=== PATIENT | female | born 1950 | race Caucasian/White ===

== ENCOUNTER 2017-03-07 20:08 | Emergency (ER) | payer OTHER, MEDICAID ==
[~2017-03-07] VITALS: Ht 157.5 cm; Wt 113.4 kg
[2017-03-07 20:24] VITALS: BP_SYST 182
[2017-03-07] MEDS ORDERED: ACETAMINOPHEN/CODEINE 300 MG-30 MG TABLET PO ONE (21:15)
--- NOTE | 2017-03-07 21:18 | NUR ---
Patient to ER bed 3 to gown for evaluation. Side rails up. Report given to Schuyler BUNN.
--- NOTE | 2017-03-07 21:20 | NUR ---
Pt had a mechanical fall resulting in hurting her R ankle. Pain with ROM. Will continue to monitor. No distress needed.
--- NOTE | 2017-03-07 21:25 | NUR ---
ER Dr. Weinberg at bedside examining patient.
[2017-03-07] MEDS ORDERED: KETOROLAC TROMETHAMINE 60 MG/2 ML VIAL IM ONE (22:30)
[2017-03-07] MEDS ORDERED: MORPHINE 4 MG/ML INJ. SYRINGE IM ONE (23:45)
[2017-03-08] MEDS ORDERED: MORPHINE 2 MG/ML INJ. SYRINGE ONE (00:07)
[2017-03-08 01:30] VITALS: BP_SYST 104
--- NOTE | 2017-03-08 01:30 | NUR ---
Patient given written and verbal discharge instructions and verbalizes understanding. ER MD discussed with patient the results and treatment provided. Patient in stable condition. ID arm band removed. Rx of Naproysn given. Patient educated on pain management and to follow up with PMD. Pain Scale 0/10. Opportunity for questions provided and answered.
== END 2017-03-08 01:30 | disposition home or self-care (01) ==
LOC: SED 20:08
DX: S93.401A Sprain of unspecified ligament of right ankle, initial encounter (principal); N18.9 Chronic kidney disease, unspecified; E11.22 Type 2 diabetes mellitus with diabetic chronic kidney disease; W01.0XXA Fall on same level from slipping, tripping and stumbling without subsequent striking against object, initial encounter; Y93.89 Activity, other specified; Y92.89 Other specified places as the place of occurrence of the external cause; Y99.8 Other external cause status
CPT/HCPCS: 73600; 96372; 99284; J1885; J2270

== ENCOUNTER 2018-01-31 00:18 | Inpatient (IN) | payer OTHER, MEDICAID ==
[~2018-01-31] VITALS: Ht 154.9 cm; Wt 108.0 kg
[2018-01-31 00:20] VITALS: BP_SYST 103
[2018-01-31] MEDS ORDERED: NACL 0.9% 1,000 ML IV ONE (00:22)
--- NOTE | 2018-01-31 00:23 | NUR ---
Pt was brought in by BLS complaining of right ankle pain s/p fall. Per EMT, pt was trying to plug in her scooter when her leg gave out causing patient to fall. Per patient, she felt as if it twisted and noticed that her right ankle was "doing something else than her normal leg." noted swelling to right ankle. Pt able to move toes minimally due to pain. Pedal pulse palpable. No other injuries/complaints per patient or noted.
--- NOTE | 2018-01-31 00:23 | NUR ---
Patient to ER bed 6 to gown for evaluation. Side rails up.
--- NOTE | 2018-01-31 00:24 | NUR ---
ER Dr. Silva at bedside examining patient.
[2018-01-31] MEDS ORDERED: MORPHINE 4 MG/ML INJ. SYRINGE IVP ONE ×2 (00:30→02:00)
[2018-01-31] MEDS ORDERED: DIPHENHYDRAMINE INJ 50 MG/ML VIAL IVP ONE (00:30)
[2018-01-31] MEDS ORDERED: ONDANSETRON HCL 4 MG/2 ML VIAL IVP ONE (00:30)
--- NOTE | 2018-01-31 00:33 | NUR ---
Xray at patient bedside. Pt tolerated well.
[2018-01-31] MEDS ORDERED: GABA-529 PO (00:52)
[2018-01-31] MEDS ORDERED: BACTROBAN TP (00:52)
[2018-01-31] MEDS ORDERED: FENO48TA4 PO (00:52)
[2018-01-31] MEDS ORDERED: GLIP-214 PO (00:52)
[2018-01-31] MEDS ORDERED: DITXL5 PO (00:52)
[2018-01-31] MEDS ORDERED: MIRT30TA7 PO (00:52)
[2018-01-31] MEDS ORDERED: TRAM1TAB33 PO (00:52)
[2018-01-31] MEDS ORDERED: LIP10 PO (00:52)
[2018-01-31] MEDS ORDERED: GLUC1VIA4 IJ (00:52)
[2018-01-31] MEDS ORDERED: INSNLG7030 SUBCUT ×2 (00:52)
[2018-01-31] MEDS ORDERED: FURO-150 PO (00:52)
[2018-01-31] MEDS ORDERED: ALEN70TA27 PO (00:52)
[2018-01-31] MEDS ORDERED: LEVOCETRIZINE PO (00:52)
[2018-01-31] MEDS ORDERED: LEVO-100 PO (00:52)
[2018-01-31] MEDS ORDERED: IBUP-1969 PO (00:52)
[2018-01-31] MEDS ORDERED: CLOB50SO2 TP (00:52)
[2018-01-31] MEDS ORDERED: LORA-259 PO (00:52)
[2018-01-31] MEDS ORDERED: BETA45CR3 TP (00:52)
[2018-01-31] MEDS ORDERED: ESCI10TA PO (00:52)
[2018-01-31] MEDS ORDERED: SSREG SUBCUT (00:52)
[2018-01-31] MEDS ORDERED: FLUT16SP16 NS (00:52)
[2018-01-31] MEDS ORDERED: TERC45CR3 VG (00:52)
[2018-01-31] MEDS ORDERED: NYSCR30 TP (00:52)
--- NOTE | 2018-01-31 00:52 | NUR ---
Medication reconciliation completed with information provided by patient. Any prior medication reconciliation on file was reviewed and corrected.
--- NOTE | 2018-01-31 01:02 | NUR ---
Medications were given, pt tolerated well. No adverse reaction, will continue to monitor.
[2018-01-31 01:24] LABS: BASOPHILS # (AUTO) 0.2 K/uL (0.0-0.2); BASOPHILS % (AUTO) 1.6 % (0.0-2.0); EOSINOPHILS # (AUTO) 0.3 K/uL (0.0-0.4); HEMATOCRIT 41.6 % (36-48); HEMOGLOBIN 13.2 g/dL (12.0-16.0); LYMPHOCYTES # (AUTO) 2.9 K/uL (1.0-5.5); LYMPHOCYTES % (AUTO) 28.3 % (20.5-51.5); MEAN CORPUSCULAR HEMOGLOBIN 25 pg (27-31); MEAN CORPUSCULAR HGB CONC 32 % (32-36); MEAN CORPUSCULAR VOLUME 78 fL (79.0-98.0); MONOCYTES # (AUTO) 0.5 K/uL (0.0-1.0); MONOCYTES % (AUTO) 5.1 % (1.7-9.3); NEUTROPHILS # (AUTO) 6.5 K/uL (1.8-7.7); PLATELET COUNT (AUTO) 401 K/uL (130-430); RED BLOOD CELL COUNT(AUTO) 5.35 MIL/uL (4.2-6.2); RED CELL DISTRIBUTION WIDTH 14.9 % (9.0-15.0); WHITE BLOOD COUNT (AUTO) 10.4 K/uL (4.8-10.8)
[2018-01-31 01:26] LABS: CALCIUM 8.5 mg/dL (8.4-11.0); CREATININE 1.72 mg/dL (0.55-1.30); POTASSIUM 3.8 mmol/L (3.5-5.1)
[2018-01-31 01:33] LABS: PROTHROMBIN TIME 10.1 SECS (9.5-12.5)
[2018-01-31 01:34] LABS: ALBUMIN 3.2 g/dL (3.4-4.8); TOTAL BILIRUBIN 0.3 mg/dL (0.0-1.0)
--- NOTE | 2018-01-31 02:19 | NUR ---
Patient will be admitted to care of Dr. Burleson. Admitted to Med Surg unit. Will go to room 135. Belongings list completed. Summary report printed. Report will be given at bedside.
--- NOTE | 2018-01-31 02:24 | NUR ---
ADMISSION NOTE Received patient from ER via naresh, received report from Eulalia BUNN. Patient admitted with diagnosis of ankle fracture. Patient oriented to hospital routine, call light, toileting and safety-patient verbalized understanding.
[2018-01-31 02:27] VITALS: BP_SYST 157
--- NOTE | 2018-01-31 02:43 | NUR ---
INITIAL NOTE PATIENT RECEIVED FROM ADMIT NURSE JT. PATIENT IS RESTING IN BED, STABLE, NO SIGNS OF RESPIRATORY DISTRESS. PATIENT ORIENTED TO ROOM. CALL LIGHT- TEACH BACK IS SUCCESSFUL. BED IS LOCKED, ALARMED, AND AT THE LOWEST LEVEL. FALL AND SAFETY PRECAUTIONS WILL BE IN PLACE THROUGHOUT THE SHIFT.
--- NOTE | 2018-01-31 03:04 | NUR ---
Consultation Called Reason for Consultation: RT Foot Fracture Was consult called: Y Person who was notified: Ashly Consulting Physician: Dr. Fitzgerald (Dr. Mary trailers and motor homes salesperson) Ratoprinter Ordering Physician: Dr. Burleson
--- NOTE | 2018-01-31 03:18 | NUR ---
PAGED DR. JOHNSON FOR NEW ADMISSION ROOM 114B REGARDING ORDERS.
--- NOTE | 2018-01-31 04:08 | NUR ---
PAGED DR. JOHNSON FOR NEW ADMISSION IN ROOM 114B REGARDING ORDERS.
--- NOTE | 2018-01-31 04:35 | NUR ---
PAGED DR. JOHNSON FOR NEW ADMISSION IN ROOM 114B REGARDING ORDERS.
--- NOTE | 2018-01-31 04:40 | NUR ---
COMMUNICATION WITH DR. LIDA HILTON HAS CALLED BACK AT THIS TIME, MD MADE AWARE THAT MORPHINE GIVEN IN THE ER WAS INEFFECTIVE FOR THE PATIENT. ORDERS RECEIVED, READ BACK, AND VERIFIED.
[2018-01-31] MEDS ORDERED: LORazepam 1 MG TABLET PO SCH (04:45)
[2018-01-31] MEDS: HYDROmorphone 2 MG/ML VIAL IVP PRN ×3 (05:37→23:33)
--- NOTE | 2018-01-31 05:37 | NUR ---
PAIN NOTE PATIENT GIVEN PRN MEDICATION FOR SEVERE PAIN PER MD ORDERS. PATIENT TOLERATED WELL. PATIENT IS STABLE, NO SIGNS OF RESPIRATORY DISTRESS. CALL LIGHT WITHIN REACH. BED IS LOCKED, ALARMED, AND AT THE LOWEST LEVEL.
--- NOTE | 2018-01-31 06:09 | NUR ---
STRAIGHT CATHETER STRAIGHT CATH PERFORMED AT THIS TIME PER MD ORDERS FOR PATIENT'S URINALYSIS LAB ORDERED SINCE PATIENT IS INCONTINENT. PATIENT TOLERATED WELL. 200 MLS CLOUDY YELLOW URINE OUTPUT AT THIS TIME, PATIENT TOLERATED WELL. URINALYSIS SAMPLE SENT TO LAB.
[2018-01-31 06:33] LABS: BILIRUBIN,URINE NEGATIVE (NEGATIVE); BLOOD, URINE 1+ (NEGATIVE); CLARITY/URINE HAZY (CLEAR); COLOR,URINE YELLOW (YELLOW); GLUCOSE,URINE 3+ (NEGATIVE); KETONES,URINE NEGATIVE (NEGATIVE); LEUKOCYTE ESTERASE ,URINE 2+ (NEGATIVE); NITRITE, URINE NEGATIVE (NEGATIVE); PH,URINE 6.5 (5.0-8.0); PROTEIN URINE NEGATIVE (NEGATIVE); UROBILINOGEN,URINE 0.2 (0.2-1.0)
[2018-01-31 06:45] LABS: BACTERIA,URINE MANY /HPF (None Seen); RBC,URINE 0-3 /HPF (0-3); WBC,URINE >100 /HPF (0-3)
[2018-01-31 06:46] LABS: MUCUS,URINE None Seen /LPF (None Seen)
[2018-01-31] MEDS: INSULIN REGULAR, HUMAN 100 UNITS/ML, 10 ML VIAL (novoLIN R) SUBCUT PRN ×4 (06:52→21:20)
--- NOTE | 2018-01-31 06:55 | NUR ---
CLOSING NOTE PATIENT IS SLEEPING, STABLE, NO SIGNS OF RESPIRATORY DISTRESS. PATIENT HAD COMPLETE RELIEF FROM PAIN DURING REASSESSMENT FOR PRN PAIN MEDICATION GIVEN WHEN ASKED AT 0600. LOWER EXTREMITIES HAVE BEEN KEPT ELEVATED THROUGHOUT THE SHIFT, NEUROVASCULAR CHECKS COMPLETED [id number] HAVE BEEN WNL. BLOOD SUGAR AT THIS TIME COVERED BY INSULIN COVERAGE PER SSI ORDERED BY MD. CALL LIGHT WITHIN REACH. FALL AND SAFETY PRECAUTIONS HAVE BEEN IN PLACE THROUGHOUT THE SHIFT. BED IS LOCKED, AND AT THE LOWEST LEVEL. WILL CONTINUE TO MONITOR UNTIL SHIFT REPORT IS GIVEN AT BEDSIDE TO AM NURSE.
[2018-01-31] MEDS ORDERED: OXYB5TAB11 PO (07:42)
--- NOTE | 2018-01-31 07:50 | NUR ---
Opening note patient is resting in bed, A&Ox4, assessment completed, blood pressure was 89/61, will retake before administrating morning meds, educated money counter light system and importance of elevating ankle, patient verbalized understanding, no other needs at this time, bed in the lowest position, bed alarm on, call light within reach, bed close to nurse station, two side rails up, fall and aspiration precautions on place.
[2018-01-31] MEDS: MUPIROCIN 2% TOPICAL OINTMENT 22 GM TP SCH (07:54)
[2018-01-31] MEDS: NYSTATIN 30 GM TOPICAL CREAM TP SCH ×2 (07:54→21:12)
[2018-01-31] MEDS: GABAPENTIN 100 MG CAPSULE PO SCH ×3 (08:47→21:11)
[2018-01-31] MEDS: glipiZIDE XL 5 MG TAB ( GLUCOTROL XL) PO SCH ×2 (08:47→21:11)
[2018-01-31] MEDS: OXYBUTYNIN CHLORIDE 5 MG TABLET PO SCH ×2 (08:47→21:11)
--- NOTE | 2018-01-31 08:47 | NUR ---
Medication patient is resting in bed, blood pressure was 79/54 contraindicating lasix administration, educated on medication uses and side effects, patient verbalized understanding and tolerated well, no other needs at this time, bed in the lowest position, bed alarm on, call light within reach, bed close to nurse station, two side rails up, fall and aspiration precautions on place.
[2018-01-31] MEDS: CITALOPRAM HYDROBROMIDE 20 MG TABLET PO SCH (08:48)
[2018-01-31] MEDS: FENOFIBRATE NANOCRYSTALLIZED 48 MG TABLET (TRICOR) PO SCH (08:48)
[2018-01-31] MEDS: FUROSEMIDE 20 MG TABLET PO SCH (09:00)
[2018-01-31] MEDS ORDERED: OXYBUTYNIN CHLORIDE 5 MG XL TAB PO SCH (09:00)
[2018-01-31] MEDS: ENOXAPARIN SODIUM 40 MG/0.4 ML SYRINGE SUBCUT SCH (09:02)
[2018-01-31] MEDS: FLUTICASONE PROPIONATE 50 mCg/SPRAY 16 GM NS SCH ×2 (09:02→21:12)
[2018-01-31] MEDS: INSULIN Aspart Prota/Aspar MIX 70-30, 100 UNITS/ML, 10 ML VIAL SUBCUT SCH ×2 (09:09→17:00)
[2018-01-31 09:23] VITALS: BP_SYST 89
--- NOTE | 2018-01-31 10:04 | NUR ---
Nutrition Update Sahil Scale 16 noted. Pt admitted for R foot fracture. Diet: [facility] BMI: 45 kg/m2 RD to follow per nutrition care standards.
--- NOTE | 2018-01-31 10:05 | NUR ---
rounds patient is resting in bed, blood pressure was 89/61 will continue to monitor, no other needs at this time, bed in the lowest position, bed alarm on, call light within reach, bed close to nurse station, two side rails up, fall and aspiration precautions on place. Addendum: 01/31/18 at 1315 by Qing Gandara RN 1202 BP BP taken again on the right arm and it was 128/52, patient stated hx of left arm reading low BP
--- NOTE | 2018-01-31 11:35 | NUR ---
Medication patient is resting in bed, educated on medication uses and side effects, patient verbalized understanding and tolerated well, no other needs at this time, bed in the lowest position, bed alarm on, call light within reach, bed close to nurse station, two side rails up, fall and aspiration precautions on place.
[2018-01-31 12:02] VITALS: BP_SYST 128
--- NOTE | 2018-01-31 12:30 | NUR ---
rounds patient is resting in bed with a visitor at the bedside, patient states she has pain in her right foot but it is tolerable, no other needs at this time, bed in the lowest position, bed alarm on, call light within reach, bed close to nurse station, two side rails up, fall and aspiration precautions on place.
--- NOTE | 2018-01-31 14:00 | NUR ---
Dr Stanleyium rounds assessed patient
--- NOTE | 2018-01-31 14:30 | NUR ---
Called [facility] spoke with nurse Rowell regarding patient's home medication to clarify Insulin dosages, informed Dr. Burleson, continue with medications as ordered.
--- NOTE | 2018-01-31 15:08 | NUR ---
Medication patient is resting in bed, educated on medication use and side effects, educated on pain management and to not let pain level get higher than what is tolerable, patient verbalized understanding and tolerated well, IV line patent and intact, no other needs at this time, bed at the lowest position, bed alarm on, two side rails up, call light within reach, fall and aspiration precautions in place.
[2018-01-31 16:02] VITALS: BP_SYST 108
--- NOTE | 2018-01-31 17:41 | NUR ---
Medication patient is resting in bed with eyes closed, breathing is easy and non-labored, awoken easily for med administration, educated on medication uses and side effects, patient verbalized understanding and tolerated well, no other needs at this time, bed in the lowest position, bed alarm on, call light within reach, bed close to nurse station, two side rails up, fall and aspiration precautions on place. Addendum: 01/31/18 at 1747 by Qing Gandara RN Novolog did not give due to patient because sleepy, may not eat right away, continuing to monitor patient.
--- NOTE | 2018-01-31 18:39 | NUR ---
Closing note patient is resting in bed with her eyes closed, breathing easily and non-labored, all needs met for the shift, IV line clean and intact, scheduled Novolog was not given because the patient was drowsy and has not ate her dinner, will endorse report to noc shift nurse, bed at the lowest position, bed alarm on, call light within reach, two side rails up, fall and aspiration precautions in place.
--- NOTE | 2018-01-31 19:45 | NUR ---
Initial Note Received patient asleep but easily arousable. Alert and oriented. Denies any pain, SOB or n/v at this time. Right leg splint and dressing CDI. No peripheral edema noted. Saline lock. Incontinent of bowel and bladder. Repositioned. Fall and bleeding precautions observed. Care and monitoring provided per protocol. Needs attended. Call light within reach. Bed alarm on and at lowest position at all times. Kept warm and comfortable.
--- NOTE | 2018-01-31 19:59 | NUR ---
FOLLOW-UP CONSULTATION PAGED/CALLED Reason for Consultation: Right Foot FX Person Who was Notified: Hayley Consulting Physician: Dr. Fitzgerald; oncall- Dr. Mary Ordering Physician: Dr. Velásquez
[2018-01-31 20:00] VITALS: BP_SYST 97
[2018-01-31] MEDS: ATORVASTATIN 10 MG TABLET PO SCH (21:11)
[2018-01-31] MEDS: MIRTAZAPINE 15 MG TABLET PO SCH (21:11)
--- NOTE | 2018-01-31 21:15 | NUR ---
RN Note Due meds given, tolerated well. Latest blood sugar was 230, coverage given. Patient ate dinner about 80%. Needs attended. Right leg splint and elevated on pillows. Neurovascular checks done and WNL.
[2018-01-31] MEDS: IBUPROFEN 600 MG TABLET PO PRN (22:35)
--- NOTE | 2018-01-31 23:30 | NUR ---
RN Note Medicated for right leg pain per patient's request. Will continue to monitor.
[2018-02-01 00:14] VITALS: BP_SYST 108
--- NOTE | 2018-02-01 02:00 | NUR ---
RN Note Sleeping at this time. Arousable. NO SOB or grimacing noted.
--- NOTE | 2018-02-01 04:00 | NUR ---
RN Note Asleep. Moves occasionally. No distress noted.
[2018-02-01] MEDS: HYDROmorphone 2 MG/ML VIAL IVP PRN ×2 (05:55→20:28)
[2018-02-01] MEDS: INSULIN REGULAR, HUMAN 100 UNITS/ML, 10 ML VIAL (novoLIN R) SUBCUT PRN ×4 (06:21→20:34)
--- NOTE | 2018-02-01 06:34 | NUR ---
End Note Afebrile. VS stable. No complain of SOB or n/v throughout the night. Medicated for pain twice all night. Neurovascular checks are all WNL. Right leg splint and rigoberto wrap dressing CDI. Elevated on a pillow. Latest blood sugar was 226, coverage given. Bleeding and skin precaution observed. Incontinence and skin care provided. Care and monitoring provided per protocol. Needs attended. Call light within reach. Bed alarm on and at lowest position at all times. Kept clean, warm and comfortable.
--- NOTE | 2018-02-01 07:30 | NUR ---
AM ROUNDS: PATIENT LYING ON THE BED,AWAKE,ALERT AND ORIENTED X4. BEDSIDE REPORT GIVEN BY NIGHT NURSE BRYCE. RIGHT FOOT WITH SUGAR CHAN SPLINT,DRY AND CLEAN.IV SALINE LOCK AT RIGHT FOREARM INTACT.NO COMPLAINED THIS TIME. CALL LIGHT WITH IN REACH. BED LOCKED AT LOWEST POSITION. CONTINUE TO MONITOR.
--- NOTE | 2018-02-01 08:48 | NUR ---
Consult follow up: for Dr. Mary, regarding right foot fracture, ordered by Dr. Burleson, spoke with Hayley at exchange. she said she would resend consult.
[2018-02-01] MEDS: ENOXAPARIN SODIUM 40 MG/0.4 ML SYRINGE SUBCUT SCH (09:19)
[2018-02-01] MEDS: FLUTICASONE PROPIONATE 50 mCg/SPRAY 16 GM NS SCH ×2 (09:20→20:22)
[2018-02-01] MEDS: GABAPENTIN 100 MG CAPSULE PO SCH ×3 (09:20→20:22)
[2018-02-01] MEDS: FENOFIBRATE NANOCRYSTALLIZED 48 MG TABLET (TRICOR) PO SCH (09:20)
[2018-02-01] MEDS: OXYBUTYNIN CHLORIDE 5 MG TABLET PO SCH ×2 (09:21→20:22)
[2018-02-01] MEDS: glipiZIDE XL 5 MG TAB ( GLUCOTROL XL) PO SCH ×2 (09:21→20:22)
[2018-02-01] MEDS: CITALOPRAM HYDROBROMIDE 20 MG TABLET PO SCH (09:21)
[2018-02-01] MEDS: FUROSEMIDE 20 MG TABLET PO SCH (09:22)
[2018-02-01] MEDS: NYSTATIN 30 GM TOPICAL CREAM TP SCH ×2 (09:23→20:23)
[2018-02-01] MEDS: MUPIROCIN 2% TOPICAL OINTMENT 22 GM TP SCH (09:24)
[2018-02-01 09:32] VITALS: BP_SYST 130
[2018-02-01] MEDS: INSULIN Aspart Prota/Aspar MIX 70-30, 100 UNITS/ML, 10 ML VIAL SUBCUT SCH ×2 (10:00→17:14)
--- NOTE | 2018-02-01 10:14 | NUR ---
rn rounds: patient sleeping.not in any distress.
--- NOTE | 2018-02-01 11:27 | NUR ---
BLOOD SUGAR: BLOOD XTEDR=065PR/DL,REGULAR INSULIN 8 UNITS SUBQ GIVEN PER SLIDING SCALE.NO UNTOWARD MANIFESTATIONS NOTED THIS TIME.
[2018-02-01 12:20] VITALS: BP_SYST 146
--- NOTE | 2018-02-01 13:10 | NUR ---
RN ROUNDS: PATIENT HAVING LUNCH. NO PROBLEM.
--- NOTE | 2018-02-01 15:30 | NUR ---
INCONTINENT: CARE RENDERED BY COURTROOM REPORTER.VOIDED. TURNED TO SIDES LOG ROLLING.
--- NOTE | 2018-02-01 15:54 | NUR ---
F/U CALL: CALLED C#[phone] REECE AND LEFT MESSAGE TO CALL [facility] FOR CONSULTS.
[2018-02-01 16:24] VITALS: BP_SYST 135
--- NOTE | 2018-02-01 17:19 | NUR ---
blood sugar: blood sugar taken,with insulin coverage given per sliding scale. novolog 70/30 60 units subq given as ordered. no untoward manifestations noted this time.
--- NOTE | 2018-02-01 18:52 | NUR ---
CLOSING NOTES: RESTING. NEURO MARCANO WITHIN NORMAL LIMIT. CALL LIGHT WITH IN REACH. BED LOCKED AT LOWEST POSITION. BED ALARM ON. RIGHT FOOT SPLINT CLEAN AND DRY. ELEVATED AT ALL TIMES. CONTINUE TO MONITOR.
--- NOTE | 2018-02-01 19:30 | NUR ---
Initial Notes Received handoff report from offgoing nurse at the bedside. Patient is resting comfortably in bed with eyes closed. No SOB, no acute distress, no signs of pain or facial grimacing. Breathing is even and unlabored with visible chest rise and fall noted. Bed is locked, in the lowest position, 2x side rails up, bed alarm is on. Call light is within reach. Will continue with plan of care.
[2018-02-01 20:00] VITALS: BP_SYST 110
--- NOTE | 2018-02-01 20:15 | NUR ---
Patient had an episode of incontinence. PIECE PRESSER at the bedside to provide incontinence care. Patient is now clean and dry, resting comfortably in bed.
[2018-02-01] MEDS: ATORVASTATIN 10 MG TABLET PO SCH (20:22)
[2018-02-01] MEDS: MIRTAZAPINE 15 MG TABLET PO SCH (20:23)
--- NOTE | 2018-02-01 20:28 | NUR ---
Patient is complaining of severe right ankle pain. Provided Dilaudid PRN per MD order, see eMAR for details.
--- NOTE | 2018-02-01 20:58 | NUR ---
Dr Mary at the bedside to see the patient. Dr Mary answered all questions for the patient at this time, and stated that he will order physical therapy for this patient.
[2018-02-01] MEDS: IBUPROFEN 600 MG TABLET PO PRN (23:09)
--- NOTE | 2018-02-01 23:09 | NUR ---
Patient stated she still has pain on her right ankle. Provided Motrin PRN per MD order, see eMAR for details.
[2018-02-02] MEDS: HYDROmorphone 2 MG/ML VIAL IVP PRN ×4 (01:22→19:18)
--- NOTE | 2018-02-02 01:22 | NUR ---
Patient is complaining of pain on her right ankle. provided Dilaudid PRN per MD order, see eMAR for details.
--- NOTE | 2018-02-02 01:56 | NUR ---
Patient is sleeping, resting comfortably in bed. Breathing is even and unlabored with visible chest rise and fall noted. No SOB, no acute distress, no signs of pain or facial grimacing at this time. Bed is locked, in the lowest position, 2x side rails up, bed alarm is on. Call light is within reach.
--- NOTE | 2018-02-02 03:45 | NUR ---
Patient is resting comfortably in bed with eyes closed. No SOB, no acute distress, no signs of pain or facial grimacing. Breathing is even and unlabored with visible chest rise and fall noted. Call light is within reach.
[2018-02-02 04:17] VITALS: BP_SYST 91
[2018-02-02] MEDS: IBUPROFEN 600 MG TABLET PO PRN (06:35)
--- NOTE | 2018-02-02 06:35 | NUR ---
PATIENT IS COMPLAINING OF MILD PAIN ON HER RIGHT ANKLE. PROVIDED PATIENT WITH MOTRIN PRN PER MD ORDER, SEE EMAR FOR DETAILS.
--- NOTE | 2018-02-02 07:44 | NUR ---
Closing Notes [facility]. Patient is awake and alert, resting comfortably in bed. No SOB, no acute distress. IV site is intact, currently infusing IVF at the ordered rate, see eMAR. Bed is locked, in the lowest position, 2x side rails up. Patient refuses bed alarm at this time. Call light is within reach. Fall and safety precautions maintained. All needs have been met during this shift. Addendum: 02/02/18 at 0746 by Kaila Canseco RN Error* wrong patient
--- NOTE | 2018-02-02 07:46 | NUR ---
Closing Notes Handoff report given to oncoming dayshift nurse at the bedside. Patient is awake and alert, resting comfortably in bed. No SOB, no acute distress, no complaints of pain at this time. IV site is intact, dressing clean and dry, saline locked. Bed is locked, in the lowest position, 2x side rails up, bed alarm is on. Ice packs applied to right lower extremities. Call light is within reach. Fall and safety precautions maintained. All needs have been met during this shift.
[2018-02-02 08:00] VITALS: BP_SYST 109
--- NOTE | 2018-02-02 08:00 | NUR ---
initial notes rec patient awake alert with hob elevated. resp easy and unlabored. no sob noted. rt foot with a splint , no neuro deficit noted. bed to the lowest posittion and side rails up and locked. call light within reached and knows when to call for assists.
[2018-02-02] MEDS: FLUTICASONE PROPIONATE 50 mCg/SPRAY 16 GM NS SCH ×2 (08:49→20:24)
[2018-02-02] MEDS: ENOXAPARIN SODIUM 40 MG/0.4 ML SYRINGE SUBCUT SCH (08:51)
[2018-02-02] MEDS: FENOFIBRATE NANOCRYSTALLIZED 48 MG TABLET (TRICOR) PO SCH (08:54)
[2018-02-02] MEDS: GABAPENTIN 100 MG CAPSULE PO SCH ×3 (08:54→20:24)
[2018-02-02] MEDS: FUROSEMIDE 20 MG TABLET PO SCH (08:54)
[2018-02-02] MEDS: CITALOPRAM HYDROBROMIDE 20 MG TABLET PO SCH (08:55)
[2018-02-02] MEDS: glipiZIDE XL 5 MG TAB ( GLUCOTROL XL) PO SCH ×2 (08:55→20:24)
[2018-02-02] MEDS: MUPIROCIN 2% TOPICAL OINTMENT 22 GM TP SCH (08:56)
[2018-02-02] MEDS: NYSTATIN 30 GM TOPICAL CREAM TP SCH ×2 (08:56→20:24)
[2018-02-02] MEDS: OXYBUTYNIN CHLORIDE 5 MG TABLET PO SCH ×2 (08:56→20:24)
--- NOTE | 2018-02-02 10:00 | NUR ---
rounds asleep when rounds made. denies pain. call light within reached. no acute distress noted.
[2018-02-02 12:02] VITALS: BP_SYST 115
[2018-02-02] MEDS: INSULIN REGULAR, HUMAN 100 UNITS/ML, 10 ML VIAL (novoLIN R) SUBCUT PRN ×2 (12:06→17:38)
[2018-02-02] MEDS: INSULIN Aspart Prota/Aspar MIX 70-30, 100 UNITS/ML, 10 ML VIAL SUBCUT SCH ×2 (12:09→17:40)
--- NOTE | 2018-02-02 12:30 | NUR ---
rounds no hypo hyperglycemic reaction noted no sob noted. call light within reached.
--- NOTE | 2018-02-02 13:41 | NUR ---
Case mgt: Met w/pt at bedside-she asked me to add her son Stalin to face sheet. She got up with PT today-couldn't amb far-had just started PT at [facility] a few days prior to fall--has motorized scooter and two FWW. She will discuss with Dr. Burleson dc plan for back to [place] vs. SNF and I gave her SNF list and brochures. She uses [facility] van transport-no family available to take her to appointments but she is in contact with her son Stalin at [phone] (area code confirmed w/pt). CM to f/u for dc plan-I explained choice of snf to pt.
[2018-02-02 16:02] VITALS: BP_SYST 118
[2018-02-02 16:44] VITALS: BP_SYST 115
--- NOTE | 2018-02-02 17:30 | NUR ---
rounds no hypo hyperglycemic reaction noted. no osb noted. call light within reached. bed to the lowest position. turned repositioned self in bed.
--- NOTE | 2018-02-02 18:45 | NUR ---
closing notes pt with hob elevated. dr gonsales was called and asking for a breathing tx pt has wheezing. stated will come and see patient first. bed in low position and side rails up and locked. call light within reached. no sob noted.
--- NOTE | 2018-02-02 19:10 | NUR ---
Initial Notes Handoff report received from offgoing nurse at the bedside. Patient is awake and alert, resting comfortably in bed. No SOB, no acute distress. Complaints of pain, will medicate. Bed is locked, in the lowest position, 2x side rails up, bed alarm is on. Call light is within reach. Encouraged patient to call. Son is at the bedside. Will continue with plan of care.
[2018-02-02 19:15] VITALS: BP_SYST 142
--- NOTE | 2018-02-02 19:18 | NUR ---
Patient is complaining of severe pain to her right foot. Provided Dilaudid PRN per MD order, see eMAR for details.
--- NOTE | 2018-02-02 20:15 | NUR ---
Dr Burleson at the bedside to see this patient. All questions the patient has have been answered by Dr Burleson at this time.
[2018-02-02] MEDS: ATORVASTATIN 10 MG TABLET PO SCH (20:24)
[2018-02-02] MEDS: MIRTAZAPINE 15 MG TABLET PO SCH (20:24)
[2018-02-02] MEDS ORDERED: LevALBUTEROL HCL 1.25 MG/0.5 ML *CONC.* VIAL.NEB (XOPENEX CONC.) INH PRN (20:30)
[2018-02-02] MEDS: LevALBUTEROL HCL 1.25 MG/0.5 ML *CONC.* VIAL.NEB (XOPENEX CONC.) INH SCH ×2 (22:06→22:42)
--- NOTE | 2018-02-02 22:12 | NUR ---
Patient is resting comfortably in bed with eyes closed. Breathing is even and unlabored with visible chest rise and fall noted. No SOB, no acute distress, no signs of pain or facial grimacing. Breathing is even and unlabored with visible chest rise and fall noted. Bed is locked, in the lowest position, 2x side rails up, bed alarm is on. Call light is within reach.
--- NOTE | 2018-02-02 23:30 | NUR ---
Patient is resting comfortably in bed, awake. No SOB, no acute distress, no complaints of pain. Bed is locked, in the lowest position, 2x side rails up, bed alarm is on. Call light is within reach. Encouraged patient to call.
[2018-02-03] VITALS (7 sets, daily range): BP systolic 91–135
--- NOTE | 2018-02-03 01:37 | NUR ---
Patient is resting comfortably in bed with eyes closed. Breathing is even and unlabored with visible chest rise and fall noted. No SOB, no acute distress, no signs of pain or facial grimacing. Bed is locked, in the lowest position, 2x side rails up, bed alarm is on. Call light is within reach.
--- NOTE | 2018-02-03 02:58 | NUR ---
Patient is awake and alert, currently using a word search puzzle book. No SOB, no acute distress, no complaints of pain at this time. Bed is locked, in the lowest position, 2x side rails up, bed alarm is on. Call light is within reach. Encouraged patient to call for assistance.
[2018-02-03] MEDS: HYDROmorphone 2 MG/ML VIAL IVP PRN ×3 (04:42→14:02)
--- NOTE | 2018-02-03 04:42 | NUR ---
Patient is complaining of right foot pain. Provide Dilaudid PRN per MD order, see eMAR for details.
[2018-02-03] MEDS ORDERED: LORazepam 1 MG TABLET PO PRN (04:45)
--- NOTE | 2018-02-03 07:25 | NUR ---
Opening Note patient resting in bed, HOB elevated, eyes closed, symmetrical chest expansion, no signs of distress, safety precautions in place, bedside table and call light within reach, will continue to monitor patient
[2018-02-03] MEDS: LevALBUTEROL HCL 1.25 MG/0.5 ML *CONC.* VIAL.NEB (XOPENEX CONC.) INH SCH ×3 (07:26→23:09)
--- NOTE | 2018-02-03 07:30 | NUR ---
Closing Notes Handoff report given to oncoming dayshift nurse. Patient is resting comfortably in bed with eyes closed. No SOB, no acute distress, no complaints of pain at this time. IV site is intact, dressing clean and dry, saline locked. Bed is locked, in the lowest position, 2x side rails up, bed alarm is on. Call light is within reach. Fall and safety precautions maintained. All needs have been met during this shift.
[2018-02-03] MEDS: MUPIROCIN 2% TOPICAL OINTMENT 22 GM TP SCH ×2 (09:00→09:19)
[2018-02-03] MEDS: CITALOPRAM HYDROBROMIDE 20 MG TABLET PO SCH (09:16)
[2018-02-03] MEDS: GABAPENTIN 100 MG CAPSULE PO SCH ×3 (09:16→22:20)
[2018-02-03] MEDS: glipiZIDE XL 5 MG TAB ( GLUCOTROL XL) PO SCH ×2 (09:17→22:19)
[2018-02-03] MEDS: FENOFIBRATE NANOCRYSTALLIZED 48 MG TABLET (TRICOR) PO SCH (09:17)
[2018-02-03] MEDS: FUROSEMIDE 20 MG TABLET PO SCH (09:18)
[2018-02-03] MEDS: OXYBUTYNIN CHLORIDE 5 MG TABLET PO SCH ×2 (09:18→22:19)
[2018-02-03] MEDS: NYSTATIN 30 GM TOPICAL CREAM TP SCH ×2 (09:19→22:22)
[2018-02-03] MEDS: ENOXAPARIN SODIUM 40 MG/0.4 ML SYRINGE SUBCUT SCH (09:20)
[2018-02-03] MEDS: FLUTICASONE PROPIONATE 50 mCg/SPRAY 16 GM NS SCH ×2 (09:24→22:18)
[2018-02-03] MEDS: INSULIN Aspart Prota/Aspar MIX 70-30, 100 UNITS/ML, 10 ML VIAL SUBCUT SCH ×2 (09:41→17:24)
--- NOTE | 2018-02-03 09:43 | NUR ---
Medication Administration patient educated regarding meds, verbalized understanding, tolerated well, requested PRN med for pain, educated her regarding med, verbalized understanding, IV site patent, breathing unlabored on room air, educated patient on use of call light for asssistance, verbalized understanding, call light and bedside table left within reach, will continue to monitor patient
[2018-02-03] MEDS: INSULIN REGULAR, HUMAN 100 UNITS/ML, 10 ML VIAL (novoLIN R) SUBCUT PRN ×3 (11:50→22:50)
--- NOTE | 2018-02-03 11:53 | NUR ---
Blood Sugar assessed, was 345, insulin administered per sliding scale, educated patient regarding med, verbalized understanding, patient sitting up in bed, stated pain is better, breathing remains unlabored on room air, educated patient on use of call light for assistance verbalized understanding, call light and bedside table left within reach, will continue to monitor patient
--- NOTE | 2018-02-03 13:10 | NUR ---
Patient Eating at this time, HOB elevated, no assistance needed at this time, educated patient on use of call light for assistance verbalized understanding, call light and bedside table left within reach, will continue to monitor patient
--- NOTE | 2018-02-03 13:58 | NUR ---
Dr. Giles At Nurses Station asking about placement for patient, called case management to speak to Dr. Giles about plans
--- NOTE | 2018-02-03 14:08 | NUR ---
Pain meds administered at this time, educated patient regarding med, verbalized understanding, IV site remains patent, educated patient on use of call light for assistance verbalized understanding, call light and bedside table left within reach, will continue to monitor patient
--- NOTE | 2018-02-03 16:30 | NUR ---
CHRISTINA DC PLANNING: SNF REHAB REC'd order for [facility]; but, Pt does not appear to meet criteria for 3 hrs rehab; recommended for SNF per PT. Spoke with Pt at bedside; and, Pt was having difficulty getting good focus & clarity. Per CHRISTINA/Fanny's note, son/Stalin was provided with SNF referral list. CM spoke with son/Stalin who stated his was going to check out the SNFs on the list for the patient; and, they will f/up with Pt this evening and then f/up with CHRISTINA/Sridevi in a.m. tomorrow as this CM informed that hospitalist is recommending for her to transfer as soon as bed can be obtained. Addendum: 02/03/18 at 1656 by Janey Shahid RN CM will leave communication with Monday CM to follow-up regarding transfer.
--- NOTE | 2018-02-03 16:44 | NUR ---
Pagenevin Giles to inform him about + urine culture, awaiting call back Addendum: 02/03/18 at 1651 by Carmela Calloway RN called back, received orders
--- NOTE | 2018-02-03 17:31 | NUR ---
Blood Sugar Assessed insulin sliding scale and scheduled insulin administered per orders, educated patient regarding med, verbalized understanding, tolerated well, educated patient on use of call light for assistance verbalized understanding, call light and bedside table left within reach, will continue to monitor patient
[2018-02-03] MEDS ORDERED: cefTRIAXone 1 GM in D5W 50 ML IV ONE (18:00)
--- NOTE | 2018-02-03 18:13 | NUR ---
Antibiotics hung at this time, educated her regarding meds, verbalized understanding, site remains patent, patient eating dinner at this time, educated patient on use of call light for assistance verbalized understanding, call light and bedside table left within reach, will continue to monitor patient
--- NOTE | 2018-02-03 19:08 | NUR ---
Closing Note patient resting in bed, awake and alert, no complaints of pain at this time, IV site saline locked, Safety precautions remain in place, bedside table and call light within reach, endorsed to retail shift leader nurse
--- NOTE | 2018-02-03 19:35 | NUR ---
OPENING NOTE Received patient awake, AOx2 to name and time. Dressing on right leg/foot is CDI and the heel is on pillow support. IV to RFA is patent. Updated board and reviewed plan of care. Bed locked to lowest position, bed alarm on,and call light w/in reach. Will monitor.
[2018-02-03] MEDS: ATORVASTATIN 10 MG TABLET PO SCH (22:16)
[2018-02-03] MEDS: MIRTAZAPINE 15 MG TABLET PO SCH (22:20)
--- NOTE | 2018-02-03 22:30 | NUR ---
ROUNDS Patient received scheduled medications and tolerated administration. She was reluctant to have accucheck. She eventually agreed and her glucose level was 239 and she received 2 units of regular insulin coverage as ordered. She requested a sandwich and it was given. Safety precautions in place and call light w/in reach. Will continue to monitor.
[2018-02-04] MEDS: HYDROmorphone 2 MG/ML VIAL IVP PRN ×3 (00:19→17:10)
--- NOTE | 2018-02-04 00:20 | NUR ---
ROUNDS Patient spilled water on self. Gown and linen were changed. She reported pain 6/10 to right leg and was administered dilaudid 1mg prn as ordered. Safety precautions in place and call light w/in reach. Will monitor.
--- NOTE | 2018-02-04 02:10 | NUR ---
ROUNDS Patient positioned for comfort. No further needs at this time. Safety precautions remain in place and call light w/in reach. Will monitor.
--- NOTE | 2018-02-04 06:54 | NUR ---
CLOSING NOTES Patient resting quietly and refused morning accucheck. She insisted that her glucose level does not drop and did not allow me to assess. Lights are low and she wanted to stay covered. 20G SL to RFA. Safety precautions in place and call light w/in reach. Will endorse care to oncoming nurse.
--- NOTE | 2018-02-04 07:15 | NUR ---
Opening Note patient resting in bed, easily aroused, no complaints of pain, breathing unlabored on room air, IV site saline locked, safety precautions in place, bedside table and call light left within reach, will continue to monitor patient
[2018-02-04] MEDS: glipiZIDE XL 5 MG TAB ( GLUCOTROL XL) PO SCH ×2 (08:09→22:09)
[2018-02-04] MEDS: FENOFIBRATE NANOCRYSTALLIZED 48 MG TABLET (TRICOR) PO SCH (08:09)
[2018-02-04] MEDS: CITALOPRAM HYDROBROMIDE 20 MG TABLET PO SCH (08:09)
[2018-02-04] MEDS: GABAPENTIN 100 MG CAPSULE PO SCH ×3 (08:09→22:10)
[2018-02-04] MEDS: FLUTICASONE PROPIONATE 50 mCg/SPRAY 16 GM NS SCH ×2 (08:09→22:06)
[2018-02-04] MEDS: LevALBUTEROL HCL 1.25 MG/0.5 ML *CONC.* VIAL.NEB (XOPENEX CONC.) INH SCH ×3 (08:12→23:05)
[2018-02-04] MEDS: MUPIROCIN 2% TOPICAL OINTMENT 22 GM TP SCH (08:15)
[2018-02-04] MEDS: ENOXAPARIN SODIUM 40 MG/0.4 ML SYRINGE SUBCUT SCH (08:15)
[2018-02-04] MEDS: NYSTATIN 30 GM TOPICAL CREAM TP SCH ×2 (08:20→22:11)
[2018-02-04] MEDS: FUROSEMIDE 20 MG TABLET PO SCH (08:35)
[2018-02-04] MEDS: OXYBUTYNIN CHLORIDE 5 MG TABLET PO SCH ×2 (08:42→22:09)
[2018-02-04 08:43] VITALS: BP_SYST 92
--- NOTE | 2018-02-04 11:00 | NUR ---
DC Planning: s/w pt at bedside and concurred with son/Stalin and his /Radha. agreed discharging to preferred snf as follows: [facility] or any facility in [facility].Radha wants pt. close by for her visiting conveniences. provided additional facilities for her consideration., [facility] (No [place]) Addendum: 02/04/18 at 1450 by Sridevi Castañeda RN >>Faxed referral inquiries to: 1: [facility] , fax# [phone], tel# [phone], attn Tl. She indicated that there is no female bed today but there may be bed open tomorrow. >> Call back from Tl after she reviewed the inquiry: the pt. is accepted pending bed availability. lT plans to give bed tomorrow. 2: [facility] , fax# [phone], tel# [phone] attn ONI Gaviria, and fax to [phone] attn Gloria/admission intake.
[2018-02-04] MEDS: INSULIN REGULAR, HUMAN 100 UNITS/ML, 10 ML VIAL (novoLIN R) SUBCUT PRN ×3 (11:15→22:08)
[2018-02-04] MEDS: INSULIN Aspart Prota/Aspar MIX 70-30, 100 UNITS/ML, 10 ML VIAL SUBCUT SCH ×2 (11:16→17:17)
--- NOTE | 2018-02-04 11:18 | NUR ---
Blood Sugar assessed, was 395, insulin administered as scheduled and per sliding scale, patient resting in bed at this time, leg elevated on pillow, breathing unlabored and symmetrical, safety precautions in place, will continue to monitor
[2018-02-04 12:02] VITALS: BP_SYST 99
--- NOTE | 2018-02-04 12:30 | NUR ---
Patient Resting in Bed eyes closed, breathing unlabored on room air, safety precautions in place, bedside table and call light left within reach, will continue to monitor patient
--- NOTE | 2018-02-04 12:59 | NUR ---
Dietitian Recommendations *Recommend [facility] 45 gm Low Fat diet. Please see Nutritional Assessment for details. STEPHANIE GOMEZ
--- NOTE | 2018-02-04 14:11 | NUR ---
Patient Resting in bed/Received Pain meds at this time, breathing unlabored on room air, on the phone, received pain meds per Katelynn RN, patient states pain is tolerable at this time, safety precautions in place, will continue to monitor patient
[2018-02-04 16:02] VITALS: BP_SYST 145
--- NOTE | 2018-02-04 16:20 | NUR ---
Patient Had BM was cleansed and repositioned in bed, no signs of skin breakdown, she was positioned with pillow support, HOB remains elevated, safety precautions remain in place, bedside table and call light left within reach, will continue to monitor patient
--- NOTE | 2018-02-04 17:30 | NUR ---
Blood Sugar Assessed insulin provided as scheduled and PRN, educated patient regarding med. verbalized understanding. tolerated well, pain meds administered as well. educated patient on use of call light for assistance verbalized understanding, call light and bedside table left within reach, will continue to monitor patient
--- NOTE | 2018-02-04 18:55 | NUR ---
Closing Note patient resting in bed, awake and alert, breathing unlabored on room air, IV site saline locked, safety precautions remain in place, bedside table and call light within reach, will endorse to mini shifter nurse
[2018-02-04 19:00] VITALS: BP_SYST 98
--- NOTE | 2018-02-04 19:10 | NUR ---
change of shift.pt.presents quiescent affect;calm.pt.presents rt.foot/ankle fx.extremity in splint;no surgery per the ortho md. .pt's language;[place];primary.general status stable/respiratory status stable@room air.call light/telephone w/in the pt's reach.
[2018-02-04 20:00] VITALS: BP_SYST 98
--- NOTE | 2018-02-04 20:00 | NUR ---
pt.assessed.v/s assessed:b/p values presents low values;pt.asymptomatic.neuro-vacular assessment conducted: skin hue;pink;pale,tactile;skin-temp;warm,movement;pt.capable to move digits:rt.foot x5.pt.states pain level@5: pt. pain medication@2100p.blood glucose assessed;value;240mg/dl.pt.has requested general snacks:diane;agricultural real estate agent has provided the snacks.pt.repositioned.general status stable.respiratory statu stable.call light/telephone placed w/in the pt's reach.
[2018-02-04] MEDS ORDERED: cefTRIAXone 1 GM in D5W 50 ML IV SCH (21:00)
--- NOTE | 2018-02-04 22:00 | NUR ---
pt.assessed.pt.presents quiescent affect calm.viewing tv programming.i have administerd the 2100p medications. no requests@this hour.general status stable.respiratory status stable.pt repositioned.call light/telephone placed w/in the pt's reach.
[2018-02-04] MEDS: DOCUSATE SODIUM 100 MG CAPSULE PO SCH (22:06)
[2018-02-04] MEDS: ATORVASTATIN 10 MG TABLET PO SCH (22:10)
[2018-02-04] MEDS: MIRTAZAPINE 15 MG TABLET PO SCH (22:11)
[2018-02-05] VITALS: BP_SYST 95
--- NOTE | 2018-02-05 | NUR ---
pt.assessed.v/s assessed;b/p values presents low values.pt.symptomatic.pt.had requested medication;pain.i have administered dilaudid;2mg ivp.to f/u re;pain medication efficacy per pain mgx protocol.no additional requests.pt.repositioned.neuro-vascular assessment conducted.general status stable/respiratory status stable.call light/telephone placed w/in the pt's reach.
[2018-02-05] MEDS: HYDROmorphone 2 MG/ML VIAL IVP PRN ×4 (00:08→14:19)
--- NOTE | 2018-02-05 02:00 | NUR ---
pt.assessed.pt.presents quiescent affect;calm,somnolent.pt.repositioned.no c/o pain,nausea,. general status stable.respiratory status stable.call light/telephone placed w/in the pt's reach.
--- NOTE | 2018-02-05 04:00 | NUR ---
pt.assessed.pt.presents quiescent affect;calm somnolent.neuro-vacular assessment conducted.pt.repositioned general status stable.respiratory status stable.call light/telephone placed w/in the pt's reach.
--- NOTE | 2018-02-05 06:30 | NUR ---
pt.assessed.pt.present quiescent affect;view ing tv programing.and cell-phone.pt.requested medication pain.i have administered dilaudid;2mg ivp.pt.repositioned.general status stable.respiratory status stable.no additional requests@this hour.to f/u re;pain medication efficacy per pain mgx protocol.call light/telephone w/in the pt's reach.
--- NOTE | 2018-02-05 07:20 | NUR ---
OPENING NOTE Patient awake, alert and oriented x4, denies any pain at this time. Breathing even and unlabored, patient on room air. IV site patent and intact. Patient noted with splint on the right leg. Safety and fall precautions in place, bed is in lowest position and locked, side rails up x2, call light within reach, will continue to monitor.
[2018-02-05 07:45] VITALS: BP_SYST 146
[2018-02-05] MEDS: LevALBUTEROL HCL 1.25 MG/0.5 ML *CONC.* VIAL.NEB (XOPENEX CONC.) INH SCH ×2 (07:49→15:48)
[2018-02-05] MEDS: MUPIROCIN 2% TOPICAL OINTMENT 22 GM TP SCH (09:00)
[2018-02-05 09:18] VITALS: BP_SYST 110
[2018-02-05] MEDS: OXYBUTYNIN CHLORIDE 5 MG TABLET PO SCH (09:50)
[2018-02-05] MEDS: GABAPENTIN 100 MG CAPSULE PO SCH ×2 (09:50→14:18)
[2018-02-05] MEDS: FUROSEMIDE 20 MG TABLET PO SCH (09:51)
[2018-02-05] MEDS: glipiZIDE XL 5 MG TAB ( GLUCOTROL XL) PO SCH (09:51)
[2018-02-05] MEDS: DOCUSATE SODIUM 100 MG CAPSULE PO SCH (09:52)
[2018-02-05] MEDS: FENOFIBRATE NANOCRYSTALLIZED 48 MG TABLET (TRICOR) PO SCH (09:52)
[2018-02-05] MEDS: CITALOPRAM HYDROBROMIDE 20 MG TABLET PO SCH (09:52)
[2018-02-05] MEDS: FLUTICASONE PROPIONATE 50 mCg/SPRAY 16 GM NS SCH (09:53)
[2018-02-05] MEDS: NYSTATIN 30 GM TOPICAL CREAM TP SCH (09:53)
[2018-02-05] MEDS: ENOXAPARIN SODIUM 40 MG/0.4 ML SYRINGE SUBCUT SCH (09:55)
--- NOTE | 2018-02-05 10:00 | NUR ---
ROUNDS Pt resting quietly in bed with no s/s resp distress, c/o pain to RLE-will give due pain medication per pain scale. Pt repositioned in bed with pillow support and right heel elevated. Call light within reach.
[2018-02-05] MEDS: INSULIN Aspart Prota/Aspar MIX 70-30, 100 UNITS/ML, 10 ML VIAL SUBCUT SCH ×2 (10:02→17:27)
[2018-02-05 11:19] VITALS: BP_SYST 146
[2018-02-05] MEDS: INSULIN REGULAR, HUMAN 100 UNITS/ML, 10 ML VIAL (novoLIN R) SUBCUT PRN ×2 (11:35→17:28)
--- NOTE | 2018-02-05 12:20 | NUR ---
DC Planning: Received bed assignment from Tl/Sarbjit Kinney , room # 1214B, bed available after 1500, RN to report# [phone] [id number]. ONI Jasso/ONI kay/Coleen made aware. Fang vasquez made aware.
--- NOTE | 2018-02-05 14:25 | NUR ---
PAIN/ROUNDS Patient is awake, resting comfortably in bed, no respiratory distress noted. Patient reports 8/10 sharp pain on the right foot, medicated with IVP Dilaudid PRN as ordered. IV site patent and intact. Safety and fall precautions in place, bed is in lowest position and locked, bed alarm on, side rails up x2, call light within reach, will continue to monitor.
[2018-02-05 14:40] VITALS: BP_SYST 146
--- NOTE | 2018-02-05 15:15 | NUR ---
Discharge Planning: DCP arranged transportation with [facility] ([phone]) 5:30 P/U, nurse to nurse [phone], pt packet taken to nurse station.
--- NOTE | 2018-02-05 16:15 | NUR ---
REPORT CALLED TO ELKIN JEAN Report given to ONI Mark at this time. All questions answered.
[2018-02-05 16:40] VITALS: BP_SYST 102
--- NOTE | 2018-02-05 18:12 | NUR ---
PT TRANSFERRED Report given to Deedee BUNN at [facility]. Transfer packet with Transfer Orders and Medication Reconciliation form given to EMT with report. Exitcare explained and provided. [facility] ID band removed, replaced with ID band with pt's name and . IV catheter removed, intact and dressing applied, no active bleeding. All belongings sent with patient. Patient left floor via gurney escorted by EMT in no distress.
== END 2018-02-05 18:12 | DRG 563 ==
LOC: SED 00:18 → SMU 01:54
PROVIDERS: ADMIT Family Medicine; ATTEND Family Medicine
DX: S82.64XA Nondisplaced fracture of lateral malleolus of right fibula, initial encounter for closed fracture (principal); E46 Unspecified protein-calorie malnutrition; Z68.42 Body mass index [BMI] 45.0-49.9, adult; E11.40 Type 2 diabetes mellitus with diabetic neuropathy, unspecified; F32.9 Major depressive disorder, single episode, unspecified; I12.9 Hypertensive chronic kidney disease with stage 1 through stage 4 chronic kidney disease, or unspecified chronic kidney disease; N31.9 Neuromuscular dysfunction of bladder, unspecified; W18.39XA Other fall on same level, initial encounter; J45.909 Unspecified asthma, uncomplicated; E11.22 Type 2 diabetes mellitus with diabetic chronic kidney disease; E66.9 Obesity, unspecified; E03.9 Hypothyroidism, unspecified; F41.9 Anxiety disorder, unspecified; E78.00 Pure hypercholesterolemia, unspecified; Z79.4 Long term (current) use of insulin; Z79.84 Long term (current) use of oral hypoglycemic drugs; Z79.899 Other long term (current) drug therapy; Z90.49 Acquired absence of other specified parts of digestive tract; Y93.89 Activity, other specified; Y92.89 Other specified places as the place of occurrence of the external cause; Y99.8 Other external cause status
CPT/HCPCS: 36415; 80053; 81000-TC; 82962; 85025; 85610-TC; 85730-TC; 87081; 87086; 87186-TC; 94640; 94760; 96361; 96374; 96375; 96376; 97110-GP; 97530-GP; 99285; J0696; J1170; J1200; J1650; J1815; J2270; J2405; J7060; J7612

== ENCOUNTER 2018-04-10 19:56 | Inpatient (IN) | payer OTHER, MEDICAID ==
[~2018-04-10] VITALS: Ht 154.9 cm; Wt 103.9 kg
[2018-04-10 19:56] VITALS: BP_SYST 145
[~2018-04-10 19:56] MED LIST: ALEN70TA27 PO; BACTROBAN TP; BETA45CR3 TP; CLOB50SO2 TP; ESCI10TA PO; FENO48TA4 PO; FLUT16SP16 NS; FURO-150 PO; GABA-529 PO; GLIP-214 PO; GLUC1VIA4 IJ; IBUP-1969 PO; INSNLG7030 SUBCUT; LEVO-100 PO; LEVOCETRIZINE PO; LIP10 PO; LORA-259 PO; MIRT30TA7 PO; NYSCR30 TP; OXYB5TAB11 PO; SSREG SUBCUT; TERC45CR3 VG; TRAM1TAB33 PO
--- NOTE | 2018-04-10 19:58 | NUR ---
Placed in room 3. Placed on teletypesetter monitor, blood pressure machine and pulse oximeter. To gown for exam. Side rails up.
[2018-04-10] MEDS ORDERED: NACL 0.9% 1,000 ML IV ONE (20:00)
--- NOTE | 2018-04-10 20:00 | NUR ---
Pt came in with fever of 102 noted at [facility]. Tylenol was given. Pt is from [facility]. Pt in bed, alert and orientated, but slow to process. In ED Pt has Temp of 99.6. BP 121/58. No other c/o noted by Pt.
--- NOTE | 2018-04-10 20:04 | NUR ---
Dr. Carreon at bedside examining Pt.
--- NOTE | 2018-04-10 20:27 | NUR ---
# 22 gauge angiocath placed to RT AC. Use of asceptic technique. Opsite placed over site. Blood return noted. Blood for lab drawn from site. Flushed with 10 cc of normal saline. No evidence of infiltration noted. Patient tolerated well.
--- NOTE | 2018-04-10 20:37 | NUR ---
Radiology at bedside for xray
[2018-04-10 20:39] LABS: HEMATOCRIT 47.1 % (36-48); HEMOGLOBIN 15.7 g/dL (12.0-16.0); MEAN CORPUSCULAR HEMOGLOBIN 26 pg (27-31); MEAN CORPUSCULAR HGB CONC 33 % (32-36); MEAN CORPUSCULAR VOLUME 79 fL (79.0-98.0); NEUTROPHILS % (AUTO) 87.9 % (40.0-70.0); PLATELET COUNT (AUTO) 259 K/uL (130-430); RED BLOOD CELL COUNT(AUTO) 5.97 MIL/uL (4.2-6.2); RED CELL DISTRIBUTION WIDTH 16.1 % (9.0-15.0)
[2018-04-10 20:40] LABS: BASOPHILS # (AUTO) 0.1 K/uL (0.0-0.2); BASOPHILS % (AUTO) 0.6 % (0.0-2.0); LYMPHOCYTES # (AUTO) 1.1 K/uL (1.0-5.5); LYMPHOCYTES % (AUTO) 7.8 % (20.5-51.5); MONOCYTES # (AUTO) 0.5 K/uL (0.0-1.0); MONOCYTES % (AUTO) 3.7 % (1.7-9.3); NEUTROPHILS # (AUTO) 12.3 K/uL (1.8-7.7)
[2018-04-10 20:47] LABS: CALCIUM 9.8 mg/dL (8.4-11.0); CREATININE 1.56 mg/dL (0.55-1.30); POTASSIUM 4.3 mmol/L (3.5-5.1)
[2018-04-10 20:50] LABS: PROTHROMBIN TIME 9.9 SECS (9.5-12.5)
[2018-04-10 21:03] LABS: ALBUMIN 3.7 g/dL (3.4-4.8); TOTAL BILIRUBIN 0.5 mg/dL (0.0-1.0)
[2018-04-10] MEDS ORDERED: PIPERACILLIN/TAZO 3.375 GM in NS 50 ML IV ONE (21:15)
[2018-04-10 21:18] LABS: BILIRUBIN,URINE NEGATIVE (NEGATIVE); BLOOD, URINE 1+ (NEGATIVE); CLARITY/URINE CLEAR (CLEAR); COLOR,URINE YELLOW (YELLOW); GLUCOSE,URINE 3+ (NEGATIVE); KETONES,URINE TRACE (NEGATIVE); LEUKOCYTE ESTERASE ,URINE NEGATIVE (NEGATIVE); NITRITE, URINE POSITIVE (NEGATIVE); PROTEIN URINE 2+ (NEGATIVE); UROBILINOGEN,URINE 0.2 (0.2-1.0)
[2018-04-10 21:33] LABS: BACTERIA,URINE MODERATE /HPF (None Seen); WBC,URINE 20-50 /HPF (0-3)
[2018-04-10] MEDS ORDERED: PIPERACILLIN/TAZOBACTAM 3.375 GM/VIAL (ZOSYN) IV ONE (21:34)
[2018-04-10] MEDS ORDERED: FENO40TA3 PO (22:00)
[2018-04-10] MEDS ORDERED: HEPA500015 SUBCUT (22:00)
[2018-04-10] MEDS ORDERED: LEVO100T9 PO (22:00)
[2018-04-10] MEDS ORDERED: GLIP10TA11 PO (22:00)
[2018-04-10] MEDS ORDERED: TEMA15CA5 PO (22:00)
[2018-04-10] MEDS ORDERED: GABA-531 PO (22:00)
[2018-04-10] MEDS ORDERED: MIRT30TA7 PO (22:00)
[2018-04-10] MEDS ORDERED: METH500T PO (22:00)
[2018-04-10] MEDS ORDERED: BUPR1PAT2 TP (22:00)
--- NOTE | 2018-04-10 22:02 | NUR ---
Medication reconciliation completed with information provided by facility. Any prior medication reconciliation on file was reviewed and corrected.
--- NOTE | 2018-04-10 22:05 | NUR ---
Patient will be admitted to care of Dr. Burleson. Admitted to Med-surg unit. Will go to room 101 B. Belongings list completed. Summary report printed. Report will be given at bedside.
--- NOTE | 2018-04-10 22:26 | NUR ---
ADMISSION NOTE Received patient from ER via gurney. Patient admitted with diagnosis of UTI, Hyperglycemia. Patient is awake, alert, oriented X 1. Patient oriented to hospital room, call light, toileting, pain management and safety-teach back done. Patient informed that ONI Laughlin will be primary nurse and that their room number is 101B. Personal belongings checked and Belongings List documented. Call light within reach.
[2018-04-10 22:30] VITALS: BP_SYST 103; BP_SYST 104
--- NOTE | 2018-04-10 22:30 | NUR ---
Late entry IVPB completed infusion prior to admission
[2018-04-10 22:46] VITALS: BP_SYST 172
[2018-04-10] MEDS ORDERED: KCL 20 mEq in 100 mL (PREMIX) 100 ML IV ONE (23:37)
[2018-04-10] MEDS: POTASSIUM CHLORIDE 10 MEQ in 0.45% NACL 1,000 ML IV SCH (23:50)
[2018-04-11] VITALS (8 sets, daily range): BP systolic 102–172
--- NOTE | 2018-04-11 01:30 | NUR ---
SPOKE TO DR. BURLESON Spoke to Dr. Burleson over the phone. Informed him about pt's blood sugar of 374mg/dl and repeat lactic acid of 2.1mmol/L and heart rate at 112bpm. Dr. Burleson ordered Maxipime 1G IV twice a day and one dose tonight, he ordered Fingerstick stick sliding scale ACHS and Regular Insulin. Dr. Burleson asked about pt's home meds and read back all home meds to him. Dr. Burleson said to continue all home meds. Read back all orders to Dr. Burleson and will carry out.
[2018-04-11] MEDS ORDERED: CEFEPIME 1 GM/VIAL (MAXIPIME) ONE (02:04)
[2018-04-11] MEDS: CEFEPIME 1 GM in D5W 50 ML IV SCH ×3 (02:06→20:38)
--- NOTE | 2018-04-11 03:10 | NUR ---
RESTING Pt is resting in bed with both eyes closed, with visible chest rise and fall with unlabored breathing noted. JET PIERCER OPERATOR Cami at bedside. IVF infusing well. No complains of pain or discomfort. No signs of acute distress noted. Safety precautions in place with 3 side rails up, bed alarm on, locked and at lowest level. Call light with pt. Will continue to monitor.
--- NOTE | 2018-04-11 04:45 | NUR ---
ROUNDS Pt is awake, alert and lying in bed. Vital signs taken and recorded. No complains of pain or discomfort. No signs of acute distress or SOB noted. Safety precautions in place and call light with pt. Will continue to monitor.
[2018-04-11] MEDS: HEPARIN SODIUM,PORCINE 5000 UNITS/ML VIAL SUBCUT SCH ×3 (05:29→21:35)
[2018-04-11] MEDS: INSULIN REGULAR, HUMAN 100 UNITS/ML, 10 ML VIAL (novoLIN R) SUBCUT PRN ×4 (06:27→20:35)
--- NOTE | 2018-04-11 06:27 | NUR ---
HIGH BLOOD SUGAR Blood sugar is 482mg/dl. 12 units Regular insulin given as ordered. Will page Dr. Burleson.
--- NOTE | 2018-04-11 07:01 | NUR ---
CLOSING NOTES Pt is resting in bed with both eyes closed, with visible chest rise and fall with unlabored breathing noted. IVF infusing well. No complains of pain or discomfort. No signs of acute distress or SOB noted. All needs attended throughout the shift. Safety precautions maintained and call light with pt. Will endorse to day shift nurse.
--- NOTE | 2018-04-11 07:31 | NUR ---
opening note pt awake, and drowsy, no distress noted, pt reoriented to vianney light use- visibly within reach, bed alarm in place with bed in the lowest position.
[2018-04-11] MEDS: POTASSIUM CHLORIDE 10 MEQ in 0.45% NACL 1,000 ML IV SCH ×2 (07:48→17:47)
[2018-04-11] MEDS: FENOFIBRATE NANOCRYSTALLIZED 48 MG TABLET (TRICOR) PO SCH (08:31)
[2018-04-11] MEDS: METHOCARBAMOL 500 MG TABLET PO SCH ×4 (08:31→21:00)
[2018-04-11] MEDS: GABAPENTIN 300 MG CAPSULE PO SCH ×2 (08:31→21:00)
[2018-04-11] MEDS: LEVOTHYROXINE SODIUM 0.1 MG TABLET PO SCH (08:31)
--- NOTE | 2018-04-11 08:36 | NUR ---
AM MEDS MORNING MEDS GIVEN, PT TOLERATED WELL, NO DISTRESS NOTED, SAFETY MAINTAINED.
[2018-04-11] MEDS ORDERED: FENOFIBRATE 40 MG PO SCH (09:00)
--- NOTE | 2018-04-11 10:43 | NUR ---
Nutrition Update Sahil Scale 16 noted. Pt admitted for UTI. Diet: [facility] BMI: 43.5 kg/m2 RD to follow per nutrition care standards.
--- NOTE | 2018-04-11 11:53 | NUR ---
SPOKE WITH DR LIDA GRUBER MADE AWARE OF PTS BLOOD SUGAR 433- 12 UNITS COVERAGE GIVEN, NO OTHER ORDERS GIVEN
--- NOTE | 2018-04-11 14:04 | NUR ---
PT IS VERY LETHARGIC, WAS ABLE TO FEED HER SOME FRUIT. VITALS STABLE AT THIS TIME.
--- NOTE | 2018-04-11 17:56 | NUR ---
FED PT, BUT HAS LOW APPETITE, GLUCATROL AND ROBAXIN GIVEN WITH MEAL, NO DISTRESS NOTED.
--- NOTE | 2018-04-11 19:00 | NUR ---
change of shift.pt.presents lethargic affect;pt.arousable but incapable to maintain awaken status.pt.presents iv access;located rt.antecubital.iv fluids infusing.pt.presents general status stable.respiratory status stable@room air.call light/telephone placed w/in the reach of the pt.
--- NOTE | 2018-04-11 20:00 | NUR ---
pt.assessed.v/s assessed;values w/in normal limits.pt.presents lethargic affect;calm.pt.capable to arouse but incapable to maintain awaken status.pt.assessed for cleanliness.pt.repositioned.iv fluids infusing.call light/telephone placed w/in the reach of the pt.
--- NOTE | 2018-04-11 20:17 | NUR ---
Paged Dr. Burleson to his pager.
--- NOTE | 2018-04-11 20:30 | NUR ---
lab conveyed to me that the b/cx;04/10/18:+aerobic bottle presents;gram-rods. paged.i conveyed to the b/cx results: presented no orders.i assessed the blood glucose;value;359mg/dl.
[2018-04-11] MEDS: TEMAZEPAM 15 MG CAPSULE PO SCH (21:00)
[2018-04-11] MEDS: MIRTAZAPINE 15 MG TABLET PO SCH (21:00)
[2018-04-11] MEDS: ATORVASTATIN 10 MG TABLET PO SCH (21:00)
--- NOTE | 2018-04-11 21:00 | NUR ---
i attempted to administer the 2100p medication;po.pt.presents lethargic status.pt.arousable but unable to maintain awaken status. i have administered the maxipime;abx;ivpb the 2200p heparin;5ku sq dose. Addendum: 04/12/18 at 0351 by Gage Avila RN i have administered regular insulin;10units;per the sliding scale.
--- NOTE | 2018-04-11 21:25 | NUR ---
Paged Dr. Burleson to his pager.
--- NOTE | 2018-04-11 21:30 | NUR ---
paged.i have conveyed to the preliminary results of the ct-scan;head. provided no orders.
--- NOTE | 2018-04-11 22:00 | NUR ---
pt.assessed.pt.assessed for cleanliness.pt.cleaned.i have located denuded skin x2 sites;sacrum;rt/lt buttocks.i have photographed the denuded skin sites;i have cleanse and applied opti-foam dsg.pt.repositioned.pt,.remains lethargic;capable to arouse pt.unable to maintain awake status.to continue pt.loc assessment.call light/telephone placed w/in the reach of the pt.
--- NOTE | 2018-04-11 22:17 | NUR ---
CONSULT: CONSULT CALLED FOR Yoly YEPEZ I SPOKE WITH NANCY CRYSTAL REASON FOR CONSULT: CONFUSION REQUESTING CONSULT: DR. HILTON SECURITY MANAGER PHONE NUMBER: [phone]
--- NOTE | 2018-04-12 | NUR ---
pt.assessed.v/s assessed.pt.presents quiescent affect;calm,somnolent.pt.assessed for cleanliness.pt.repositioned.iv fluids infusing.general; status stable.respiratory status stable.call light/telephone placed w/in the reach of the pt.
[2018-04-12 00:30] VITALS: BP_SYST 110
--- NOTE | 2018-04-12 02:00 | NUR ---
pt.assessed.pt.assessed for cleanliness.pt.repositioned.iv fluids infusing.general status stable.respiratory status stable. call light/telephone placed w/in the reach of the pt.
[2018-04-12] MEDS: POTASSIUM CHLORIDE 10 MEQ in 0.45% NACL 1,000 ML IV SCH ×3 (03:54→15:53)
--- NOTE | 2018-04-12 04:00 | NUR ---
pt.assessed.pt.presents quiescent affect;calm,somnolent.pt.arousable but lethargic;pt.responding to simple q's appropriate. pt.assessed for cleanliness.pt.repositioned.iv fluids infusing.call light/telephone w/in the reach of the pt.
[2018-04-12] MEDS: INSULIN REGULAR, HUMAN 100 UNITS/ML, 10 ML VIAL (novoLIN R) SUBCUT PRN ×5 (05:53→21:04)
[2018-04-12] MEDS: HEPARIN SODIUM,PORCINE 5000 UNITS/ML VIAL SUBCUT SCH ×2 (05:54→13:12)
--- NOTE | 2018-04-12 06:00 | NUR ---
pt.assessed.pt.presents quiescent affect;clam,pt.awake;alert.pt.assessed for cleanliness;pt.cleaned.pt.had requested orange juice.i have provided x3 cups per the pt's requests.i have assessed the blood glucose;value;396mg/dl.i have administered 10-units;regular insulin.no co pain,nausea.pt.repositioned.general status stable.respiratory status stable.call light/telephone placed w/in the reach of the pt.
[2018-04-12 07:32] LABS: BASOPHILS % (AUTO) 0.5 % (0.0-2.0); EOSINOPHILS % (AUTO) 0.2 % (0.0-4.0); HEMATOCRIT 41.2 % (36-48); HEMOGLOBIN 13.3 g/dL (12.0-16.0); LYMPHOCYTES # (AUTO) 1.3 K/uL (1.0-5.5); LYMPHOCYTES % (AUTO) 13.1 % (20.5-51.5); MEAN CORPUSCULAR HEMOGLOBIN 25 pg (27-31); MEAN CORPUSCULAR HGB CONC 32 % (32-36); MEAN CORPUSCULAR VOLUME 79 fL (79.0-98.0); MONOCYTES # (AUTO) 0.6 K/uL (0.0-1.0); MONOCYTES % (AUTO) 6.1 % (1.7-9.3); NEUTROPHILS # (AUTO) 7.8 K/uL (1.8-7.7); PLATELET COUNT (AUTO) 186 K/uL (130-430); RED BLOOD CELL COUNT(AUTO) 5.23 MIL/uL (4.2-6.2); RED CELL DISTRIBUTION WIDTH 14.8 % (9.0-15.0); WHITE BLOOD COUNT (AUTO) 9.7 K/uL (4.8-10.8)
[2018-04-12 07:44] LABS: CREATININE 1.2 mg/dL (0.55-1.30); POTASSIUM 4.4 mmol/L (3.5-5.1)
--- NOTE | 2018-04-12 08:00 | NUR ---
OPENING NOTE: RECEIVED REPORT FROM NIGHT NURSE AT BEDSIDE. PATENT IS RESTING COMFORTABLY IN BED. NO S/S OF DISTRESS OR SOB. PATIENT IS AWAKE AND ALERT. IV IS PATENT AND INFUSING. PATIENT CLEANED UP WITH ASSISTANCE FROM STRESS ENGINEER. VITAL SIGNS UPDATED IN FLOWCHART. CALL LIGHT IN REACH, BED IN LOWEST POSITION, AND WILL CONTINUE TO MONITOR.
[2018-04-12 08:03] VITALS: BP_SYST 124
[2018-04-12 08:14] LABS: PHOSPHORUS 2.1 mg/dL (2.7-4.5)
[2018-04-12] MEDS: CEFEPIME 1 GM in D5W 50 ML IV SCH ×2 (09:06→20:56)
[2018-04-12] MEDS: METHOCARBAMOL 500 MG TABLET PO SCH ×4 (09:07→20:57)
[2018-04-12] MEDS: LEVOTHYROXINE SODIUM 0.1 MG TABLET PO SCH (09:07)
[2018-04-12] MEDS: FENOFIBRATE NANOCRYSTALLIZED 48 MG TABLET (TRICOR) PO SCH (09:07)
[2018-04-12] MEDS: GABAPENTIN 300 MG CAPSULE PO SCH ×2 (09:07→20:56)
--- NOTE | 2018-04-12 10:00 | NUR ---
RN ROUNDS PATIENT IS SLEEPING COMFORTABLY IN BED. NO S/S OF DISTRESS OR SOB. PATIENT IS ALERT AND ORIENTED. NO NEEDS EXPRESSED AT THE MOMENT. CALL LIGHT IN REACH, BED IN LOWEST POSITION, AND WILL CONTINUE TO MONITOR.
--- NOTE | 2018-04-12 11:23 | NUR ---
Wound Evaluation: Wound Consult ordered for Low Sahil Score. Patient evaluated for a low Sahil score of 13. Patient was awake, alert, oriented, and received in a Anand Bed. Patient needs assist to turn in bed. Skin is fair. Recommend encourage and assist patient as needed with repositioning side to side only every 2 hours with pillow support. Elevate, off-load and float bilateral heels with one pillow lengthwise under each extremity at all times. Offload pressure areas with pillows for pressure re-distribution. Perform skin care and monitor skin integrity Q shift. Use Hydraguard barrier cream on moisture susceptible areas QID and PRN for soiling. Place patient on a low air-loss mattress. Patient lies with right lower extremity in external rotation, with the lateral foot and lateral malleolus resting on the bed secondary to pain and recent right foot fracture. Skin assessment: 1. Right lateral foot, posterior to malleolus: Chronic wound, present on admission. Wound bed has 100% black eschar. No odor, no drainage. Periwound intact. Wound measures 2.1 cm x 1.0 cm. 2. Right lateral foot, superior and anterior to wound 1: Chronic wound, present on admission. Wound bed has 100% black eschar. No odor, no drainage. Periwound intact. Wound measures 1.5 cm x 0.3 cm. Recommend: Cover sites with foam dressing. Elevate extremity with a pillow under the entire foot and calf for support. 3. Right medial malleolus, superior wound: Chronic wound, present on admission. Wound bed has 100% black eschar. No odor, no drainage. Periwound intact. Wound measures 2.5 cm x 1.5 cm. 4. Right medial malleolus, inferior wound: Chronic wound, present on admission. Wound bed has 100% black eschar. No odor, no drainage. Periwound intact. Wound measures 2.5 cm x 1.5 cm. Recommend: No dressing needed. Continue to monitor sites for worsening condition. Contact wound care nurse if any of the sites open or drain. 5. Right great toe, medial aspect: Open bulla, present on admission. No odor, no drainage. Periwound intact. Bulla tissue is flat, but approximated, and measures 1.7 cm x 1.6 cm. Recommend: Wounds below with normal saline. Gently pat dry. Put sure prep onto periwound. Cover with foam dressing. Perform wound care daily, and as needed for dressing soiling or dislodgment. 6. Left buttock: Dry scab, present on admission. Scab has 100% black scab tissue. No odor, no drainage. Periwound intact. Scab measures 1.5 cm x 0.6 cm. 7. Buttocks: Blanchable erythema from IAD, present on admission. Recommend: Cleanse involved areas with mild soap and water. Pat dry. Apply Hydraguard barrier cream to involved area. Perform site care 4 times a day, and as needed for soiling. Will continue to follow as a Sahil.
[2018-04-12 11:24] LABS: NEUTROPHILS % (AUTO) 80.1 % (40.0-70.0)
[2018-04-12 11:27] VITALS: BP_SYST 105
--- NOTE | 2018-04-12 12:15 | NUR ---
CARE ENDORSED TO MEAGAN BUNN
--- NOTE | 2018-04-12 12:20 | NUR ---
REPORT WAS TAKEN FROM NURSE RAMIREZ. PATIENT SITTING IN BED FINISHING LUNCH WITH NO SIGNS OF DISTRESS. PATIENT ON ROOM AIR. IV FLUIDS INFUSING. DRESSINGS ARE DRY AND INTACT. PATIENT EDUCATED ON HOW TO USE CALL LIGHT. PATIENT VERBALIZED UNDERSTANDING. ALL NEEDS MET. WILL CONTINUE TO MONITOR.
--- NOTE | 2018-04-12 13:21 | NUR ---
NOTE: GAVE PATIENT SCHEDULED MEDICATIONS. PATIENT SWALLOWED WITH OUT DIFFICULTIES. PATIENT ENCOURAGED TO TURN EVERY 2 HOURS. PATIENT SAID SHE CAN BUT WILL CALL US IF SHE NEEDS HELP. CALL LIGHT IS IN REACH AND BED ALARM IS ON. WILL CONTINUE TO MONITOR.
[2018-04-12 15:23] VITALS: BP_SYST 116
--- NOTE | 2018-04-12 15:31 | NUR ---
BLOOD CULTURE: LAB CALLED AND SAID BLOOD CULTURE CAME BACK AND SHOWED GRAM NEGATIVE RODS. DR CHRISTIAN.
--- NOTE | 2018-04-12 15:46 | NUR ---
DR HILTON CALLED BACK: SAID THAT HE IS AWARE OF BLOOD CULTURE RESULTS. NO CHANGE IN ORDERS. Addendum: 04/12/18 at 1549 by Joan Armstrong RN LET KNOW THAT HE HAS LOVENOX AND HEPARIN ORDERED. SAID HE WOULD DC HEPARIN.
--- NOTE | 2018-04-12 16:09 | NUR ---
NOTE: PATIENT WAS CLEANED AND REPOSITIONED FOR COMFORT. FLUIDS ARE INFUSING. PATIENT SAID SHE GETS BURSTS OF PAIN IN ANKLE BUT DID NOT WANT ANY PAIN MEDICATION. ALL NEEDS MET. CALL LIGHT IS IN REACH AND BED ALARM IS ON. WILL CONTINUE TO MONITOR.
--- NOTE | 2018-04-12 16:25 | NUR ---
CONSULT REASON FOR CONSULT: DEPRESSION PERSON I SPOKE WITH: TIRSO CONSULTING PHYSICIAN: DR. ZAFAR VOCATIONAL GUIDANCE COUNSELOR PHONE NUMBER: [phone] ORDERING PHYSICIAN: DR. HILTON
--- NOTE | 2018-04-12 16:36 | NUR ---
Dietitian Recommendations *Recommend CHO diet, Glucerna BID (ONS provides an additional 440 kcal, 20 g PRO, and 52 g CHO LP, RD Please refer to Nutrition Assessment for details.
--- NOTE | 2018-04-12 17:29 | NUR ---
BLOOD SUGAR: TOOK PATIENT'S SUGAR AND WAS 304. INSULIN GIVEN TO COVER. GAVE PATIENT SCHEDULED MEDICATIONS. PATIENT TOLERATED WELL. PATIENT HAS NO COMPLAINTS OF DISTRESS. ALL NEEDS MET. CALL LIGHT IS IN REACH. BED ALARM IS ON. WILL CONTINUE TO MONITOR.
--- NOTE | 2018-04-12 18:22 | NUR ---
CLOSING NOTE: PATIENT SITTING IN BED WITH NO SIGNS OF DISTRESS. PATIENT ALMOST FINISHED EATING DINNER. PATIENT HAS NO FURTHER REQUESTS. PATIENT ON ROOM AIR. IV FLUIDS INFUSING. BED ALARM IS ON AND CALL LIGHT IS IN REACH. WILL CONTINUE TO MONITOR AND GIVE REPORT TO NET APPLICATIONS DEVELOPER NURSE.
--- NOTE | 2018-04-12 19:10 | NUR ---
Opening notes Received report. Patient resting in bed watching TV. No signs of distress noted. Breathing is even and unlabored. IV is patent and intact infusing fluids. No needs at this moment. Call light is with the patient. Safety precautions in place.
[2018-04-12 20:00] VITALS: BP_SYST 122
[2018-04-12] MEDS: ATORVASTATIN 10 MG TABLET PO SCH (20:56)
[2018-04-12] MEDS: MIRTAZAPINE 15 MG TABLET PO SCH (20:57)
[2018-04-12] MEDS: TEMAZEPAM 15 MG CAPSULE PO SCH (20:57)
[2018-04-12] MEDS: ENOXAPARIN SODIUM 40 MG/0.4 ML SYRINGE SUBCUT SCH (21:05)
--- NOTE | 2018-04-12 21:05 | NUR ---
Medications Scheduled medications given at this time. Accucheck 337. Gave insulin per sliding scale. Educated the action and side effects of medications. Patient verbalized understanding and tolerated well. No signs of allergic reaction noted.
--- NOTE | 2018-04-12 23:22 | NUR ---
RN rounds Patient is asleep at this time. No signs of distress noted. Breathing is even and unlabored. IVF infusing well. Call light is with the patient. Safety precautions in place.
[2018-04-13 00:22] VITALS: BP_SYST 132
--- NOTE | 2018-04-13 01:40 | NUR ---
RN rounds Patient sleeping. No signs of distress noted. Breathing is even and unlabored. Call light is with the patient. Safety precautions in place.
--- NOTE | 2018-04-13 03:31 | NUR ---
RN rounds Patient asleep in bed. No signs of distress noted. Breathing is even and unlabored. Call light with patient. Safety precautions in place.
--- NOTE | 2018-04-13 05:30 | NUR ---
RN rounds Provided patient with orange juice per patient request. No other needs. Call light with patient Safety precautions in place.
--- NOTE | 2018-04-13 06:33 | NUR ---
Closing notes Patient refused accucheck and glucotrol. Educated the patient the benefits of monitoring blood sugar. Patient refuses. Patient resting comfortably in bed. No signs of distress noted. Breathing is even and unlabored. IV is patent and intact infusing fluids. All needs met throughout the shift. Call light is with patient. Safety precautions in place. Will endorse care to day shift RN.
[2018-04-13 07:51] VITALS: BP_SYST 118
--- NOTE | 2018-04-13 08:00 | NUR ---
Note Pt assisted in sitting up in bed to eat her breakfast. No SOB/resp distress or pain/discomfort noted at this time. IV in right AC intact and patent infusing IVF's at this time. Pt's right foot dressings are intact and dry at this time. Call light within reach at this time.
[2018-04-13] MEDS: LEVOTHYROXINE SODIUM 0.1 MG TABLET PO SCH (08:36)
[2018-04-13] MEDS: FENOFIBRATE NANOCRYSTALLIZED 48 MG TABLET (TRICOR) PO SCH (08:36)
[2018-04-13] MEDS: GABAPENTIN 300 MG CAPSULE PO SCH ×2 (08:36→20:25)
[2018-04-13] MEDS: CEFEPIME 1 GM in D5W 50 ML IV SCH ×2 (08:36→20:27)
[2018-04-13] MEDS ORDERED: NON-FORMULARY MEDICATION (Buprenorphine (Butrans) 1 PATCH) TP SCH (09:00)
[2018-04-13] MEDS: METHOCARBAMOL 500 MG TABLET PO SCH ×4 (09:55→20:25)
--- NOTE | 2018-04-13 10:30 | NUR ---
Note Pt was given bed bath and hygiene care by MARIELY Bunch at this time. Right foot and lateral leg dressings were cleaned and changed at this time as well. Right big toe has open area - no bleeding/drainage noted. Wound bed red, area cleaned and ointment applied, dressed with foam dressing. IVF's infusing well through right AC IV site. No needs noted. Call light within reach.
[2018-04-13] MEDS: INSULIN REGULAR, HUMAN 100 UNITS/ML, 10 ML VIAL (novoLIN R) SUBCUT PRN ×2 (11:57→17:25)
[2018-04-13 12:41] VITALS: BP_SYST 113
--- NOTE | 2018-04-13 12:50 | NUR ---
Note Pt sitting up in bed eating her lunch at this time. No SOB/resp distress or pain/discomfort noted at this time. Pt has been afebrile all shift. No needs noted. Call light within reach.
[2018-04-13] MEDS: POTASSIUM CHLORIDE 10 MEQ in 0.45% NACL 1,000 ML IV SCH ×2 (13:28→19:36)
[2018-04-13 16:30] VITALS: BP_SYST 118
--- NOTE | 2018-04-13 16:30 | NUR ---
Note Pt resting in bed, pt's [id number] called for an update on pt's status. No needs noted at this time. Dressing on right big toe and lateral calf intact and dry at this time. Call light within reach.
--- NOTE | 2018-04-13 18:25 | NUR ---
Note Pt sitting up in bed eating her dinner. No SOB/resp distress or pain/discomfort noted at this time. IV in right AC intact and patent infusing IVF's well. Pt was checked on q1' and PRN all shift for needs and care. Pt's right foot elevated on pillow, dressing on right big toe and lateral calf, intact/dry at this time. No needs noted at this time. Call light within reach.
[2018-04-13 19:47] VITALS: BP_SYST 116
--- NOTE | 2018-04-13 19:47 | NUR ---
INITIAL NOTE AT INITIAL ASSESSMENT, PATIENT IS RESTING IN BED, STABLE, NO SIGNS OF RESPIRATORY DISTRESS. PATIENT SHOWS VERBALIZES NO PAIN. PLAN OF CARE FOR THE EVENING IS COMMUNICATED WITH THE PATIENT. CALL LIGHT- TEACH BACK IS SUCCESSFUL. BED IS LOCKED, ALARMED, AND AT THE LOWEST LEVEL. FALL AND SAFETY PRECAUTIONS WILL IN PLACE THROUGHOUT THE SHIFT.
[2018-04-13] MEDS: MIRTAZAPINE 15 MG TABLET PO SCH (20:25)
[2018-04-13] MEDS: ATORVASTATIN 10 MG TABLET PO SCH (20:25)
[2018-04-13] MEDS: TEMAZEPAM 15 MG CAPSULE PO SCH (20:26)
[2018-04-13] MEDS: ENOXAPARIN SODIUM 40 MG/0.4 ML SYRINGE SUBCUT SCH (20:39)
--- NOTE | 2018-04-13 21:10 | NUR ---
COMMUNICATION WITH DR. LIDA HILTON HAS CALLED BACK AT THIS TIME AND MADE AWARE THAT THE PATIENT VOMITED. HE HAS GIVEN PRN ORDERS FOR NAUSEA AND VOMITING. ORDER WAS READ BACK, VERIFIED, AND ENTERED. Addendum: 04/14/18 at 0037 by Emmanuel Bach RN NOTE INTENDED FOR [id number]
--- NOTE | 2018-04-13 21:45 | NUR ---
PATIENT REFUSES BLOOD SUGAR CHECK AT THIS TIME, PATIENT IS REFUSING HER BLOOD SUGAR CHECK DESPITE EDUCATIONAL EFFORTS. WILL CONTINUE TO ENCOURAGE. SHE VERBALIZES NO PAIN. CALL LIGHT WITHIN REACH. BED IS LOCKED, ALARMED, AND AT THE LOWEST LEVEL.
--- NOTE | 2018-04-13 23:01 | NUR ---
PATIENT VOMITS AT THIS TIME, PATIENT HAS NOTED TO HAVE VOMITTED A SMALL AMOUNT OF EMESIS. IT IS NOTED TO BE YELLOW LIKE THE JELLO GIVEN TO HER DURING THE NIGHT AND SOME BRIGHT RED SPECKS THAT LOOK LIKE CANDY. SHE VERBALIZES NAUSEA STILL. MD WILL BE PAGED IMMEDIATELY FOR PRN NAUSEA AND VOMITING ORDERS. MARIELY PASCUAL IS AT BEDSIDE CLEANING PATIENT AND PROVIDING HER WITH FRESH GOWN AND LINENS. PATIENT IS OTHERWISE STABLE.
--- NOTE | 2018-04-13 23:10 | NUR ---
COMMUNICATION WITH DR. LIDA HILTON HAS CALLED BACK AT THIS TIME AND MADE AWARE THAT THE PATIENT VOMITED. HE HAS GIVEN PRN ORDERS FOR NAUSEA AND VOMITING. ORDER WAS READ BACK, VERIFIED, AND ENTERED.
--- NOTE | 2018-04-13 23:30 | NUR ---
TRANSFER OF CARE AT THIS TIME, PATIENT BEDSIDE REPORT GIVEN TO ONI WU AND ONI CARRASQUILLO. AT THIS TIME, PATIENT IS RESTING IN BED, STABLE, NO SIGNS OF RESPIRATORY DISTRESS. PATIENT VERBALIZES NO PAIN. CALL LIGHT WITHIN REACH. BED IS LOCKED, ALARMED, AND AT THE LOWEST LEVEL.
--- NOTE | 2018-04-13 23:35 | NUR ---
OPENING NOTE RECEIVED CARE OF PT. NO SIGN OF ACUTE DISTRESS NOTED. WILL MONITOR.
--- NOTE | 2018-04-13 23:50 | NUR ---
REFUSING IV PT REFUSING TO HAVE NEW IV PLACED AFTER IV BECAME DISLODGED. PT EDUCATED REGARDING IMPORTANCE OF IV FOR FLUIDS AND MEDICATION ADMINISTRATION. PT CONTINUED TO REFUSE STATING, "I DON'T WANT IT! NO MEANS NO!" WILL ATTEMPT AGAIN IN THE MORNING. WILL MONITOR.
[2018-04-14 00:01] VITALS: BP_SYST 109
--- NOTE | 2018-04-14 01:41 | NUR ---
NURSING NOTE PT RESTING IN BED WITH EYES CLOSED. VISIBLE RISE AND FALL OF CHEST. NO DISTRESS NOTED. SAFETY PRECAUTIONS IN PLACE. WILL MONITOR.
--- NOTE | 2018-04-14 03:31 | NUR ---
NURSING NOTE PT RESTING IN BED WITH EYES SHUT, NO SIGNS OF DISTRESS, VISIBLE SYMMETRICAL RISE AND FALL OF CHEST, SAFETY PRECAUTIONS IN PLACE. WILL MONITOR.
--- NOTE | 2018-04-14 04:32 | NUR ---
BED BATH/LINEN CHANGE COMPLETE BED BATH AND LINEN CHANGE FOR PT BY NURSE PLATING AND POINT ASSEMBLY SUPERVISOR. NO ACUTE DISTRESS NOTED, SAFETY PRECAUTIONS OBSERVED. WILL MONITOR.
--- NOTE | 2018-04-14 05:57 | NUR ---
CONTINUES TO REFUSE IV PT EDUCATED REGARDING IMPORTANCE OF IV FOR FLUIDS AND MEDICATIONS. PT CONTINUES TO REFUSE STATING, "I DON'T WANT TO HEAR ABOUT IT!" WILL MONITOR.
[2018-04-14] MEDS: POTASSIUM CHLORIDE 10 MEQ in 0.45% NACL 1,000 ML IV SCH ×2 (06:09→17:47)
[2018-04-14] MEDS: INSULIN REGULAR, HUMAN 100 UNITS/ML, 10 ML VIAL (novoLIN R) SUBCUT PRN ×3 (06:32→20:22)
--- NOTE | 2018-04-14 06:40 | NUR ---
REFUSING GLIPIZIDE AND INSULIN PT REFUSING TO TAKE GLIPIZIDE AND INSULIN FOR BLOOD SUGAR OF 284. PT EDUCATED ON THE IMPORTANCE OF GLUCOSE CONTROL, PT CONTINUES TO REFUSE STATING, "I DON'T CARE I DON'T WANT ANYTHING, LEAVE ME ALONE!" WILL MONITOR.
--- NOTE | 2018-04-14 06:53 | NUR ---
CLOSING NOTE PT RESTING IN BED, NO ACUTE DISTRESS NOTED. ALL NEEDS MET DURING SHIFT. WILL ENDORSE CARE TO DAY SHIFT RN.
--- NOTE | 2018-04-14 07:06 | NUR ---
GLIPIZIDE Patient took her blood sugar medication after several attempts. Still refusing IV insertion even informing the importance for her nausea medication. Will endorse to RN. Left message to dietary re patient's request for a banana.
--- NOTE | 2018-04-14 07:30 | NUR ---
IV RE-INSERTION: Patient has no IV line after explaining the importance of hydration and IV medication agreed to have IV line. Restarted on left hand G.22. Successful after 1 attempts. Resumed current IVF Will observe for any signs of infiltration.
[2018-04-14 07:40] VITALS: BP_SYST 140
[2018-04-14] MEDS ORDERED: ESCITALOPRAM OXALATE 10 MG TABLET PO SCH (09:00)
[2018-04-14] MEDS: CEFEPIME 1 GM in D5W 50 ML IV SCH ×2 (09:02→20:10)
[2018-04-14] MEDS: METHOCARBAMOL 500 MG TABLET PO SCH ×4 (09:03→20:11)
[2018-04-14] MEDS: ONDANSETRON HCL 4 MG/2 ML VIAL IVP PRN ×3 (09:03→21:22)
[2018-04-14] MEDS: CITALOPRAM HYDROBROMIDE 20 MG TABLET PO SCH (09:03)
[2018-04-14] MEDS: LEVOTHYROXINE SODIUM 0.1 MG TABLET PO SCH (09:03)
[2018-04-14] MEDS: GABAPENTIN 300 MG CAPSULE PO SCH ×2 (09:03→20:11)
[2018-04-14] MEDS: FENOFIBRATE NANOCRYSTALLIZED 48 MG TABLET (TRICOR) PO SCH (09:03)
--- NOTE | 2018-04-14 10:00 | NUR ---
Right ankle with previous fracture kept elevated to pillow, to reduce swelling/discomfort and avoid pressure sore verbalized understanding,
[2018-04-14 11:12] VITALS: BP_SYST 104
--- NOTE | 2018-04-14 11:12 | NUR ---
Patient refused for insulin coverage for blood sugar 384 mg/dl , patient is saying im not getting any better , explained to patient importance of medication insulin to control the blood sugar and still refusing for medication. Addendum: 04/14/18 at 1114 by Yvrose Renteria RN will page admitting doctor Addendum: 04/14/18 at 1151 by Yvrose Renteria RN Dr. Giles informed regarding patient non compliant to medication ,refusal for insulin medication, will come to talk to patient.
--- NOTE | 2018-04-14 13:40 | NUR ---
Rounds/education Patient awake/alert oriented cooperative due meds given and agreed to take it after explanation , again discussed monitoring blood sugar and insulin administration still refused to take medication .
--- NOTE | 2018-04-14 13:45 | NUR ---
Skin care/comfort Perineal care given ,patient incontinent perineal area excoriated feeling skin , wash with soap/water pat/dry denies any pain, no bleeding no discharges, skin cream barrier applied, repositioned, right leg kept elevated to pillow , able to help to turn.
[2018-04-14 14:50] VITALS: BP_SYST 136
--- NOTE | 2018-04-14 15:00 | NUR ---
GI Patient feeling nauseated , denies any headache afebrile , bloo pressure stable , zofran iv push given slowly will monitor.
[2018-04-14 16:19] VITALS: BP_SYST 133
--- NOTE | 2018-04-14 17:15 | NUR ---
Patient has been compliant with medication seen and examined by DR. Giles stress to patient importance of sugar monitoring and medication ,verbalized understanding.
--- NOTE | 2018-04-14 19:31 | NUR ---
OPENING NOTE RECEIVED CARE OF PT. PT LYING IN BED, APPEARS COMFORTABLE. NO SIGNS OF ACUTE DISTRESS. IVF INFUSING ORDERED. PT INSTRUCTED TO CALL FOR ASSISTANCE. SAFETY PRECAUTIONS IN PLACE: BED IN LOWEST POSITION, CALL LIGHT WITH PT, SIDE RAILS UPX2, BED ALARM ON. WILL MONITOR.
[2018-04-14 20:00] VITALS: BP_SYST 115
[2018-04-14] MEDS: ATORVASTATIN 10 MG TABLET PO SCH (20:11)
[2018-04-14] MEDS: TEMAZEPAM 15 MG CAPSULE PO SCH (20:11)
[2018-04-14] MEDS: MIRTAZAPINE 15 MG TABLET PO SCH (20:11)
[2018-04-14] MEDS: ENOXAPARIN SODIUM 40 MG/0.4 ML SYRINGE SUBCUT SCH (20:12)
--- NOTE | 2018-04-14 21:22 | NUR ---
N/V, ZOFRAN ADMINISTERED PT REPORTING NAUSEA, VOMITED SMALL AMOUNT OF YELLOW EMESIS. ZOFRAN 4MG IVP ADMINISTERED. MEDICATION AND POTENTIAL SIDE EFFECTS EXPLAINED. PT VERBALIZED UNDERSTANDING. SAFETY PRECAUTIONS IN PLACE. WILL MONITOR.
--- NOTE | 2018-04-14 23:30 | NUR ---
NURSING NOTE PT RESTING IN BED WITH EYES CLOSED. APPEARS TO BE COMFORTABLE. NO SIGN OF ACUTE DISTRESS. BREATHING IS EVEN AND EFFORTLESS TO ROOM AIR. VISIBLE SYMMETRICAL RISE AND FALL OF CHEST. SAFETY PRECAUTIONS IN PLACE. WILL MONITOR.
[2018-04-15 00:02] VITALS: BP_SYST 144
[2018-04-15] MEDS: POTASSIUM CHLORIDE 10 MEQ in 0.45% NACL 1,000 ML IV SCH ×3 (01:03→20:33)
--- NOTE | 2018-04-15 02:00 | NUR ---
NURSING NOTE PT RESTING IN BED WITH EYES CLOSED. NO SIGN OF ACUTE DISTRESS. VISIBLE SYMMETRICAL RISE AND FALL OF CHEST. IVF INFUSING ORDERED. SAFETY PRECAUTIONS OBSERVED. WILL MONITOR.
[2018-04-15] MEDS: ONDANSETRON HCL 4 MG/2 ML VIAL IVP PRN (03:54)
--- NOTE | 2018-04-15 04:06 | NUR ---
NAUSEA/ZOFRAN ADMINISTERED PT REPORTING NAUSEA, ZOFRAN 4MG IVP ADMINISTERED. HEAD OF BED ELEVATED FOR COMFORT AND SAFETY. WILL MONITOR.
--- NOTE | 2018-04-15 04:45 | NUR ---
COMPLETE LINEN CHANGE PT CHANGED AND COMPLETE LINEN CHANGE DONE. PT INSTRUCTED TO CALL FOR ASSISTANCE. SAFETY PRECAUTIONS IN PLACE. WILL MONITOR.
[2018-04-15] MEDS: INSULIN REGULAR, HUMAN 100 UNITS/ML, 10 ML VIAL (novoLIN R) SUBCUT PRN ×4 (06:04→20:49)
--- NOTE | 2018-04-15 06:44 | NUR ---
CLOSING NOTE ACCUCHECK DONE, 6 UNITS OF REGULAR INSULIN GIVEN FOR A BLOOD SUGAR OF 278 PER SLIDING SCALE. IVF INFUSING ORDERED, NO SIGN OF INFILTRATION AT IV SITE. PT DENIES PAIN AT THIS TIME. PT REPOSITIONED FOR COMFORT. ALL NEEDS MET DURING SHIFT. WILL ENDORSE CARE TO DAY SHIFT.
[2018-04-15 07:15] LABS: CALCIUM 8.1 mg/dL (8.4-11.0); CREATININE 0.93 mg/dL (0.55-1.30); POTASSIUM 4.6 mmol/L (3.5-5.1)
[2018-04-15 07:17] LABS: BASOPHILS # (AUTO) 0.1 K/uL (0.0-0.2); EOSINOPHILS # (AUTO) 0.2 K/uL (0.0-0.4); HEMATOCRIT 42.3 % (36-48); LYMPHOCYTES # (AUTO) 1.9 K/uL (1.0-5.5); NEUTROPHILS # (AUTO) 10.2 K/uL (1.8-7.7); RED CELL DISTRIBUTION WIDTH 14.2 % (9.0-15.0)
[2018-04-15 07:25] LABS: BASOPHILS % (AUTO) 0.7 % (0.0-2.0); EOSINOPHILS % (AUTO) 1.6 % (0.0-4.0); HEMOGLOBIN 13.8 g/dL (12.0-16.0); LYMPHOCYTES % (AUTO) 14.3 % (20.5-51.5); MEAN CORPUSCULAR HEMOGLOBIN 26 pg (27-31); MEAN CORPUSCULAR HGB CONC 33 % (32-36); MEAN CORPUSCULAR VOLUME 78 fL (79.0-98.0); MONOCYTES # (AUTO) 0.8 K/uL (0.0-1.0); MONOCYTES % (AUTO) 5.8 % (1.7-9.3); NEUTROPHILS % (AUTO) 77.6 % (40.0-70.0); PLATELET COUNT (AUTO) 268 K/uL (130-430); RED BLOOD CELL COUNT(AUTO) 5.42 MIL/uL (4.2-6.2); WHITE BLOOD COUNT (AUTO) 13.2 K/uL (4.8-10.8)
--- NOTE | 2018-04-15 07:25 | NUR ---
received report from nite nurse at the bedside. patient still asleep.
--- NOTE | 2018-04-15 08:10 | NUR ---
patient is asleep. vitals signs stable and documented. afebrile. has iv access on the left ac #22 with iv fluids of 1/2 ns with 20kcl meq at 100cc/hr infusing on well. lungs bilaterally diminished at the bases. abdomen soft and non distended. call lights within reach. will continue to monitor patients status. no sob nor acute distress noted.
[2018-04-15 08:24] VITALS: BP_SYST 158
--- NOTE | 2018-04-15 08:44 | NUR ---
patient asleep at this time. verbalized wants more to sleep. call lights within reach.
[2018-04-15] MEDS: METHOCARBAMOL 500 MG TABLET PO SCH ×4 (09:16→20:34)
[2018-04-15] MEDS: CITALOPRAM HYDROBROMIDE 20 MG TABLET PO SCH (09:16)
[2018-04-15] MEDS: CEFEPIME 1 GM in D5W 50 ML IV SCH ×2 (09:16→20:33)
[2018-04-15] MEDS: GABAPENTIN 300 MG CAPSULE PO SCH ×2 (09:16→20:34)
[2018-04-15] MEDS: LEVOTHYROXINE SODIUM 0.1 MG TABLET PO SCH (09:16)
[2018-04-15] MEDS: FENOFIBRATE NANOCRYSTALLIZED 48 MG TABLET (TRICOR) PO SCH (09:17)
--- NOTE | 2018-04-15 09:19 | NUR ---
verbalized i am not sick. i dont want any medication
--- NOTE | 2018-04-15 09:20 | NUR ---
maxipime started at this time.
--- NOTE | 2018-04-15 09:25 | NUR ---
feels nauseated. but refused to have nausea medication.
--- NOTE | 2018-04-15 10:30 | NUR ---
wants hot tea given.
--- NOTE | 2018-04-15 11:00 | NUR ---
josuéo given as requested. made comfortable.
--- NOTE | 2018-04-15 11:42 | NUR ---
bs 263mg/dl. coverage given at the right abdomen. still nauseated. wants hot tea.
[2018-04-15 12:17] VITALS: BP_SYST 117
--- NOTE | 2018-04-15 14:00 | NUR ---
resting comfortably. no sob nor pain noted.
--- NOTE | 2018-04-15 15:00 | NUR ---
refused the schedule po medication at this time.
--- NOTE | 2018-04-15 15:40 | NUR ---
refused to be fixed while in bed.
[2018-04-15 16:05] VITALS: BP_SYST 123
--- NOTE | 2018-04-15 16:30 | NUR ---
dr ramirez came to see the patient and informed that patient refusing p o medication. continue to monitor
--- NOTE | 2018-04-15 16:37 | NUR ---
still nauseated but refused zofran iv
--- NOTE | 2018-04-15 16:38 | NUR ---
all wounds on both feet are dry and intact. no drainage noted.
--- NOTE | 2018-04-15 18:00 | NUR ---
latest bs is 328mg/dl. coverage given.
--- NOTE | 2018-04-15 19:16 | NUR ---
OPENING NOTE RECEIVED CARE OF PT. PT AAOX4, SITTING UP IN BED, NO REPORT OF PAIN. IVF INFUSING ORDERED. PT INSTRUCTED TO CALL FOR ASSISTANCE. SAFETY PRECAUTIONS IN PLACE. WILL MONITOR.
[2018-04-15 20:00] VITALS: BP_SYST 158
[2018-04-15] MEDS: MIRTAZAPINE 15 MG TABLET PO SCH (20:33)
[2018-04-15] MEDS: ATORVASTATIN 10 MG TABLET PO SCH (20:34)
[2018-04-15] MEDS: TEMAZEPAM 15 MG CAPSULE PO SCH (20:34)
[2018-04-15] MEDS: ENOXAPARIN SODIUM 40 MG/0.4 ML SYRINGE SUBCUT SCH (20:39)
--- NOTE | 2018-04-15 20:49 | NUR ---
ACCUCHECK ACCUCHECK DONE, BLOOD SUGAR OF 325, 8 UNITS OF REGULAR INSULIN GIVEN PER SLIDING SCALE. PT EDUCATED REGARDING MEDICATION AND POTENTIAL SIDE EFFECTS. WILL MONITOR.
--- NOTE | 2018-04-15 21:25 | NUR ---
REQUESTING SNACKS SUGAR-FREE JELLO PROVIDED PER PT REQUEST. FAMILY AT BEDSIDE. WILL MONITOR.
--- NOTE | 2018-04-15 22:35 | NUR ---
NURSING NOTE PT RESTING IN BED WITH EYES CLOSED. VISIBLE SYMMETRICAL RISE AND FALL OF CHEST, BREATHING EFFORTLESS TO ROOM AIR. NO SIGN OF DISTRESS. IVF INFUSING ORDERED. SAFETY PRECAUTIONS OBSERVED. WILL MONITOR.
[2018-04-16 00:26] VITALS: BP_SYST 114
[2018-04-16 00:32] VITALS: BP_SYST 108
--- NOTE | 2018-04-16 00:40 | NUR ---
NURSING NOTE PT RESTING IN BED, EYES ARE SHUT. NO SIGNS OF DISTRESS. VISIBLE RISE AND FALL OF CHEST. SAFETY PRECAUTIONS IN PLACE: BED IN LOWEST POSITION, CALL LIGHT WITH PT, SIDE RAILS UP X 2, BED ALARM ON. WILL MONITOR.
--- NOTE | 2018-04-16 02:13 | NUR ---
NURSING NOTE PT RESTING IN BED WITH EYES CLOSED. APPEARS TO BE COMFORTABLE. IVF INFUSING, NO INFILTRATION AT IV SITE. BREATHING UNLABORED TO ROOM AIR. SAFETY PRECAUTIONS OBSERVED. WILL MONITOR.
--- NOTE | 2018-04-16 04:39 | NUR ---
RESTING. PT RESTING IN BED, EYES ARE CLOSED. VISIBLE SYMMETRICAL RISE AND FALL OF CHEST TO ROOM AIR. APPEARS TO BE COMFORTABLE. NO SIGN OF DISTRESS NOTED. SAFETY PRECAUTIONS IN PLACE:BED IN LOWEST POSITION, SIDE RAILS UP X3, CALL LIGHT WITH PT, BED ALARM ON, PERSONAL ITEMS WITHIN REACH. WILL MONITOR.
[2018-04-16] MEDS: POTASSIUM CHLORIDE 10 MEQ in 0.45% NACL 1,000 ML IV SCH (05:56)
[2018-04-16] MEDS: INSULIN REGULAR, HUMAN 100 UNITS/ML, 10 ML VIAL (novoLIN R) SUBCUT PRN ×2 (06:01→21:24)
[2018-04-16 06:23] LABS: BASOPHILS # (AUTO) 0.1 K/uL (0.0-0.2); BASOPHILS % (AUTO) 0.7 % (0.0-2.0); EOSINOPHILS # (AUTO) 0.4 K/uL (0.0-0.4); EOSINOPHILS % (AUTO) 2.4 % (0.0-4.0); HEMATOCRIT 42.9 % (36-48); HEMOGLOBIN 13.5 g/dL (12.0-16.0); LYMPHOCYTES # (AUTO) 2.8 K/uL (1.0-5.5); LYMPHOCYTES % (AUTO) 19.3 % (20.5-51.5); MEAN CORPUSCULAR HEMOGLOBIN 25 pg (27-31); MEAN CORPUSCULAR HGB CONC 32 % (32-36); MEAN CORPUSCULAR VOLUME 78 fL (79.0-98.0); MONOCYTES % (AUTO) 6.8 % (1.7-9.3); NEUTROPHILS # (AUTO) 10.3 K/uL (1.8-7.7); NEUTROPHILS % (AUTO) 70.8 % (40.0-70.0); PLATELET COUNT (AUTO) 298 K/uL (130-430); RED BLOOD CELL COUNT(AUTO) 5.48 MIL/uL (4.2-6.2); RED CELL DISTRIBUTION WIDTH 14.5 % (9.0-15.0); WHITE BLOOD COUNT (AUTO) 14.6 K/uL (4.8-10.8)
--- NOTE | 2018-04-16 06:25 | NUR ---
CLOSING NOTE PT CHANGED AND COMPLETE LINEN CHANGE DONE. PT REPOSITIONED FOR COMFORT. PT DENIES PAIN. IVF INFUSING. ALL NEEDS MET DURING SHIFT. WILL ENDORSE CARE TO DAY SHIFT RN.
[2018-04-16 06:40] LABS: CREATININE 1.03 mg/dL (0.55-1.30); POTASSIUM 4.5 mmol/L (3.5-5.1)
[2018-04-16 08:00] VITALS: BP_SYST 148
--- NOTE | 2018-04-16 08:00 | NUR ---
initial notes rec patient awake alert with hob slightly elevated. ivf infusing well on the r hand. no infiltration noted. r leg elevated on a pillow. toes moving freely and warm to touch. no neuro deficit noted. denies pain at this time. bed to the lowest position and side rails up and locked. call light within reached and knows when to call for assistance.
[2018-04-16] MEDS: METHOCARBAMOL 500 MG TABLET PO SCH ×3 (09:00→21:08)
[2018-04-16] MEDS ORDERED: ALENDRONATE SODIUM 70 MG PO SCH (09:00)
[2018-04-16] MEDS: FENOFIBRATE NANOCRYSTALLIZED 48 MG TABLET (TRICOR) PO SCH (09:51)
[2018-04-16] MEDS: CITALOPRAM HYDROBROMIDE 20 MG TABLET PO SCH (09:51)
[2018-04-16] MEDS: CEFEPIME 1 GM in D5W 50 ML IV SCH ×2 (09:51→21:00)
[2018-04-16] MEDS: GABAPENTIN 300 MG CAPSULE PO SCH ×2 (09:51→21:09)
[2018-04-16] MEDS: LEVOTHYROXINE SODIUM 0.1 MG TABLET PO SCH (09:51)
--- NOTE | 2018-04-16 10:00 | NUR ---
rounds due meds given as ordered. resting quietly at this time. no sob noted.
--- NOTE | 2018-04-16 12:37 | NUR ---
rounds pt was poked for the accucheck but refused to have her blood sugar read. no sob noted.
[2018-04-16 12:39] VITALS: BP_SYST 131
[2018-04-16 20:00] VITALS: BP_SYST 135
--- NOTE | 2018-04-16 20:25 | NUR ---
Opening notes Received report. Patient eating dinner in bed. No signs of distress noted. Breathing is even and unlabored. Denies any pain or discomfort. Vital signs stable. No needs at this moment. Call light with the patient. Safety precautions in place.
[2018-04-16] MEDS: TEMAZEPAM 15 MG CAPSULE PO SCH (21:08)
[2018-04-16] MEDS: MIRTAZAPINE 15 MG TABLET PO SCH (21:09)
[2018-04-16] MEDS: ATORVASTATIN 10 MG TABLET PO SCH (21:09)
--- NOTE | 2018-04-16 21:10 | NUR ---
Meds Scheduled meds given at this time. Educated the action and side effects. Patient verbalized understanding. Accucheck 427. Gave 12 units per sliding scale. Spoke with Dr. Burleson about blood sugar and he ordered an additional 3 units of insulin. Patient tolerated well. No signs of allergic reaction.
[2018-04-16] MEDS: ENOXAPARIN SODIUM 40 MG/0.4 ML SYRINGE SUBCUT SCH (21:26)
--- NOTE | 2018-04-16 22:10 | NUR ---
AMBULANCE TRANSFER Called [facility] ambulance ([phone]) s/w [place]. Requested BLS transfer to [facility]. She gave an ETA of 90 minutes (2330).
[2018-04-16 22:59] VITALS: BP_SYST 143
[2018-04-17 00:01] VITALS: BP_SYST 143
--- NOTE | 2018-04-17 00:15 | NUR ---
D/C Patient EMT given medication reconciliation form and D/C instructions. Exit Care provided. Patient verbalized understanding. MD discussed with patient the results and treatment provided. Patient in stable condition, ID band removed. IV catheter removed, intact and dressing applied, no active bleeding. Patient educated on pain management. All belongings sent with patient. Patient discharged via gurney by [facility] EMT.
[2018-04-17] MEDS ORDERED: CITALOPRAM HYDROBROMIDE 20 MG TABLET PO SCH (09:00)
== END 2018-04-17 00:15 | DRG 871 ==
LOC: SED 19:56 → SMU 21:50
PROVIDERS: ADMIT Family Medicine; ATTEND Family Medicine
DX: A41.9 Sepsis, unspecified organism (principal); G93.41 Metabolic encephalopathy; N39.0 Urinary tract infection, site not specified; F33.2 Major depressive disorder, recurrent severe without psychotic features; Z68.41 Body mass index [BMI] 40.0-44.9, adult; E86.0 Dehydration; E11.9 Type 2 diabetes mellitus without complications; E03.9 Hypothyroidism, unspecified; M19.90 Unspecified osteoarthritis, unspecified site; E66.9 Obesity, unspecified; N18.9 Chronic kidney disease, unspecified; I12.9 Hypertensive chronic kidney disease with stage 1 through stage 4 chronic kidney disease, or unspecified chronic kidney disease; E78.00 Pure hypercholesterolemia, unspecified; F41.9 Anxiety disorder, unspecified; Z91.09 Other allergy status, other than to drugs and biological substances; Z87.81 Personal history of (healed) traumatic fracture
CPT/HCPCS: 36415; 70450-TC; 71045; 80048; 80053; 81000-TC; 82009-TC; 82962; 83605; 83735-TC; 84100-TC; 84443-TC; 84484; 85025; 85610-TC; 85730-TC; 87040-TC; 87081; 87086; 87186-TC; 93005; 96365; 97110-GP; 97530-GP; 99285; J0692; J1644; J1650; J1815; J2405; J2543; J3480; J7060

== ENCOUNTER 2018-05-04 13:23 | Emergency (ER) | payer OTHER, MEDICAID ==
[~2018-05-04] VITALS: Ht 154.9 cm; Wt 106.6 kg
[2018-05-04 13:23] VITALS: BP_SYST 138
[~2018-05-04 13:23] MED LIST changes: -BACTROBAN TP; -BETA45CR3 TP; +BUPR1PAT2 TP; -CLOB50SO2 TP; -ESCI10TA PO; +FENO40TA3 PO; -FLUT16SP16 NS; -FURO-150 PO; -GABA-529 PO; +GABA-531 PO; -GLIP-214 PO; +GLIP10TA11 PO; -GLUC1VIA4 IJ; +HEPA500015 SUBCUT; -IBUP-1969 PO; -INSNLG7030 SUBCUT; -LEVO-100 PO; +LEVO100T9 PO; -LEVOCETRIZINE PO; -LORA-259 PO; +METH500T PO; -NYSCR30 TP; -OXYB5TAB11 PO; -SSREG SUBCUT; +TEMA15CA5 PO; -TERC45CR3 VG; -TRAM1TAB33 PO
--- NOTE | 2018-05-04 13:23 | NUR ---
ABBI CRUZ from [facility] for slipping off the bed x2 today. C/O right foot pain, -defomity. Had surgery on rt foot 3 months ago +open wound medial right ankle and right big toe Placed in hallway bed 1 Addendum: 05/04/18 at 1647 by SDEDSTC Came from [facility], not [facility].
--- NOTE | 2018-05-04 14:57 | NUR ---
ER Dr. Watts at bedside examining patient.
--- NOTE | 2018-05-04 16:07 | NUR ---
recieved phone call from [facility] asking for a referral. [facility] stated "[facility] full and they asked us to ask you for a referral." Explained to staff, we do not give skilled service referrals to fdc facilities from the ED. The patient has to go back to her primary care residence and refered from there.
--- NOTE | 2018-05-04 16:07 | NUR ---
Patient given written and verbal discharge instructions and verbalizes understanding. ER MD discussed with patient the results and treatment provided. Patient in stable condition. ID arm band removed. Rx of Ibuprofen given. Patient educated on pain management and to follow up with PMD. Pain Scale 0/10. Opportunity for questions provided and answered. Medication side effect fact sheet provided.
[2018-05-04 16:08] VITALS: BP_SYST 138
--- NOTE | 2018-05-04 16:10 | NUR ---
spoke Ira from [facility]. who stated "the patient is on a waiver program and we are full, we will take her if you have to but we called [facility] for service transfer." explained referral policy. Ira stated their transport is gone for the day and asked us to arrange transportation. notified head of commission department of possible dumping.
--- NOTE | 2018-05-04 16:40 | NUR ---
REFERED TO [facility].
--- NOTE | 2018-05-04 17:09 | NUR ---
Patient to be transferred to [facility]. Is being transferred due to higher level of care. Receiving facility has accepting physician and available space. ER physician has signed transfer form. Patient or responsible libertarian has agreed to transfer and signed form. Patient belongings inventoried and will be sent with patient. Copy of nursing notes, lab reports, EKG, Physicians Orders and X-rays to be sent with patient. Report called to GULSHAN Da Silva at receiving facility. Receiving [facility] ambulance service has been called for transfer. ETA is 1900
--- NOTE | 2018-05-04 17:35 | NUR ---
TALKED TO CR[facility] FROM [facility] FOR [facility]SPORT, ETA 2HRS.
[2018-05-05] MEDS ORDERED: BETA50GE2 TP (03:09)
[2018-05-05] MEDS ORDERED: BACTROBAN TP (03:09)
[2018-05-05] MEDS ORDERED: TERC45CR3 VG (03:09)
[2018-05-05] MEDS ORDERED: FLO44 INH (03:09)
[2018-05-05] MEDS ORDERED: MYCOLOG15 TP (03:09)
[2018-05-05] MEDS ORDERED: NYST15PO2 TP (03:09)
[2018-05-05] MEDS ORDERED: LORA1TAB PO (03:09)
[2018-05-05] MEDS ORDERED: TRAM-350 PO (03:09)
[2018-05-05] MEDS ORDERED: TRIA1TAB96 PO (03:09)
[2018-05-05] MEDS ORDERED: GLUC1KIT IJ (03:09)
[2018-05-05] MEDS ORDERED: ESCI10TA PO (03:09)
[2018-05-05] MEDS ORDERED: CLOB30CR27 TP (03:09)
[2018-05-05] MEDS ORDERED: LEVO5TAB13 PO (03:09)
[2018-05-05] MEDS ORDERED: GABA-529 PO (03:09)
[2018-05-05] MEDS ORDERED: IBUP-1969 PO (03:09)
[2018-05-05] MEDS ORDERED: OXYB5TAB11 PO (03:09)
[2018-05-05] MEDS ORDERED: FURO-150 PO (03:09)
[2018-05-05] MEDS ORDERED: SSREG SUBCUT ×2 (03:09)
== END 2018-05-04 17:35 | disposition home or self-care (01) ==
LOC: SED 13:23
DX: M25.571 Pain in right ankle and joints of right foot (principal); I12.9 Hypertensive chronic kidney disease with stage 1 through stage 4 chronic kidney disease, or unspecified chronic kidney disease; E11.22 Type 2 diabetes mellitus with diabetic chronic kidney disease; N18.9 Chronic kidney disease, unspecified; E03.9 Hypothyroidism, unspecified; F41.9 Anxiety disorder, unspecified; E78.00 Pure hypercholesterolemia, unspecified; Z91.011 Allergy to milk products; Z79.899 Other long term (current) drug therapy; W06.XXXA Fall from bed, initial encounter; Y93.89 Activity, other specified; Y92.89 Other specified places as the place of occurrence of the external cause; Y99.8 Other external cause status
CPT/HCPCS: 99283; J7030

== ENCOUNTER 2018-05-05 01:48 | Inpatient (IN) | payer OTHER, MEDICAID ==
[~2018-05-05] VITALS: Ht 154.9 cm; Wt 99.8 kg
[2018-05-05 01:48] VITALS: BP_SYST 129
[2018-05-05] MEDS ORDERED: NACL 0.9% 1,000 ML IV ONE (01:56)
[2018-05-05 02:19] LABS: BASOPHILS % (AUTO) 0.9 % (0.0-2.0); EOSINOPHILS % (AUTO) 1.5 % (0.0-4.0); HEMATOCRIT 43.3 % (36-48); HEMOGLOBIN 14.2 g/dL (12.0-16.0); LYMPHOCYTES # (AUTO) 2.4 K/uL (1.0-5.5); LYMPHOCYTES % (AUTO) 25.1 % (20.5-51.5); MEAN CORPUSCULAR HEMOGLOBIN 27 pg (27-31); MEAN CORPUSCULAR HGB CONC 33 % (32-36); MEAN CORPUSCULAR VOLUME 81 fL (79.0-98.0); MONOCYTES % (AUTO) 5.1 % (1.7-9.3); NEUTROPHILS # (AUTO) 6.6 K/uL (1.8-7.7); NEUTROPHILS % (AUTO) 67.4 % (40.0-70.0); PLATELET COUNT (AUTO) 274 K/uL (130-430); RED BLOOD CELL COUNT(AUTO) 5.35 MIL/uL (4.2-6.2); WHITE BLOOD COUNT (AUTO) 9.8 K/uL (4.8-10.8)
[2018-05-05 02:20] LABS: BASOPHILS # (AUTO) 0.1 K/uL (0.0-0.2); EOSINOPHILS # (AUTO) 0.1 K/uL (0.0-0.4); MONOCYTES # (AUTO) 0.5 K/uL (0.0-1.0)
[2018-05-05 02:31] LABS: CALCIUM 8.7 mg/dL (8.4-11.0); CREATININE 1.16 mg/dL (0.55-1.30); POTASSIUM 4.5 mmol/L (3.5-5.1)
[2018-05-05 02:37] LABS: ALBUMIN 3.1 g/dL (3.4-4.8); TOTAL BILIRUBIN 0.4 mg/dL (0.0-1.0)
[2018-05-05] MEDS ORDERED: TRIA1TAB96 PO (03:09)
[2018-05-05] MEDS ORDERED: IBUP-1969 PO (03:09)
[2018-05-05] MEDS ORDERED: FURO-150 PO (03:09)
[2018-05-05] MEDS ORDERED: TERC45CR3 VG (03:09)
[2018-05-05] MEDS ORDERED: FLO44 INH (03:09)
[2018-05-05] MEDS ORDERED: GABA-529 PO (03:09)
[2018-05-05] MEDS ORDERED: TRAM-350 PO (03:09)
[2018-05-05] MEDS ORDERED: BACTROBAN TP (03:09)
[2018-05-05] MEDS ORDERED: GLUC1KIT IJ (03:09)
[2018-05-05] MEDS ORDERED: BETA50GE2 TP (03:09)
[2018-05-05] MEDS ORDERED: MYCOLOG15 TP (03:09)
[2018-05-05] MEDS ORDERED: CLOB30CR27 TP (03:09)
[2018-05-05] MEDS ORDERED: SSREG SUBCUT ×2 (03:09)
[2018-05-05] MEDS ORDERED: NYST15PO2 TP (03:09)
[2018-05-05] MEDS ORDERED: OXYB5TAB11 PO (03:09)
[2018-05-05] MEDS ORDERED: LEVO5TAB13 PO (03:09)
[2018-05-05] MEDS ORDERED: LORA1TAB PO (03:09)
[2018-05-05] MEDS ORDERED: ESCI10TA PO (03:09)
[2018-05-05] MEDS ORDERED: NACL 0.9% 2,000 ML IV ONE (03:30)
[2018-05-05] MEDS ORDERED: INSULIN REGULAR, HUMAN 10 UNITS/0.1 ML INJ IVP ONE (03:30)
[2018-05-05 05:31] LABS: BILIRUBIN,URINE NEGATIVE (NEGATIVE); CLARITY/URINE CLEAR (CLEAR); COLOR,URINE YELLOW (YELLOW); GLUCOSE,URINE TRACE (NEGATIVE); KETONES,URINE TRACE (NEGATIVE); LEUKOCYTE ESTERASE ,URINE NEGATIVE (NEGATIVE); NITRITE, URINE NEGATIVE (NEGATIVE); PH,URINE 6.5 (5.0-8.0); PROTEIN URINE TRACE (NEGATIVE); UROBILINOGEN,URINE 0.2 (0.2-1.0)
[2018-05-05 05:35] LABS: BLOOD, URINE TRACE (NEGATIVE)
[2018-05-05 05:39] LABS: BACTERIA,URINE FEW /HPF (None Seen); WBC,URINE 20-50 /HPF (0-3)
[2018-05-05] MEDS ORDERED: NS IV SCH ×2 (09:15)
[2018-05-05] MEDS ORDERED: NACL IV SCH ×2 (09:15)
[2018-05-05] MEDS ORDERED: KCL IV SCH ×2 (09:15)
[2018-05-05 09:57] VITALS: BP_SYST 136
[2018-05-05] MEDS ORDERED: DEXTROSE 50%-WATER 50 ML DISP.SYRIN IVP PRN (10:00)
[2018-05-05] MEDS ORDERED: D5W 1,000 ML IV PRN (10:00)
[2018-05-05] MEDS ORDERED: GLUCOSE 15 GM GEL (in 37.5 GM TUBE) PO PRN (10:00)
[2018-05-05] MEDS ORDERED: KCL 20 mEq in 0.45% NS 1000 mL 1,000 ML IV SCH (11:00)
[2018-05-05] MEDS: KCL 20 mEq in 0.45% NS 1000 mL 1,000 ML IV SCH (12:12)
[2018-05-05] MEDS: INSULIN REGULAR, HUMAN 100 UNITS/ML, 10 ML VIAL (novoLIN R) SUBCUT PRN ×3 (12:14→22:35)
[2018-05-05 12:25] VITALS: BP_SYST 96
[2018-05-05 16:28] VITALS: BP_SYST 100
[2018-05-05] MEDS ORDERED: IBUPROFEN 600 MG TABLET PO SCH (17:45)
[2018-05-05] MEDS ORDERED: LORATADINE 10 MG TABLET PO PRN (17:45)
[2018-05-05] MEDS ORDERED: LORazepam 1 MG TABLET PO SCH (17:45)
[2018-05-05] MEDS ORDERED: TRAMADOL PO SCH (21:00)
[2018-05-05] MEDS ORDERED: ACETAMINOPHEN PO SCH (21:00)
[2018-05-05] MEDS: FLUTICASONE 44 mcg/ACTUATION MDI AER.W.ADAP INH SCH (21:00)
[2018-05-05] MEDS ORDERED: [UNRECOGNIZED DRUG - OTHER] PO SCH (21:00)
[2018-05-05] MEDS ORDERED: NYSTATIN/TRIAMCIN 15 GM TOPICAL CREAM TP SCH (21:00)
[2018-05-05] MEDS ORDERED: CEFEPIME 1 GM/VIAL (MAXIPIME) ONE (21:39)
[2018-05-05] MEDS: CEFEPIME 1 GM in D5W 50 ML IV SCH (22:32)
[2018-05-05] MEDS: ATORVASTATIN 10 MG TABLET PO SCH (22:33)
[2018-05-05] MEDS: GABAPENTIN 100 MG CAPSULE PO SCH (22:33)
[2018-05-05] MEDS: MIRTAZAPINE 15 MG TABLET PO SCH (22:33)
[2018-05-05] MEDS: OXYBUTYNIN CHLORIDE 5 MG TABLET PO SCH (22:33)
[2018-05-06 00:34] VITALS: BP_SYST 125
[2018-05-06] MEDS: KCL 20 mEq in 0.45% NS 1000 mL 1,000 ML IV SCH ×2 (05:19→14:28)
[2018-05-06] MEDS: INSULIN REGULAR, HUMAN 100 UNITS/ML, 10 ML VIAL (novoLIN R) SUBCUT PRN ×3 (06:00→20:29)
[2018-05-06 08:50] VITALS: BP_SYST 112
[2018-05-06] MEDS: FLUTICASONE 44 mcg/ACTUATION MDI AER.W.ADAP INH SCH ×2 (09:00→21:00)
[2018-05-06] MEDS ORDERED: TERCONAZOLE VG SCH (09:00)
[2018-05-06] MEDS ORDERED: LEVOTHYROXINE SODIUM 0.1 MG TABLET PO SCH ×2 (09:00→09:13)
[2018-05-06] MEDS: OXYBUTYNIN CHLORIDE 5 MG TABLET PO SCH ×2 (09:22→20:26)
[2018-05-06] MEDS: CEFEPIME 1 GM in D5W 50 ML IV SCH ×2 (09:22→20:26)
[2018-05-06] MEDS: CITALOPRAM HYDROBROMIDE 20 MG TABLET PO SCH (09:22)
[2018-05-06] MEDS: FENOFIBRATE NANOCRYSTALLIZED 48 MG TABLET (TRICOR) PO SCH (09:23)
[2018-05-06] MEDS: FUROSEMIDE 20 MG TABLET PO SCH (09:24)
[2018-05-06] MEDS: GABAPENTIN 100 MG CAPSULE PO SCH ×3 (09:24→20:26)
[2018-05-06] MEDS: NYSTATIN/TRIAMCIN 15 GM TOPICAL CREAM TP SCH ×2 (09:26→21:00)
[2018-05-06] MEDS: MUPIROCIN 2% TOPICAL OINTMENT 22 GM TP SCH (09:26)
[2018-05-06] MEDS: ENOXAPARIN SODIUM 40 MG/0.4 ML SYRINGE SUBCUT SCH (09:29)
[2018-05-06] MEDS: TRIAMCINOLONE ACETONIDE 0.1% 15 GM CREAM.GM. TP SCH (09:30)
[2018-05-06 12:55] VITALS: BP_SYST 111
[2018-05-06 17:03] VITALS: BP_SYST 130
[2018-05-06] MEDS: MIRTAZAPINE 15 MG TABLET PO SCH (20:26)
[2018-05-06] MEDS: ATORVASTATIN 10 MG TABLET PO SCH (20:26)
[2018-05-07 00:32] VITALS: BP_SYST 118
[2018-05-07] MEDS: KCL 20 mEq in 0.45% NS 1000 mL 1,000 ML IV SCH ×2 (03:00→22:03)
[2018-05-07] MEDS: LEVOTHYROXINE SODIUM 0.1 MG TABLET PO SCH (06:20)
[2018-05-07] MEDS: FLUTICASONE 44 mcg/ACTUATION MDI AER.W.ADAP INH SCH ×2 (09:00→21:00)
[2018-05-07] MEDS: FUROSEMIDE 20 MG TABLET PO SCH (09:00)
[2018-05-07 10:17] VITALS: BP_SYST 128
[2018-05-07] MEDS: OXYBUTYNIN CHLORIDE 5 MG TABLET PO SCH ×2 (10:38→21:50)
[2018-05-07] MEDS: CITALOPRAM HYDROBROMIDE 20 MG TABLET PO SCH (10:38)
[2018-05-07] MEDS: GABAPENTIN 100 MG CAPSULE PO SCH ×3 (10:39→21:00)
[2018-05-07] MEDS: FENOFIBRATE NANOCRYSTALLIZED 48 MG TABLET (TRICOR) PO SCH (10:39)
[2018-05-07] MEDS: TRIAMCINOLONE ACETONIDE 0.1% 15 GM CREAM.GM. TP SCH (10:40)
[2018-05-07] MEDS: MUPIROCIN 2% TOPICAL OINTMENT 22 GM TP SCH (10:40)
[2018-05-07] MEDS: NYSTATIN/TRIAMCIN 15 GM TOPICAL CREAM TP SCH ×2 (10:40→21:00)
[2018-05-07] MEDS: ENOXAPARIN SODIUM 40 MG/0.4 ML SYRINGE SUBCUT SCH (10:42)
[2018-05-07] MEDS: CEFEPIME 1 GM in D5W 50 ML IV SCH ×2 (11:06→21:48)
[2018-05-07 11:29] VITALS: BP_SYST 105
[2018-05-07] MEDS: INSULIN REGULAR, HUMAN 100 UNITS/ML, 10 ML VIAL (novoLIN R) SUBCUT PRN ×2 (11:43→22:00)
[2018-05-07] MEDS: MULTIVIT-MINERALS/FERROUS GLUC 15 ML UDC GT SCH (16:18)
[2018-05-07 20:00] VITALS: BP_SYST 149
[2018-05-07] MEDS: ATORVASTATIN 10 MG TABLET PO SCH (21:00)
[2018-05-07] MEDS: MUPIROCIN 2% TOPICAL OINTMENT 22 GM NS SCH (21:00)
[2018-05-07] MEDS: DRONABINOL 2.5 MG CAPSULE PO SCH (21:00)
[2018-05-07] MEDS: MIRTAZAPINE 15 MG TABLET PO SCH (21:50)
[2018-05-08 01:15] VITALS: BP_SYST 178
[2018-05-08] MEDS: LEVOTHYROXINE SODIUM 0.1 MG TABLET PO SCH (05:59)
[2018-05-08] MEDS: INSULIN REGULAR, HUMAN 100 UNITS/ML, 10 ML VIAL (novoLIN R) SUBCUT PRN ×3 (06:06→17:57)
[2018-05-08 08:59] VITALS: BP_SYST 153
[2018-05-08] MEDS: CITALOPRAM HYDROBROMIDE 20 MG TABLET PO SCH ×2 (09:00→12:05)
[2018-05-08] MEDS: OXYBUTYNIN CHLORIDE 5 MG TABLET PO SCH ×3 (09:00→21:53)
[2018-05-08] MEDS: FENOFIBRATE NANOCRYSTALLIZED 48 MG TABLET (TRICOR) PO SCH ×2 (09:00→12:05)
[2018-05-08] MEDS: MULTIVIT-MINERALS/FERROUS GLUC 15 ML UDC GT SCH ×2 (09:00→12:04)
[2018-05-08] MEDS: MUPIROCIN 2% TOPICAL OINTMENT 22 GM NS SCH ×3 (09:00→21:55)
[2018-05-08] MEDS: ENOXAPARIN SODIUM 40 MG/0.4 ML SYRINGE SUBCUT SCH ×2 (09:00→12:04)
[2018-05-08] MEDS: TRIAMCINOLONE ACETONIDE 0.1% 15 GM CREAM.GM. TP SCH ×2 (09:00→12:07)
[2018-05-08] MEDS: MUPIROCIN 2% TOPICAL OINTMENT 22 GM TP SCH (09:00)
[2018-05-08] MEDS: FUROSEMIDE 20 MG TABLET PO SCH ×2 (09:00→12:05)
[2018-05-08] MEDS: DRONABINOL 2.5 MG CAPSULE PO SCH ×3 (09:00→21:54)
[2018-05-08] MEDS: NYSTATIN/TRIAMCIN 15 GM TOPICAL CREAM TP SCH ×3 (09:00→21:55)
[2018-05-08] MEDS: FLUTICASONE 44 mcg/ACTUATION MDI AER.W.ADAP INH SCH ×2 (09:00→21:55)
[2018-05-08] MEDS: GABAPENTIN 100 MG CAPSULE PO SCH ×4 (09:00→21:53)
[2018-05-08] MEDS: CEFEPIME 1 GM in D5W 50 ML IV SCH ×2 (09:03→21:52)
[2018-05-08 11:31] VITALS: BP_SYST 154
[2018-05-08] MEDS: KCL 20 mEq in 0.45% NS 1000 mL 1,000 ML IV SCH ×2 (11:39→21:52)
[2018-05-08 15:37] VITALS: BP_SYST 154
[2018-05-08 19:00] VITALS: BP_SYST 137
[2018-05-08] MEDS: MIRTAZAPINE 15 MG TABLET PO SCH (21:52)
[2018-05-08] MEDS: ATORVASTATIN 10 MG TABLET PO SCH (21:53)
[2018-05-08 23:08] VITALS: BP_SYST 128
[2018-05-09] MEDS: LEVOTHYROXINE SODIUM 0.1 MG TABLET PO SCH (06:21)
[2018-05-09] MEDS: INSULIN REGULAR, HUMAN 100 UNITS/ML, 10 ML VIAL (novoLIN R) SUBCUT PRN ×2 (06:29→14:27)
[2018-05-09 08:00] VITALS: BP_SYST 140
[2018-05-09] MEDS: MUPIROCIN 2% TOPICAL OINTMENT 22 GM TP SCH (09:00)
[2018-05-09] MEDS: OXYBUTYNIN CHLORIDE 5 MG TABLET PO SCH (09:51)
[2018-05-09] MEDS: FUROSEMIDE 20 MG TABLET PO SCH (09:51)
[2018-05-09] MEDS: FENOFIBRATE NANOCRYSTALLIZED 48 MG TABLET (TRICOR) PO SCH (09:51)
[2018-05-09] MEDS: GABAPENTIN 100 MG CAPSULE PO SCH (09:51)
[2018-05-09] MEDS: CITALOPRAM HYDROBROMIDE 20 MG TABLET PO SCH (09:52)
[2018-05-09] MEDS: ENOXAPARIN SODIUM 40 MG/0.4 ML SYRINGE SUBCUT SCH (09:52)
[2018-05-09] MEDS: FLUTICASONE 44 mcg/ACTUATION MDI AER.W.ADAP INH SCH (09:53)
[2018-05-09] MEDS: MULTIVIT-MINERALS/FERROUS GLUC 15 ML UDC GT SCH (09:53)
[2018-05-09] MEDS: DRONABINOL 2.5 MG CAPSULE PO SCH (09:54)
[2018-05-09] MEDS: MUPIROCIN 2% TOPICAL OINTMENT 22 GM NS SCH (09:54)
[2018-05-09] MEDS: CEFEPIME 1 GM in D5W 50 ML IV SCH (09:54)
[2018-05-09] MEDS: NYSTATIN/TRIAMCIN 15 GM TOPICAL CREAM TP SCH (09:55)
[2018-05-09] MEDS: TRIAMCINOLONE ACETONIDE 0.1% 15 GM CREAM.GM. TP SCH (09:55)
[2018-05-09 13:11] VITALS: BP_SYST 116
[2018-05-09 14:18] VITALS: BP_SYST 116
== END 2018-05-09 15:45 | DRG 638 ==
LOC: SED 01:48 → SMU 09:13
PROVIDERS: ADMIT Family Medicine; ATTEND Family Medicine
DX: E11.65 Type 2 diabetes mellitus with hyperglycemia (principal); N39.0 Urinary tract infection, site not specified; E11.40 Type 2 diabetes mellitus with diabetic neuropathy, unspecified; E11.22 Type 2 diabetes mellitus with diabetic chronic kidney disease; N18.9 Chronic kidney disease, unspecified; I12.9 Hypertensive chronic kidney disease with stage 1 through stage 4 chronic kidney disease, or unspecified chronic kidney disease; E03.9 Hypothyroidism, unspecified; E78.00 Pure hypercholesterolemia, unspecified; F41.9 Anxiety disorder, unspecified; M19.90 Unspecified osteoarthritis, unspecified site; W18.39XA Other fall on same level, initial encounter; Y93.89 Activity, other specified; Y92.89 Other specified places as the place of occurrence of the external cause; Y99.8 Other external cause status; Z91.09 Other allergy status, other than to drugs and biological substances; Z90.49 Acquired absence of other specified parts of digestive tract; Z79.899 Other long term (current) drug therapy; Z87.81 Personal history of (healed) traumatic fracture; Z82.49 Family history of ischemic heart disease and other diseases of the circulatory system
CPT/HCPCS: 36415; 80053; 81000-TC; 82550-TC; 82962; 83690-TC; 84484; 85025; 85610-TC; 85730-TC; 87081; 87086; 93005; 96361; 96374; 99285; J0692; J1650; J1815; J3480; J7030; J7060; Q0167

== ENCOUNTER 2018-08-28 19:38 | Inpatient (IN) | payer OTHER, MEDICAID ==
[~2018-08-28] VITALS: Ht 157.5 cm; Wt 103.9 kg
[~2018-08-28 19:38] MED LIST changes: -ALEN70TA27 PO; +BACTROBAN TP; -BUPR1PAT2 TP; +ESCI10TA PO; -FENO40TA3 PO; +FLO44 INH; +FURO-150 PO; +GABA-529 PO; -GABA-531 PO; -HEPA500015 SUBCUT; +IBUP-1969 PO; +LORA1TAB PO; -METH500T PO; +MYCOLOG15 TP; +OXYB5TAB11 PO; -TEMA15CA5 PO
--- NOTE | 2018-08-28 21:07 | NUR ---
ADMISSION NOTE/DIRECT ADMIT Patient a direct admit. Dr. Burleson admitting physician. Diagnosis WEAKNESS/MULTIPLE FALLS.
[2018-08-28 21:57] VITALS: BP_SYST 134
--- NOTE | 2018-08-28 22:15 | NUR ---
Meds reconciled Addendum: 08/29/18 at 0257 by Starr Garcia RN Per Dr. Burleson, he will look at patient's home meds and continue them.
--- NOTE | 2018-08-28 22:20 | NUR ---
Dr. Burleson at the bedside.
[2018-08-28] MEDS ORDERED: DOCU-144 PO (22:26)
[2018-08-28] MEDS ORDERED: INSU100V9 SQ (22:26)
[2018-08-28] MEDS ORDERED: TRAM100T34 PO (22:26)
[2018-08-28] MEDS ORDERED: SENN8.6T19 PO (22:26)
[2018-08-28] MEDS ORDERED: MOM PO (22:26)
[2018-08-28] MEDS ORDERED: BISA-79 PO (22:26)
[2018-08-28] MEDS ORDERED: SSREG SUBCUT (22:31)
[2018-08-28] MEDS ORDERED: CEFEPIME 1 GM in D5W 50 ML IV ONE (22:45)
--- NOTE | 2018-08-28 22:45 | NUR ---
Blood sugar 408. Dr. Burleson notified at the nursing station. Ordered to give 15 units of regular insulin now.
[2018-08-28] MEDS: INSULIN REGULAR, HUMAN 100 UNITS/ML, 10 ML VIAL (humuLIN R) SUBCUT PRN (22:56)
--- NOTE | 2018-08-28 22:59 | NUR ---
Administered 15 units of regular insulin SQ per MD order.
--- NOTE | 2018-08-28 23:02 | NUR ---
Placed patient on the bedpan.
[2018-08-28 23:41] LABS: BILIRUBIN,URINE NEGATIVE (NEGATIVE); BLOOD, URINE 1+ (NEGATIVE); CLARITY/URINE HAZY (CLEAR); COLOR,URINE YELLOW (YELLOW); GLUCOSE,URINE 3+ (NEGATIVE); KETONES,URINE NEGATIVE (NEGATIVE); LEUKOCYTE ESTERASE ,URINE 2+ (NEGATIVE); NITRITE, URINE NEGATIVE (NEGATIVE); PROTEIN URINE NEGATIVE (NEGATIVE); UROBILINOGEN,URINE 0.2 (0.2-1.0)
[2018-08-28] MEDS ORDERED: CEFEPIME 1 GM/VIAL (MAXIPIME) ONE (23:45)
[2018-08-28 23:57] LABS: BACTERIA,URINE MANY /HPF (None Seen); WBC,URINE >100 /HPF (0-3)
[2018-08-28 23:58] LABS: MUCUS,URINE 2+ /LPF (None Seen); YEAST,URINE Many /HPF (None Seen)
--- NOTE | 2018-08-28 23:58 | NUR ---
IV abx hung
--- NOTE | 2018-08-29 01:31 | NUR ---
Patient resting in bed with eyes closed. Breathing unlabored and even on room air. No signs of distress, no needs at this time. Fall and safety precautions in place. Bed in lowest position, brake on, alarm on, call light within reach. Will continue to monitor.
[2018-08-29] MEDS: INSULIN REGULAR, HUMAN 100 UNITS/ML, 10 ML VIAL (humuLIN R) SUBCUT PRN ×4 (06:05→20:40)
--- NOTE | 2018-08-29 06:06 | NUR ---
Blood sugar: 168. Administered 2 units of regular insulin per PRN insulin sliding scale.
--- NOTE | 2018-08-29 06:52 | NUR ---
CLOSING NOTE Patient resting in bed with eyes closed. Breathing unlabored and even on room air. No signs of distress, no needs at this time. Fall and safety precautions in place. Bed in lowest position, brake on, alarm on, call light within reach. Will endorse cares to day shift nurse.
[2018-08-29 07:13] LABS: BASOPHILS # (AUTO) 0.1 K/uL (0.0-0.2); BASOPHILS % (AUTO) 1.2 % (0.0-2.0); EOSINOPHILS # (AUTO) 0.5 K/uL (0.0-0.4); EOSINOPHILS % (AUTO) 5.4 % (0.0-4.0); HEMOGLOBIN 12.7 g/dL (12.0-16.0); LYMPHOCYTES # (AUTO) 2.9 K/uL (1.0-5.5); LYMPHOCYTES % (AUTO) 34.9 % (20.5-51.5); MEAN CORPUSCULAR HEMOGLOBIN 26 pg (27-31); MEAN CORPUSCULAR HGB CONC 33 % (32-36); MEAN CORPUSCULAR VOLUME 79 fL (79.0-98.0); MONOCYTES # (AUTO) 0.5 K/uL (0.0-1.0); MONOCYTES % (AUTO) 6.5 % (1.7-9.3); NEUTROPHILS # (AUTO) 4.4 K/uL (1.8-7.7); PLATELET COUNT (AUTO) 331 K/uL (130-430); RED BLOOD CELL COUNT(AUTO) 4.97 MIL/uL (4.2-6.2); RED CELL DISTRIBUTION WIDTH 14.6 % (9.0-15.0); WHITE BLOOD COUNT (AUTO) 8.4 K/uL (4.8-10.8)
[2018-08-29 07:40] LABS: CALCIUM 9.3 mg/dL (8.4-11.0); CREATININE 1.32 mg/dL (0.55-1.30)
--- NOTE | 2018-08-29 08:15 | NUR ---
AM note patient resting in bed, a/ox4, periods of forgetfulness, patient denies pain, assessment complete, skin breakdown noted, educated the patient on plan of care and call light system, she verbalized understanding, bed in lowest position, three side rials up, bed alarm on, bed close to nursing station, fall and aspiration precautions in place.
[2018-08-29 08:16] VITALS: BP_SYST 110
[2018-08-29] MEDS: CEFEPIME 1 GM in D5W 50 ML IV SCH ×2 (09:42→20:43)
--- NOTE | 2018-08-29 09:42 | NUR ---
Medication patient resting in bed, awake, educated on IV medication uses and potential side effects, she verbalized understanding, IV line is patent and infusing well, continuing to monitor, bed in lowest position, three side rails up, bed alarm on, bed close to nursing station, call light placed within reach, bed alarm on, fall and aspiration precautions in place.
--- NOTE | 2018-08-29 10:32 | NUR ---
Nutrition Update Sahil Scale 14 noted. Pt admitted for weakness, multiple falls. Diet: [facility] BMI: 42.1 kg/m2 RD to follow per nutrition care standards.
--- NOTE | 2018-08-29 11:10 | NUR ---
Rounds/Blood glucose patient resting in bed, asking to be changed, patient voided, cleaned and turned and repositioned patient. Checked patient's blood glucose and provided insulin coverage per MD orders, no other needs at this time, continuing to monitor, bed in lowest position, three side rails up, bed alarm on, bed close to nursing station, call light placed within reach, fall and aspiration precautions in place.
[2018-08-29 11:38] VITALS: BP_SYST 119
--- NOTE | 2018-08-29 13:25 | NUR ---
RN rounds patient resting in bed, eyes closed, breathing is even and unlabored, no signs of distress, continuing to monitor, bed in lowest position, three side rails up, bed alarm on, bed close to nursing station, call light placed within reach, fall and aspiration precautions in place.
--- NOTE | 2018-08-29 15:42 | NUR ---
RN rounds patient resting in bed, denies pain, reading a book, stable condition, continuing to monitor, bed in lowest position, three side rails up, bed alarm on, bed close to nursing station, call light placed within reach, fall and aspiration precautions in place.
[2018-08-29 16:09] VITALS: BP_SYST 114
--- NOTE | 2018-08-29 18:52 | NUR ---
Dr. Burleson rounds informed that home medications need to be reconciled, MD to follow up.
--- NOTE | 2018-08-29 18:52 | NUR ---
Closing note patient resting in bed, awake, denies pain, all needs met, will endorse report to NOC shift nurse, bed in lowest position, three side rails up, bed alarm on, bed close to nursing station, call light within reach, fall and aspiration precautions in place.
[2018-08-29] MEDS ORDERED: traMADol HCL HCL 50 MG TABLET (ULTRAM) PO PRN (19:00)
[2018-08-29] MEDS ORDERED: FENOFIBRATE NANOCRYSTALLIZED 48 MG TABLET (TRICOR) PO ONE (19:00)
[2018-08-29] MEDS ORDERED: MILK OF MAGNESIA 30 ML UDC PO PRN (19:00)
--- NOTE | 2018-08-29 19:35 | NUR ---
ROUNDS PATIENT RESTING COMFORTABLY IN BED, VITALS STABLE, DENIES ANY PAIN AND DISCOMFORT AT THIS TIME. ASSESSMENT DONE AND DOCUMENTED. SEE FLOWSHEET. NEEDS ATTENDED TO. SAFETY AND FALL PRECAUTION MEASURES IN PLACED. BED IN LOW AND LOCKED POSITION. CALL LIGHT PLACED WITHIN REACH.
[2018-08-29] MEDS: DOCUSATE SODIUM 100 MG CAPSULE PO SCH (20:32)
[2018-08-29] MEDS: ATORVASTATIN 10 MG TABLET PO SCH (20:32)
[2018-08-29] MEDS: GABAPENTIN 100 MG CAPSULE PO SCH (20:33)
[2018-08-29] MEDS: MIRTAZAPINE 15 MG TABLET PO SCH (20:33)
[2018-08-29] MEDS: BISACODYL 5 MG TABLET.DR (DULCOLAX) PO SCH (20:33)
[2018-08-29] MEDS: OXYBUTYNIN CHLORIDE 5 MG TABLET PO SCH (20:33)
[2018-08-29] MEDS: ENOXAPARIN SODIUM 40 MG/0.4 ML SYRINGE SUBCUT SCH (20:34)
[2018-08-29] MEDS: INSULIN GLARGINE 100 UNITS/ML 10 ML VIAL SUBCUT SCH (20:38)
[2018-08-29] MEDS ORDERED: INSULIN GLARGINE HUM REC ANLOG 65 UNIT SQ SCH (21:00)
[2018-08-29] MEDS: SENNOSIDES 8.6 MG TABLET PO SCH (21:00)
[2018-08-29] MEDS ORDERED: ENOXAPARIN SODIUM 40 MG/0.4 ML SYRINGE SUBCUT SCH (21:00)
[2018-08-29] MEDS ORDERED: FLUTICASONE 44 mcg/ACTUATION MDI AER.W.ADAP INH SCH (21:00)
[2018-08-29] MEDS: NYSTATIN/TRIAMCIN 15 GM TOPICAL CREAM TP SCH (21:00)
--- NOTE | 2018-08-29 21:13 | NUR ---
ACCU CHECK ACCU CHECK DONE, BLOOD SUGAR 278, REGULAR INSULIN 6 UNITS GIVEN SUBCU PER SLIDING SCALE. WILL CONTINUE TO MONITOR.
[2018-08-29] MEDS: IBUPROFEN 600 MG TABLET PO PRN (22:56)
--- NOTE | 2018-08-30 00:12 | NUR ---
PATIENT RESTING: Patient resting quietly. No acute distress noted. Vital signs within normal range.
--- NOTE | 2018-08-30 02:20 | NUR ---
ROUNDS PATIENT ASLEEP, RESPIRATIONS EVEN AND UNLABORED, VITALS STABLE. WILL CONTINUE TO MONITOR.
[2018-08-30 02:31] VITALS: BP_SYST 120
--- NOTE | 2018-08-30 04:25 | NUR ---
ROUNDS PATIENT ASLEEP, NO SOB NOR PAIN AND DISCOMFORT NOTED, WILL CONTINUE TO MONITOR.
[2018-08-30] MEDS: INSULIN REGULAR, HUMAN 100 UNITS/ML, 10 ML VIAL (humuLIN R) SUBCUT PRN ×4 (06:19→21:08)
--- NOTE | 2018-08-30 06:29 | NUR ---
CLOSING NOTES PATIENT AWAKE, ACCU CHECK DONE WITH BLOOD SUGAR OF 298. REGULAR INSULIN 6 UNITS GIVEN SUBCU PER SLIDING SCALE. ALL NEEDS ATTENDED TO. SAFETY AND FALL PRECAUTION MEASURES MAINTAINED. CALL LIGHT PLACED WITHIN REACH.
--- NOTE | 2018-08-30 07:15 | NUR ---
OPENING NOTE RECEIVED PT FROM NIGHT RN. PT IS SLEEPING COMFORTABLY IN BED. FALL PRECAUTIONS IN PLACE, BED IN LOWEST POSITION, CALL LIGHT WITHIN REACH OF PT, SIDE RAILS UP. PT APPEARS TO BE IN NO DISTRESS OR DISCOMFORT. WILL CONTINUE TO MONITOR.
[2018-08-30 08:10] VITALS: BP_SYST 123
--- NOTE | 2018-08-30 08:10 | NUR ---
ROUNDING NOTES PT IS RESTING COMFORTABLY IN BED. DOES NOT APPEAR TO BE IN ANY PAIN OR DISCOMFORT. BED IN LOWEST POSITION, CALL LIGHT WITHIN REACH OF PT. WILL CONTINUE TO MONITOR.
[2018-08-30] MEDS: BISACODYL 5 MG TABLET.DR (DULCOLAX) PO SCH ×2 (08:32→21:00)
[2018-08-30] MEDS: FENOFIBRATE NANOCRYSTALLIZED 48 MG TABLET (TRICOR) PO SCH (08:32)
[2018-08-30] MEDS: CITALOPRAM HYDROBROMIDE 20 MG TABLET PO SCH (08:33)
[2018-08-30] MEDS: LEVOTHYROXINE SODIUM 0.1 MG TABLET PO SCH (08:34)
[2018-08-30] MEDS: DOCUSATE SODIUM 100 MG CAPSULE PO SCH ×2 (08:34→21:00)
[2018-08-30] MEDS: GABAPENTIN 100 MG CAPSULE PO SCH ×3 (08:35→20:29)
[2018-08-30] MEDS: FUROSEMIDE 20 MG TABLET PO SCH (08:35)
[2018-08-30] MEDS: OXYBUTYNIN CHLORIDE 5 MG TABLET PO SCH ×2 (08:57→20:29)
[2018-08-30] MEDS: CEFEPIME 1 GM in D5W 50 ML IV SCH ×2 (08:59→20:34)
[2018-08-30] MEDS: NYSTATIN/TRIAMCIN 15 GM TOPICAL CREAM TP SCH ×2 (09:00→21:09)
[2018-08-30] MEDS: MUPIROCIN 2% TOPICAL OINTMENT 22 GM TP SCH (09:00)
[2018-08-30] MEDS: INSULIN GLARGINE 100 UNITS/ML 10 ML VIAL SUBCUT SCH ×2 (09:01→21:06)
--- NOTE | 2018-08-30 10:10 | NUR ---
ROUNDING NOTE PT IS SITTING UP IN BED WATCHING TV. PROVIDED MARVIN CARE ON PT. BED IS IN LOWEST POSITION, CALL LIGHT WITHIN REACH OF PT. PT DOES NOT APPEAR TO BE IN ANY PAIN OR DISCOMFORT. WILL CONTINUE TO MONITOR.
--- NOTE | 2018-08-30 10:16 | NUR ---
Patient with Physical Therapy tolerating well, continuing to monitor.
--- NOTE | 2018-08-30 11:30 | NUR ---
Patient's orthopedic Doctor Dr. Crowder performed right ankle ORIF on patient in January 2018, patient missed her follow up appointment on August 01, 2018, patient would like her nursing facility to make her a follow up appt. Dr. Crowder - [phone]
--- NOTE | 2018-08-30 12:06 | NUR ---
Wound Evaluation: Late note for 1206 secondary to patient care. Wound Consult ordered for Low Sahil Score. Patient evaluated for a low Sahil score of 16. Patient was awake, alert, oriented and received in a Anand Bed with an IsoFlex TARAN mattress. Patient is able to turn in bed with assist. Skin is intact. Recommend encourage and assist patient as needed with repositioning side to side only every 2 hours with pillow support. Elevate, off-load and float bilateral heels with pillows. Offload pressure areas with pillows for pressure re-distribution. Perform skin care and monitor skin integrity Q shift. Use moisture barrier cream on moisture susceptible areas QID and PRN for soiling. Initiate low air-loss therapy. Skin assessment: 1. Left lateral abdominal fold: Erythema from intertrigo, present on admission. 2. Right lateral abdominal fold: Erythema from intertrigo, present on admission. 3. Left inguinal area: Erythema from intertrigo, present on admission. 4. Right inguinal area: Erythema from intertrigo, present on admission. Recommend: Cleanse involved areas with mild soap and water. Pat dry. Apply Nystatin powder to involved areas. Perform site care BID, and as needed for soiling. 5. Perineal area: Erythema from IAD, present on admission. Recommend: Cleanse involved area with mild soap and water. Pat dry. Apply moisture barrier cream to involved area. Perform site care QID, and as needed for soiling.
[2018-08-30 12:10] VITALS: BP_SYST 133
--- NOTE | 2018-08-30 12:10 | NUR ---
ROUNDING NOTE PT IS SITTING UP IN BED EATING LUNCH. DID WOUND EVALUATION WITH SAMANTHA, WOUND CARE NURSE, HE ORDERED ANTIFUNGAL POWDER FOR UNDER ABDOMINAL FOLD AND INNER THIGH, AND LOW AIR LOSS MATTRESS. PT APPEARS TO BE IN NO PAIN OR DISCOMFORT. BED IS IN LOWEST POSITION. CALL LIGHT WITHIN REACH OF PT. WILL CONTINUE TO MONITOR.
[2018-08-30] MEDS ORDERED: NYSTATIN 15 GM TOPICAL POWDER TP ONE (14:00)
--- NOTE | 2018-08-30 14:10 | NUR ---
ROUNDING NOTE PT IS RESTING IN BED WATCHING TV. PT APPEARS TO BE IN NO PAIN OR DISCOMFORT. BED IN LOWEST POSITION, CALL LIGHT WITHIN REACH OF PT. WILL CONTINUE TO MONITOR.
--- NOTE | 2018-08-30 15:54 | NUR ---
Dietitian Recommendations * [facility] * Low-glycemic PM snacks daily LP, RD Please refer to Nutrition Assessment for details.
[2018-08-30 16:10] VITALS: BP_SYST 110
--- NOTE | 2018-08-30 16:10 | NUR ---
ROUNDING NOTE PT IS LAYING IN BED. PT IS STABLE DOES NOT APPEAR TO BE IN ANY PAIN OR DISTRESS. BED IS IN LOWEST POSITION, CALL LIGHT WITHIN REACH. WILL CONTINUE TO MONITOR.
--- NOTE | 2018-08-30 18:45 | NUR ---
CLOSING NOTE PT JUST FINISHED HAVING BM. PT WAS CLEANED AND CHANGED. PT IS NOW RESTING IN BED AT LOWEST POSITION. CALL LIGHT WITHIN REACH OF PT. PT IS STABLE, DOES NOT APPEAR TO BE IN ANY PAIN OR DISCOMFORT. WILL ENDORSE TO NEXT SHIFT.
[2018-08-30 19:28] VITALS: BP_SYST 127
--- NOTE | 2018-08-30 19:35 | NUR ---
ROUNDS PATIENT IN BED, WATCHING TV, NOT IN DISTRESS, VITALS STABLE. DENIES ANY PAIN AND DISCOMFORT AT THIS TIME. ASSESSMENT DONE AND DOCUMENTED. SEE FLOWSHEET. NEEDS ATTENDED TO. SAFETY AND FALL PRECAUTION MEASURES IN PLACED. BED IN LOW AND LOCKED POSITION. CALL LIGHT PLACED WITHIN REACH.
[2018-08-30] MEDS: MIRTAZAPINE 15 MG TABLET PO SCH (20:28)
[2018-08-30] MEDS: ATORVASTATIN 10 MG TABLET PO SCH (20:29)
[2018-08-30] MEDS: ENOXAPARIN SODIUM 40 MG/0.4 ML SYRINGE SUBCUT SCH (20:32)
[2018-08-30] MEDS: SENNOSIDES 8.6 MG TABLET PO SCH (21:00)
[2018-08-30] MEDS: NYSTATIN 15 GM TOPICAL POWDER TP SCH (21:10)
--- NOTE | 2018-08-30 21:13 | NUR ---
ACCU CHECK ACCU CHECK DONE, BLOOD SUGAR 317 WITH 8 UNITS REGULAR INSULIN GIVEN SUBCU PER SLIDING SCALE. WILL CONTINUE TO MONITOR.
[2018-08-30] MEDS: IBUPROFEN 600 MG TABLET PO PRN (22:07)
[2018-08-31 00:10] VITALS: BP_SYST 126
--- NOTE | 2018-08-31 00:13 | NUR ---
PATIENT RESTING: Patient resting quietly. No acute distress noted. Vital signs within normal range.
--- NOTE | 2018-08-31 02:14 | NUR ---
ROUNDS PATIENT ASLEEP, RESPIRATIONS EVEN AND UNLABORED, NO SIGNS OF ANY PAIN AND DISCOMFORT NOTED. WILL CONTINUE TO MONITOR.
--- NOTE | 2018-08-31 04:13 | NUR ---
ROUNDS PATIENT ASLEEP, VITALS STABLE, NO SOB NOR PAIN AND DISCOMFORT NOTED. WILL CONTINUE TO MONITOR.
[2018-08-31] MEDS: INSULIN REGULAR, HUMAN 100 UNITS/ML, 10 ML VIAL (humuLIN R) SUBCUT PRN ×2 (06:09→11:08)
--- NOTE | 2018-08-31 06:36 | NUR ---
CLOSING NOTES PATIENT AWAKE, ACCU CHECK DONE WITH BLOOD SUGAR OF 278. REGULAR INSULIN 6 UNITS GIVEN SUBCU PER SLIDING SCALE. ALL NEEDS ATTENDED TO. SAFETY AND FALL MEASURES MAINTAINED. CALL LIGHT PLACED WITHIN REACH.
--- NOTE | 2018-08-31 08:05 | NUR ---
AM note patient resting in bed, a/ox4, patient denies pain, assessment complete, skin breakdown noted, educated the patient on plan of care and call light system, she verbalized understanding, bed in lowest position, three side rials up, bed alarm on, bed close to nursing station, fall and aspiration precautions in place.
[2018-08-31] MEDS: MUPIROCIN 2% TOPICAL OINTMENT 22 GM TP SCH (09:00)
[2018-08-31] MEDS: NYSTATIN/TRIAMCIN 15 GM TOPICAL CREAM TP SCH (09:00)
[2018-08-31 09:10] VITALS: BP_SYST 113
[2018-08-31] MEDS: BISACODYL 5 MG TABLET.DR (DULCOLAX) PO SCH (09:15)
[2018-08-31] MEDS: FENOFIBRATE NANOCRYSTALLIZED 48 MG TABLET (TRICOR) PO SCH (09:15)
[2018-08-31] MEDS: GABAPENTIN 100 MG CAPSULE PO SCH (09:15)
[2018-08-31] MEDS: CEFEPIME 1 GM in D5W 50 ML IV SCH (09:15)
[2018-08-31] MEDS: CITALOPRAM HYDROBROMIDE 20 MG TABLET PO SCH (09:15)
[2018-08-31] MEDS: OXYBUTYNIN CHLORIDE 5 MG TABLET PO SCH (09:15)
--- NOTE | 2018-08-31 09:15 | NUR ---
Medication patient resting in bed, awake, educated on medication uses and potential side effects, she verbalized understanding and tolerated well, IV line is patent and infusing well, continuing to monitor, bed in lowest position, three side rails up, bed alarm on, bed close to nursing station, call light placed within reach, bed alarm on, fall and aspiration precautions in place.
[2018-08-31] MEDS: FUROSEMIDE 20 MG TABLET PO SCH (09:16)
[2018-08-31] MEDS: DOCUSATE SODIUM 100 MG CAPSULE PO SCH (09:16)
[2018-08-31] MEDS: NYSTATIN 15 GM TOPICAL POWDER TP SCH (09:16)
[2018-08-31] MEDS: LEVOTHYROXINE SODIUM 0.1 MG TABLET PO SCH (09:16)
[2018-08-31] MEDS: INSULIN GLARGINE 100 UNITS/ML 10 ML VIAL SUBCUT SCH (09:23)
--- NOTE | 2018-08-31 11:00 | NUR ---
Discharge Planning: [facility] faxed pt referral to [facility] (f [phone] P [phone]) per Jerad pt accepted back to [facility], [facility] made patient nurse aware. Addendum: 08/31/18 at 1154 by Fang Ely DP Aaron Real ( [phone] P [phone]) [facility], transportation [facility] ([phone]). Patient packet taken to nurse station, nurse made aware. Addendum: 08/31/18 at 1155 by Fang Ely [facility] ambulance p/u 3:00pm
[2018-08-31] MEDS ORDERED: FLUCONAZOLE 200 mg/ NS 100 ML IV SCH (11:15)
--- NOTE | 2018-08-31 11:17 | NUR ---
RN rounds/blood glucose/Dr. Burleson patient resting in bed, eyes closed, breathing is even and unlabored, no signs of distress, easy to wake, blood glucose checked and insulin coverage provided, spoke with Dr. Burleson regarding critical blood glucose result, MD gave orders to increase scheduled Lantus dose, informed MD of urine cultured and DC planning, orders received, will follow up.
[2018-08-31 11:33] VITALS: BP_SYST 113
[2018-08-31 11:38] VITALS: BP_SYST 120
--- NOTE | 2018-08-31 11:52 | NUR ---
Medication/DC plan patient resting in bed, awake, denies pain, educated patient on bed antibiotic uses and potential side effects, and discussed DC planning back to [facility], she verbalized understanding, IV line is patent and infusing well, continuing to monitor, bed in lowest position, two side rails up, bed alarm on, bed close to nursing station, call light within reach, fall and aspiration precautions in place.
--- NOTE | 2018-08-31 13:15 | NUR ---
RN rounds patient resting in bed, awake, finished eating lunch, stable condition, continuing to monitor, bed in lowest position, two side rails up, bed alarm on, bed close to nursing station, call light within reach, fall and aspiration precautions in place.
--- NOTE | 2018-08-31 14:55 | NUR ---
PT TRANSFERRED Report given to VALENTE at [facility]. Transfer packet with Transfer Orders and Medication Reconciliation form given to EMT with report. Exitcare provided. [facility] ID band removed, replaced with ID band with pt's name and . All belongings sent with patient. Patient left floor via gurney escorted by EMT in no distress.
[2018-08-31] MEDS ORDERED: INSULIN GLARGINE 100 UNITS/ML 10 ML VIAL SUBCUT SCH (21:00)
== END 2018-08-31 14:55 | DRG 690 ==
LOC: SMU 21:12
PROVIDERS: ADMIT Family Medicine; ATTEND Family Medicine
DX: N39.0 Urinary tract infection, site not specified (principal); E11.42 Type 2 diabetes mellitus with diabetic polyneuropathy; M19.90 Unspecified osteoarthritis, unspecified site; E11.51 Type 2 diabetes mellitus with diabetic peripheral angiopathy without gangrene
CPT/HCPCS: 36415; 80048; 81000-TC; 82962; 85025; 87081; 87086; 97110-GP; 97530-GP; J0692; J1450; J1650; J1815; J7060

== ENCOUNTER 2019-03-18 15:49 | Inpatient (IN) | payer OTHER, MEDICAID ==
[~2019-03-18] VITALS: Ht 152.4 cm; Wt 108.0 kg
[~2019-03-18 15:49] MED LIST changes: +BISA-79 PO; +DEXAMETHASONE SOD PHOSPHATE 4 MG/ML VIAL IVP ONE; +DOCU-144 PO; +HYDROmorphone 2 MG/ML VIAL IVP ONE; +INSU100V9 SQ; +ISOFLURANE 15 MIN GAS INH ONE; +ISOSULFAN BLUE 5 ML VIAL (LYMPHAZURIN) INJ ONE; +KETOROLAC TROMETHAMINE 30 MG VIAL IVP ONE; +LABETALOL 100 MG/ 20ML VIAL IVP ONE; +MOM PO; +NS 1000 ML IV.SOLN IV ONE; +ONDANSETRON HCL 4 MG/2 ML VIAL IVP ONE; +PROPOFOL 200MG/ 20ML VIAL (DIPRIVAN) IV ONE; +SENN8.6T19 PO; +SSREG SUBCUT; +SUCCINYLCHOLINE CHLORIDE 20 MG/ML(QUELICIN) IVP ONE; +TRAM100T34 PO; +fentaNYL CITRATE/PF 100 MCG/2 ML AMP IVP ONE
[2019-03-18 22:05] VITALS: BP_SYST 102
[2019-03-18 22:22] VITALS: BP_SYST 115
[2019-03-18] MEDS ORDERED: CEFEPIME 1 GM in D5W 50 ML IV SCH (23:45)
[2019-03-18] MEDS ORDERED: DEXTROSE 50% JECT 50 ML DISP.SYRIN IVP PRN (23:45)
[2019-03-18] MEDS ORDERED: GLUCOSE 15 GM GEL (in 37.5 GM TUBE) PO PRN (23:45)
[2019-03-19 00:02] VITALS: BP_SYST 103
[2019-03-19] MEDS: 0.45% NS 1,000 ML IV SCH ×2 (00:20→13:05)
[2019-03-19] MEDS ORDERED: CEFEPIME 1 GM in D5W 50 ML IV SCH ×2 (00:30→01:00)
[2019-03-19 00:31] LABS: BASOPHILS # (AUTO) 0.1 K/uL (0.0-0.2); BASOPHILS % (AUTO) 1.1 % (0.0-2.0); EOSINOPHILS # (AUTO) 0.2 K/uL (0.0-0.4); EOSINOPHILS % (AUTO) 1.3 % (0.0-4.0); LYMPHOCYTES # (AUTO) 3.1 K/uL (1.0-5.5); LYMPHOCYTES % (AUTO) 25.9 % (20.5-51.5); MEAN CORPUSCULAR HEMOGLOBIN 26 pg (27-31); MEAN CORPUSCULAR HGB CONC 33 % (32-36); MEAN CORPUSCULAR VOLUME 78 fL (79.0-98.0); MONOCYTES # (AUTO) 0.7 K/uL (0.0-1.0); MONOCYTES % (AUTO) 5.8 % (1.7-9.3); NEUTROPHILS # (AUTO) 7.9 K/uL (1.8-7.7); NEUTROPHILS % (AUTO) 65.9 % (40.0-70.0); PLATELET COUNT (AUTO) 334 K/uL (130-430); RED BLOOD CELL COUNT(AUTO) 5.11 MIL/uL (4.2-6.2); RED CELL DISTRIBUTION WIDTH 14.2 % (9.0-15.0)
[2019-03-19 00:43] LABS: ALBUMIN 3.1 g/dL (3.4-4.8); CALCIUM 8.9 mg/dL (8.4-11.0); CREATININE 1.27 mg/dL (0.55-1.30); POTASSIUM 3.7 mmol/L (3.5-5.1); TOTAL BILIRUBIN 0.2 mg/dL (0.0-1.0)
[2019-03-19 00:58] LABS: BILIRUBIN,URINE NEGATIVE (NEGATIVE); BLOOD, URINE 3+ (NEGATIVE); CLARITY/URINE TURBID (CLEAR); COLOR,URINE YELLOW (YELLOW); GLUCOSE,URINE 3+ (NEGATIVE); KETONES,URINE NEGATIVE (NEGATIVE); LEUKOCYTE ESTERASE ,URINE 1+ (NEGATIVE); NITRITE, URINE NEGATIVE (NEGATIVE); PH,URINE 7.5 (5.0-8.0); PROTEIN URINE NEGATIVE (NEGATIVE); UROBILINOGEN,URINE 0.2 (0.2-1.0)
[2019-03-19 01:27] LABS: BACTERIA,URINE MODERATE /HPF (None Seen); WBC,URINE >100 /HPF (0-3)
[2019-03-19] MEDS: ACETAMINOPHEN 325 MG TABLET PO PRN (01:46)
[2019-03-19] MEDS: INSULIN REGULAR, HUMAN 100 UNITS/ML, 10 ML VIAL (humuLIN R) SUBCUT PRN ×5 (01:53→20:41)
[2019-03-19] MEDS ORDERED: CEFEPIME 1 GM/VIAL (MAXIPIME) ONE (02:08)
[2019-03-19 12:37] VITALS: BP_SYST 124
[2019-03-19] MEDS ORDERED: MILK OF MAGNESIA 30 ML UDC PO PRN (14:00)
[2019-03-19] MEDS: GABAPENTIN 100 MG CAPSULE PO SCH ×2 (15:05→20:29)
[2019-03-19 16:47] VITALS: BP_SYST 121
[2019-03-19 20:00] VITALS: BP_SYST 104
[2019-03-19] MEDS: SENNOSIDES 8.6 MG TABLET PO SCH (20:29)
[2019-03-19] MEDS: BISACODYL 5 MG TABLET.DR (DULCOLAX) PO SCH (20:29)
[2019-03-19] MEDS: MIRTAZAPINE 15 MG TABLET PO SCH (20:30)
[2019-03-19] MEDS: DOCUSATE SODIUM 100 MG CAPSULE PO SCH (20:30)
[2019-03-19] MEDS: ATORVASTATIN 10 MG TABLET PO SCH (20:30)
[2019-03-19] MEDS: CEFEPIME 1 GM in D5W 50 ML IV SCH (20:31)
[2019-03-19] MEDS: ENOXAPARIN SODIUM 40 MG/0.4 ML SYRINGE SUBCUT SCH (20:33)
[2019-03-19] MEDS: NYSTATIN/TRIAMCIN 15 GM TOPICAL CREAM TP SCH (20:35)
[2019-03-19] MEDS: INSULIN GLARGINE 100 UNITS/ML 10 ML VIAL SUBCUT SCH (20:42)
[2019-03-19] MEDS: FLOVENT INH SCH (20:55)
[2019-03-19] MEDS: OXYBUTYNIN CHLORIDE 5 MG TABLET PO SCH (20:58)
[2019-03-19] MEDS ORDERED: FLUTICASONE 44 mcg/ACTUATION MDI AER.W.ADAP INH SCH (21:00)
[2019-03-20 00:34] VITALS: BP_SYST 122
[2019-03-20] MEDS: 0.45% NS 1,000 ML IV SCH ×2 (02:45→15:53)
[2019-03-20] MEDS: LEVOTHYROXINE SODIUM 0.1 MG TABLET PO SCH (06:03)
[2019-03-20] MEDS: INSULIN REGULAR, HUMAN 100 UNITS/ML, 10 ML VIAL (humuLIN R) SUBCUT PRN ×2 (06:04→11:20)
[2019-03-20 08:00] VITALS: BP_SYST 117
[2019-03-20 08:57] LABS: PROTHROMBIN TIME 10.1 SECS (9.5-12.5)
[2019-03-20] MEDS ORDERED: ESCITALOPRAM OXALATE 10 MG TABLET PO SCH (09:00)
[2019-03-20] MEDS: FLOVENT INH SCH ×2 (09:00→21:00)
[2019-03-20] MEDS: MUPIROCIN 2% TOPICAL OINTMENT 22 GM TP SCH (09:12)
[2019-03-20] MEDS: BISACODYL 5 MG TABLET.DR (DULCOLAX) PO SCH ×2 (09:13→21:00)
[2019-03-20] MEDS: DOCUSATE SODIUM 100 MG CAPSULE PO SCH ×2 (09:13→21:00)
[2019-03-20] MEDS: NYSTATIN/TRIAMCIN 15 GM TOPICAL CREAM TP SCH ×2 (09:13→21:11)
[2019-03-20] MEDS: FENOFIBRATE NANOCRYSTALLIZED 48 MG TABLET (TRICOR) PO SCH (09:13)
[2019-03-20] MEDS: CITALOPRAM HYDROBROMIDE 20 MG TABLET PO SCH (09:14)
[2019-03-20] MEDS: GABAPENTIN 100 MG CAPSULE PO SCH ×3 (09:14→21:13)
[2019-03-20] MEDS: INSULIN GLARGINE 100 UNITS/ML 10 ML VIAL SUBCUT SCH ×2 (09:19→21:00)
[2019-03-20] MEDS: OXYBUTYNIN CHLORIDE 5 MG TABLET PO SCH ×2 (09:24→21:13)
[2019-03-20 11:07] VITALS: BP_SYST 91
[2019-03-20 15:28] VITALS: BP_SYST 104
[2019-03-20 20:00] VITALS: BP_SYST 109
[2019-03-20] MEDS: MIRTAZAPINE 15 MG TABLET PO SCH ×2 (21:00→21:14)
[2019-03-20] MEDS: SENNOSIDES 8.6 MG TABLET PO SCH (21:00)
[2019-03-20] MEDS: ENOXAPARIN SODIUM 40 MG/0.4 ML SYRINGE SUBCUT SCH ×2 (21:00→21:11)
[2019-03-20] MEDS: CEFEPIME 1 GM in D5W 50 ML IV SCH (21:09)
[2019-03-20] MEDS: ATORVASTATIN 10 MG TABLET PO SCH (21:13)
[2019-03-20 23:51] VITALS: BP_SYST 97
[2019-03-21] MEDS: 0.45% NS 1,000 ML IV SCH ×2 (05:05→18:27)
[2019-03-21] MEDS: LEVOTHYROXINE SODIUM 0.1 MG TABLET PO SCH (06:32)
[2019-03-21 07:43] LABS: BASOPHILS # (AUTO) 0.1 K/uL (0.0-0.2); BASOPHILS % (AUTO) 0.8 % (0.0-2.0); EOSINOPHILS # (AUTO) 0.5 K/uL (0.0-0.4); EOSINOPHILS % (AUTO) 5.1 % (0.0-4.0); HEMOGLOBIN 12.7 g/dL (12.0-16.0); LYMPHOCYTES # (AUTO) 3.3 K/uL (1.0-5.5); LYMPHOCYTES % (AUTO) 33.2 % (20.5-51.5); MEAN CORPUSCULAR HEMOGLOBIN 26 pg (27-31); MEAN CORPUSCULAR HGB CONC 33 % (32-36); MEAN CORPUSCULAR VOLUME 78 fL (79.0-98.0); MONOCYTES # (AUTO) 0.5 K/uL (0.0-1.0); MONOCYTES % (AUTO) 5.3 % (1.7-9.3); NEUTROPHILS # (AUTO) 5.6 K/uL (1.8-7.7); NEUTROPHILS % (AUTO) 55.6 % (40.0-70.0); PLATELET COUNT (AUTO) 305 K/uL (130-430); RED BLOOD CELL COUNT(AUTO) 4.98 MIL/uL (4.2-6.2); WHITE BLOOD COUNT (AUTO) 10.1 K/uL (4.8-10.8)
[2019-03-21 08:00] VITALS: BP_SYST 101
[2019-03-21 08:00] LABS: ALBUMIN 2.7 g/dL (3.4-4.8); CALCIUM 7.8 mg/dL (8.4-11.0); CREATININE 1.08 mg/dL (0.55-1.30); POTASSIUM 4.1 mmol/L (3.5-5.1); TOTAL BILIRUBIN 0.3 mg/dL (0.0-1.0)
[2019-03-21] MEDS: OXYBUTYNIN CHLORIDE 5 MG TABLET PO SCH ×2 (09:00→20:59)
[2019-03-21] MEDS: FLOVENT INH SCH ×2 (09:00→21:00)
[2019-03-21] MEDS: GABAPENTIN 100 MG CAPSULE PO SCH ×3 (09:00→20:58)
[2019-03-21] MEDS: BISACODYL 5 MG TABLET.DR (DULCOLAX) PO SCH ×2 (09:00→20:58)
[2019-03-21] MEDS: FENOFIBRATE NANOCRYSTALLIZED 48 MG TABLET (TRICOR) PO SCH (09:00)
[2019-03-21] MEDS: CITALOPRAM HYDROBROMIDE 20 MG TABLET PO SCH (09:00)
[2019-03-21] MEDS: DOCUSATE SODIUM 100 MG CAPSULE PO SCH ×2 (09:00→20:58)
[2019-03-21] MEDS: INSULIN GLARGINE 100 UNITS/ML 10 ML VIAL SUBCUT SCH ×2 (09:02→21:08)
[2019-03-21] MEDS: MUPIROCIN 2% TOPICAL OINTMENT 22 GM TP SCH (09:09)
[2019-03-21] MEDS: NYSTATIN/TRIAMCIN 15 GM TOPICAL CREAM TP SCH ×2 (09:10→21:15)
[2019-03-21 12:45] VITALS: BP_SYST 118
[2019-03-21 16:50] VITALS: BP_SYST 122
[2019-03-21] MEDS: INSULIN REGULAR, HUMAN 100 UNITS/ML, 10 ML VIAL (humuLIN R) SUBCUT PRN ×2 (17:02→21:09)
[2019-03-21 20:55] VITALS: BP_SYST 117
[2019-03-21] MEDS: CEFEPIME 1 GM in D5W 50 ML IV SCH (20:58)
[2019-03-21] MEDS: ATORVASTATIN 10 MG TABLET PO SCH (20:58)
[2019-03-21] MEDS: SENNOSIDES 8.6 MG TABLET PO SCH (20:58)
[2019-03-21] MEDS: MIRTAZAPINE 15 MG TABLET PO SCH (20:59)
[2019-03-21] MEDS: ENOXAPARIN SODIUM 40 MG/0.4 ML SYRINGE SUBCUT SCH (21:00)
[2019-03-21 23:54] VITALS: BP_SYST 111
[2019-03-22] VITALS (8 sets, daily range): BP systolic 85–128
[2019-03-22] MEDS: LORazepam 1 MG TABLET PO PRN (00:08)
[2019-03-22] MEDS: LEVOTHYROXINE SODIUM 0.1 MG TABLET PO SCH (06:00)
[2019-03-22] MEDS: INSULIN REGULAR, HUMAN 100 UNITS/ML, 10 ML VIAL (humuLIN R) SUBCUT PRN (06:01)
[2019-03-22] MEDS: 0.45% NS 1,000 ML IV SCH (08:55)
[2019-03-22] MEDS: MUPIROCIN 2% TOPICAL OINTMENT 22 GM TP SCH (08:57)
[2019-03-22] MEDS: CITALOPRAM HYDROBROMIDE 20 MG TABLET PO SCH (09:00)
[2019-03-22] MEDS: FLOVENT INH SCH ×2 (09:00→21:00)
[2019-03-22] MEDS: GABAPENTIN 100 MG CAPSULE PO SCH ×2 (09:00→15:00)
[2019-03-22] MEDS: OXYBUTYNIN CHLORIDE 5 MG TABLET PO SCH (09:00)
[2019-03-22] MEDS: INSULIN GLARGINE 100 UNITS/ML 10 ML VIAL SUBCUT SCH ×2 (09:00→21:00)
[2019-03-22] MEDS: FENOFIBRATE NANOCRYSTALLIZED 48 MG TABLET (TRICOR) PO SCH (09:00)
[2019-03-22] MEDS: NYSTATIN/TRIAMCIN 15 GM TOPICAL CREAM TP SCH ×2 (09:00→21:00)
[2019-03-22] MEDS: BISACODYL 5 MG TABLET.DR (DULCOLAX) PO SCH (09:00)
[2019-03-22] MEDS: DOCUSATE SODIUM 100 MG CAPSULE PO SCH (09:00)
[2019-03-22] MEDS ORDERED: ONDANSETRON HCL 4 MG/2 ML VIAL IVP PRN (14:30)
[2019-03-22] MEDS ORDERED: HYDROmorphone 1 MG INJ. 1 MG/ML AMPUL IVP PRN (14:30)
[2019-03-22] MEDS ORDERED: LR 500 ML IV ONE (16:00)
[2019-03-22 16:48] LABS: BASOPHILS # (AUTO) 0.1 K/uL (0.0-0.2); BASOPHILS % (AUTO) 0.4 % (0.0-2.0); EOSINOPHILS # (AUTO) 0.2 K/uL (0.0-0.4); EOSINOPHILS % (AUTO) 1.1 % (0.0-4.0); HEMATOCRIT 39.3 % (36-48); HEMOGLOBIN 12.7 g/dL (12.0-16.0); LYMPHOCYTES # (AUTO) 1.8 K/uL (1.0-5.5); LYMPHOCYTES % (AUTO) 11.6 % (20.5-51.5); MEAN CORPUSCULAR HEMOGLOBIN 25 pg (27-31); MEAN CORPUSCULAR HGB CONC 32 % (32-36); MEAN CORPUSCULAR VOLUME 79 fL (79.0-98.0); MONOCYTES # (AUTO) 0.3 K/uL (0.0-1.0); MONOCYTES % (AUTO) 2.2 % (1.7-9.3); NEUTROPHILS # (AUTO) 13.4 K/uL (1.8-7.7); NEUTROPHILS % (AUTO) 84.7 % (40.0-70.0); PLATELET COUNT (AUTO) 320 K/uL (130-430); RED CELL DISTRIBUTION WIDTH 14.6 % (9.0-15.0); WHITE BLOOD COUNT (AUTO) 15.8 K/uL (4.8-10.8)
[2019-03-22] MEDS ORDERED: ALBUMIN HUMAN 5% 250 ML IV ONE (17:00)
[2019-03-22] MEDS ORDERED: INSULIN REGULAR, HUMAN 100 UNITS/ML, 10 ML VIAL SUBCUT ONE (17:00)
[2019-03-22 17:03] LABS: ALBUMIN 2.8 g/dL (3.4-4.8); CALCIUM 7.8 mg/dL (8.4-11.0); CREATININE 1.1 mg/dL (0.55-1.30); POTASSIUM 4.4 mmol/L (3.5-5.1); TOTAL BILIRUBIN 0.3 mg/dL (0.0-1.0)
[2019-03-22] MEDS ORDERED: INSULIN REGULAR, HUMAN 100 UNITS/ML, 10 ML VIAL (humuLIN R) ONE (17:23)
[2019-03-22] MEDS ORDERED: NOREPINEPHRINE 4 MG/4 ML VIAL IV ONE (19:03)
[2019-03-22] MEDS: ENOXAPARIN SODIUM 40 MG/0.4 ML SYRINGE SUBCUT SCH (21:00)
[2019-03-22] MEDS: SENNOSIDES 8.6 MG TABLET PO SCH (22:30)
[2019-03-22] MEDS: MIRTAZAPINE 15 MG TABLET PO SCH (22:30)
[2019-03-23] VITALS (23 sets, daily range): BP systolic 76–136
[2019-03-23] MEDS: 0.45% NS 1,000 ML IV SCH ×2 (00:30→12:34)
[2019-03-23] MEDS: DOCUSATE SODIUM 100 MG CAPSULE PO SCH ×3 (00:40→21:17)
[2019-03-23] MEDS: CEFEPIME 1 GM in D5W 50 ML IV SCH ×2 (00:40→22:14)
[2019-03-23] MEDS: OXYBUTYNIN CHLORIDE 5 MG TABLET PO SCH ×3 (00:43→21:16)
[2019-03-23] MEDS: ATORVASTATIN 10 MG TABLET PO SCH ×3 (00:43→21:16)
[2019-03-23] MEDS: BISACODYL 5 MG TABLET.DR (DULCOLAX) PO SCH ×4 (00:43→21:17)
[2019-03-23] MEDS: GABAPENTIN 100 MG CAPSULE PO SCH ×5 (00:43→21:17)
[2019-03-23] MEDS: LEVOTHYROXINE SODIUM 0.1 MG TABLET PO SCH (08:31)
[2019-03-23] MEDS: NYSTATIN/TRIAMCIN 15 GM TOPICAL CREAM TP SCH ×2 (09:00→21:00)
[2019-03-23] MEDS: CITALOPRAM HYDROBROMIDE 20 MG TABLET PO SCH (09:42)
[2019-03-23] MEDS: INSULIN GLARGINE 100 UNITS/ML 10 ML VIAL SUBCUT SCH ×2 (09:44→21:06)
[2019-03-23] MEDS: INSULIN REGULAR, HUMAN 100 UNITS/ML, 10 ML VIAL (humuLIN R) SUBCUT PRN ×4 (09:46→21:05)
[2019-03-23] MEDS: MUPIROCIN 2% TOPICAL OINTMENT 22 GM TP SCH (12:23)
[2019-03-23] MEDS: FENOFIBRATE NANOCRYSTALLIZED 48 MG TABLET (TRICOR) PO SCH (12:23)
[2019-03-23] MEDS: LORazepam 1 MG TABLET PO PRN (14:07)
[2019-03-23] MEDS: traMADol HCL HCL 50 MG TABLET (ULTRAM) PO PRN (14:07)
[2019-03-23] MEDS: FLOVENT INH SCH (21:00)
[2019-03-23] MEDS: MIRTAZAPINE 15 MG TABLET PO SCH ×2 (21:00→21:16)
[2019-03-23] MEDS: SENNOSIDES 8.6 MG TABLET PO SCH ×2 (21:00→21:17)
[2019-03-23] MEDS: NOREPINEPHRINE BITARTRATE 4 MG in D5W 246 ML IV PRN (21:13)
[2019-03-23] MEDS: ENOXAPARIN SODIUM 40 MG/0.4 ML SYRINGE SUBCUT SCH (21:15)
[2019-03-24] VITALS (24 sets, daily range): BP systolic 87–131
[2019-03-24] MEDS: 0.45% NS 1,000 ML IV SCH ×2 (01:47→13:05)
[2019-03-24] MEDS: traMADol HCL HCL 50 MG TABLET (ULTRAM) PO PRN ×2 (01:52→23:48)
[2019-03-24] MEDS: LEVOTHYROXINE SODIUM 0.1 MG TABLET PO SCH (06:06)
[2019-03-24] MEDS: ACETAMINOPHEN 325 MG TABLET PO PRN (06:06)
[2019-03-24] MEDS: INSULIN REGULAR, HUMAN 100 UNITS/ML, 10 ML VIAL (humuLIN R) SUBCUT PRN ×2 (06:22→21:28)
[2019-03-24] MEDS: NYSTATIN/TRIAMCIN 15 GM TOPICAL CREAM TP SCH ×2 (08:09→20:36)
[2019-03-24] MEDS: MUPIROCIN 2% TOPICAL OINTMENT 22 GM TP SCH (08:10)
[2019-03-24] MEDS: OXYBUTYNIN CHLORIDE 5 MG TABLET PO SCH ×2 (08:11→20:34)
[2019-03-24] MEDS: DOCUSATE SODIUM 100 MG CAPSULE PO SCH ×2 (08:11→20:33)
[2019-03-24] MEDS: CITALOPRAM HYDROBROMIDE 20 MG TABLET PO SCH (08:11)
[2019-03-24] MEDS: BISACODYL 5 MG TABLET.DR (DULCOLAX) PO SCH ×2 (08:12→20:34)
[2019-03-24] MEDS: GABAPENTIN 100 MG CAPSULE PO SCH ×3 (08:12→20:34)
[2019-03-24] MEDS: FENOFIBRATE NANOCRYSTALLIZED 48 MG TABLET (TRICOR) PO SCH (08:13)
[2019-03-24] MEDS: INSULIN GLARGINE 100 UNITS/ML 10 ML VIAL SUBCUT SCH ×2 (08:17→20:35)
[2019-03-24] MEDS: FLOVENT INH SCH ×2 (09:00→21:00)
[2019-03-24 10:05] LABS: BASOPHILS # (AUTO) 0.2 K/uL (0.0-0.2); BASOPHILS % (AUTO) 1.3 % (0.0-2.0); EOSINOPHILS # (AUTO) 0.7 K/uL (0.0-0.4); EOSINOPHILS % (AUTO) 5.3 % (0.0-4.0); HEMATOCRIT 36.7 % (36-48); HEMOGLOBIN 11.9 g/dL (12.0-16.0); LYMPHOCYTES # (AUTO) 4.7 K/uL (1.0-5.5); LYMPHOCYTES % (AUTO) 33.8 % (20.5-51.5); MEAN CORPUSCULAR HEMOGLOBIN 25 pg (27-31); MEAN CORPUSCULAR HGB CONC 33 % (32-36); MEAN CORPUSCULAR VOLUME 78 fL (79.0-98.0); MONOCYTES # (AUTO) 0.9 K/uL (0.0-1.0); MONOCYTES % (AUTO) 6.6 % (1.7-9.3); NEUTROPHILS # (AUTO) 7.3 K/uL (1.8-7.7); PLATELET COUNT (AUTO) 341 K/uL (130-430); RED BLOOD CELL COUNT(AUTO) 4.69 MIL/uL (4.2-6.2); RED CELL DISTRIBUTION WIDTH 14.4 % (9.0-15.0); WHITE BLOOD COUNT (AUTO) 13.8 K/uL (4.8-10.8)
[2019-03-24 10:14] LABS: CALCIUM 8.2 mg/dL (8.4-11.0); CREATININE 0.9 mg/dL (0.55-1.30); POTASSIUM 3.4 mmol/L (3.5-5.1)
[2019-03-24] MEDS: NOREPINEPHRINE BITARTRATE 4 MG in D5W 246 ML IV PRN (11:32)
[2019-03-24] MEDS: CEFEPIME 1 GM in D5W 50 ML IV SCH (20:33)
[2019-03-24] MEDS: MIRTAZAPINE 15 MG TABLET PO SCH (20:34)
[2019-03-24] MEDS: ATORVASTATIN 10 MG TABLET PO SCH (20:34)
[2019-03-24] MEDS: ENOXAPARIN SODIUM 40 MG/0.4 ML SYRINGE SUBCUT SCH (20:35)
[2019-03-24] MEDS: SENNOSIDES 8.6 MG TABLET PO SCH (20:35)
[2019-03-25] VITALS (24 sets, daily range): BP systolic 77–134
[2019-03-25] MEDS: ACETAMINOPHEN 325 MG TABLET PO PRN (02:00)
[2019-03-25] MEDS: 0.45% NS 1,000 ML IV SCH ×2 (02:01→15:45)
[2019-03-25] MEDS: NOREPINEPHRINE BITARTRATE 4 MG in D5W 246 ML IV PRN (03:59)
[2019-03-25] MEDS: LEVOTHYROXINE SODIUM 0.1 MG TABLET PO SCH (06:20)
[2019-03-25] MEDS: INSULIN REGULAR, HUMAN 100 UNITS/ML, 10 ML VIAL (humuLIN R) SUBCUT PRN ×4 (06:22→20:23)
[2019-03-25 06:39] LABS: BASOPHILS # (AUTO) 0.2 K/uL (0.0-0.2); BASOPHILS % (AUTO) 1.3 % (0.0-2.0); EOSINOPHILS # (AUTO) 0.9 K/uL (0.0-0.4); EOSINOPHILS % (AUTO) 6.9 % (0.0-4.0); HEMATOCRIT 35.4 % (36-48); HEMOGLOBIN 11.8 g/dL (12.0-16.0); LYMPHOCYTES # (AUTO) 4.3 K/uL (1.0-5.5); LYMPHOCYTES % (AUTO) 32.6 % (20.5-51.5); MEAN CORPUSCULAR HEMOGLOBIN 26 pg (27-31); MEAN CORPUSCULAR HGB CONC 33 % (32-36); MEAN CORPUSCULAR VOLUME 78 fL (79.0-98.0); MONOCYTES # (AUTO) 0.9 K/uL (0.0-1.0); MONOCYTES % (AUTO) 6.6 % (1.7-9.3); NEUTROPHILS # (AUTO) 6.9 K/uL (1.8-7.7); NEUTROPHILS % (AUTO) 52.6 % (40.0-70.0); PLATELET COUNT (AUTO) 339 K/uL (130-430); RED BLOOD CELL COUNT(AUTO) 4.52 MIL/uL (4.2-6.2); RED CELL DISTRIBUTION WIDTH 14.4 % (9.0-15.0); WHITE BLOOD COUNT (AUTO) 13.1 K/uL (4.8-10.8)
[2019-03-25 07:06] LABS: CALCIUM 8.2 mg/dL (8.4-11.0); CREATININE 0.86 mg/dL (0.55-1.30); POTASSIUM 3.4 mmol/L (3.5-5.1)
[2019-03-25] MEDS: INSULIN GLARGINE 100 UNITS/ML 10 ML VIAL SUBCUT SCH ×2 (09:00→20:24)
[2019-03-25] MEDS: GABAPENTIN 100 MG CAPSULE PO SCH ×3 (09:00→20:15)
[2019-03-25] MEDS: BISACODYL 5 MG TABLET.DR (DULCOLAX) PO SCH ×2 (09:00→20:35)
[2019-03-25] MEDS: MUPIROCIN 2% TOPICAL OINTMENT 22 GM TP SCH (09:00)
[2019-03-25] MEDS: CITALOPRAM HYDROBROMIDE 20 MG TABLET PO SCH ×2 (09:00→16:41)
[2019-03-25] MEDS: OXYBUTYNIN CHLORIDE 5 MG TABLET PO SCH ×2 (09:00→20:16)
[2019-03-25] MEDS: DOCUSATE SODIUM 100 MG CAPSULE PO SCH ×2 (09:00→20:16)
[2019-03-25] MEDS: NYSTATIN/TRIAMCIN 15 GM TOPICAL CREAM TP SCH ×2 (09:00→20:35)
[2019-03-25] MEDS: FENOFIBRATE NANOCRYSTALLIZED 48 MG TABLET (TRICOR) PO SCH (09:00)
[2019-03-25] MEDS: traMADol HCL HCL 50 MG TABLET (ULTRAM) PO PRN (13:14)
[2019-03-25] MEDS: IBUPROFEN 600 MG TABLET PO PRN (18:29)
[2019-03-25] MEDS: SENNOSIDES 8.6 MG TABLET PO SCH (20:15)
[2019-03-25] MEDS: MIRTAZAPINE 15 MG TABLET PO SCH (20:16)
[2019-03-25] MEDS: ENOXAPARIN SODIUM 40 MG/0.4 ML SYRINGE SUBCUT SCH (20:17)
[2019-03-25] MEDS: CEFEPIME 1 GM in D5W 50 ML IV SCH (20:35)
[2019-03-25] MEDS: ATORVASTATIN 10 MG TABLET PO SCH (20:35)
[2019-03-26] VITALS (22 sets, daily range): BP systolic 67–134
[2019-03-26] MEDS: 0.45% NS 1,000 ML IV SCH ×2 (05:08→19:48)
[2019-03-26] MEDS: LEVOTHYROXINE SODIUM 0.1 MG TABLET PO SCH (06:51)
[2019-03-26] MEDS: INSULIN REGULAR, HUMAN 100 UNITS/ML, 10 ML VIAL (humuLIN R) SUBCUT PRN ×3 (06:59→17:03)
[2019-03-26] MEDS: BISACODYL 5 MG TABLET.DR (DULCOLAX) PO SCH ×2 (08:43→21:00)
[2019-03-26] MEDS: OXYBUTYNIN CHLORIDE 5 MG TABLET PO SCH ×2 (08:43→21:00)
[2019-03-26] MEDS: FENOFIBRATE NANOCRYSTALLIZED 48 MG TABLET (TRICOR) PO SCH (08:43)
[2019-03-26] MEDS: CITALOPRAM HYDROBROMIDE 20 MG TABLET PO SCH (08:44)
[2019-03-26] MEDS: DOCUSATE SODIUM 100 MG CAPSULE PO SCH ×2 (08:44→21:00)
[2019-03-26] MEDS ORDERED: DOCUSATE SODIUM 100 MG CAPSULE PO ONE (08:45)
[2019-03-26] MEDS: GABAPENTIN 100 MG CAPSULE PO SCH ×3 (08:46→21:00)
[2019-03-26] MEDS: MUPIROCIN 2% TOPICAL OINTMENT 22 GM TP SCH (08:49)
[2019-03-26] MEDS: INSULIN GLARGINE 100 UNITS/ML 10 ML VIAL SUBCUT SCH ×2 (08:55→21:00)
[2019-03-26] MEDS: NYSTATIN/TRIAMCIN 15 GM TOPICAL CREAM TP SCH ×2 (08:59→22:17)
[2019-03-26] MEDS: MIRTAZAPINE 15 MG TABLET PO SCH (21:00)
[2019-03-26] MEDS: ENOXAPARIN SODIUM 40 MG/0.4 ML SYRINGE SUBCUT SCH (21:00)
[2019-03-26] MEDS: ATORVASTATIN 10 MG TABLET PO SCH (21:00)
[2019-03-26] MEDS: SENNOSIDES 8.6 MG TABLET PO SCH (21:00)
[2019-03-27] VITALS (24 sets, daily range): BP systolic 89–159
[2019-03-27] MEDS: NOREPINEPHRINE BITARTRATE 4 MG in D5W 246 ML IV PRN ×2 (01:07→23:16)
[2019-03-27] MEDS: INSULIN REGULAR, HUMAN 100 UNITS/ML, 10 ML VIAL (humuLIN R) SUBCUT PRN ×4 (06:33→20:20)
[2019-03-27] MEDS: LEVOTHYROXINE SODIUM 0.1 MG TABLET PO SCH (06:36)
[2019-03-27] MEDS: 0.45% NS 1,000 ML IV SCH ×2 (07:45→20:29)
[2019-03-27] MEDS: BISACODYL 5 MG TABLET.DR (DULCOLAX) PO SCH ×2 (09:51→20:14)
[2019-03-27] MEDS: OXYBUTYNIN CHLORIDE 5 MG TABLET PO SCH ×2 (09:51→20:14)
[2019-03-27] MEDS: DOCUSATE SODIUM 100 MG CAPSULE PO SCH ×2 (09:52→20:14)
[2019-03-27] MEDS: GABAPENTIN 100 MG CAPSULE PO SCH ×3 (09:52→20:15)
[2019-03-27] MEDS: CITALOPRAM HYDROBROMIDE 20 MG TABLET PO SCH (09:52)
[2019-03-27] MEDS: FENOFIBRATE NANOCRYSTALLIZED 48 MG TABLET (TRICOR) PO SCH (09:53)
[2019-03-27] MEDS: NYSTATIN/TRIAMCIN 15 GM TOPICAL CREAM TP SCH ×2 (09:55→20:15)
[2019-03-27] MEDS: MUPIROCIN 2% TOPICAL OINTMENT 22 GM TP SCH (09:55)
[2019-03-27] MEDS: INSULIN GLARGINE 100 UNITS/ML 10 ML VIAL SUBCUT SCH ×2 (10:02→20:19)
[2019-03-27] MEDS: MIRTAZAPINE 15 MG TABLET PO SCH (20:14)
[2019-03-27] MEDS: ATORVASTATIN 10 MG TABLET PO SCH (20:15)
[2019-03-27] MEDS: SENNOSIDES 8.6 MG TABLET PO SCH (20:15)
[2019-03-27] MEDS: ENOXAPARIN SODIUM 40 MG/0.4 ML SYRINGE SUBCUT SCH (20:17)
[2019-03-27] MEDS: traMADol HCL HCL 50 MG TABLET (ULTRAM) PO PRN (22:05)
[2019-03-28] VITALS (22 sets, daily range): BP systolic 82–158
[2019-03-28] MEDS: LEVOTHYROXINE SODIUM 0.1 MG TABLET PO SCH (06:06)
[2019-03-28] MEDS: INSULIN REGULAR, HUMAN 100 UNITS/ML, 10 ML VIAL (humuLIN R) SUBCUT PRN ×3 (06:11→20:27)
[2019-03-28] MEDS: BISACODYL 5 MG TABLET.DR (DULCOLAX) PO SCH ×2 (09:00→20:21)
[2019-03-28] MEDS: DOCUSATE SODIUM 100 MG CAPSULE PO SCH ×2 (09:00→20:32)
[2019-03-28] MEDS: GABAPENTIN 100 MG CAPSULE PO SCH ×3 (09:17→20:21)
[2019-03-28] MEDS: OXYBUTYNIN CHLORIDE 5 MG TABLET PO SCH ×2 (09:18→20:21)
[2019-03-28] MEDS: CITALOPRAM HYDROBROMIDE 20 MG TABLET PO SCH (09:18)
[2019-03-28] MEDS: FENOFIBRATE NANOCRYSTALLIZED 48 MG TABLET (TRICOR) PO SCH (09:18)
[2019-03-28] MEDS: MUPIROCIN 2% TOPICAL OINTMENT 22 GM TP SCH (09:19)
[2019-03-28] MEDS: NYSTATIN/TRIAMCIN 15 GM TOPICAL CREAM TP SCH ×2 (09:19→20:38)
[2019-03-28] MEDS: 0.45% NS 1,000 ML IV SCH ×2 (09:27→23:19)
[2019-03-28] MEDS: INSULIN GLARGINE 100 UNITS/ML 10 ML VIAL SUBCUT SCH ×2 (09:29→20:26)
[2019-03-28] MEDS: NOREPINEPHRINE BITARTRATE 4 MG in D5W 246 ML IV PRN (17:15)
[2019-03-28] MEDS: MIRTAZAPINE 15 MG TABLET PO SCH (20:20)
[2019-03-28] MEDS: SENNOSIDES 8.6 MG TABLET PO SCH (20:21)
[2019-03-28] MEDS: ATORVASTATIN 10 MG TABLET PO SCH (20:21)
[2019-03-28] MEDS: ENOXAPARIN SODIUM 40 MG/0.4 ML SYRINGE SUBCUT SCH (20:26)
[2019-03-28] MEDS: traMADol HCL HCL 50 MG TABLET (ULTRAM) PO PRN (23:20)
[2019-03-28] MEDS ORDERED: metroNIDAZOLE 500 mg/NS 200 ML IV ONE (23:58)
[2019-03-28] MEDS ORDERED: MEROPENEM 1 GM VIAL IV ONE (23:58)
[2019-03-29] VITALS (24 sets, daily range): BP systolic 84–147
[2019-03-29] MEDS: MEROPENEM 1 GM IVPB PREMIX 50 ML IV SCH ×4 (00:25→20:41)
[2019-03-29] MEDS: metroNIDAZOLE 500 mg/NS 100 ML IV SCH ×3 (00:26→14:06)
[2019-03-29] MEDS: INSULIN REGULAR, HUMAN 100 UNITS/ML, 10 ML VIAL (humuLIN R) SUBCUT PRN ×3 (06:11→20:38)
[2019-03-29] MEDS: LEVOTHYROXINE SODIUM 0.1 MG TABLET PO SCH (06:11)
[2019-03-29 06:40] LABS: BASOPHILS # (AUTO) 0.1 K/uL (0.0-0.2); BASOPHILS % (AUTO) 1.1 % (0.0-2.0); EOSINOPHILS # (AUTO) 0.5 K/uL (0.0-0.4); EOSINOPHILS % (AUTO) 4.5 % (0.0-4.0); HEMATOCRIT 35.6 % (36-48); HEMOGLOBIN 11.7 g/dL (12.0-16.0); LYMPHOCYTES # (AUTO) 3.7 K/uL (1.0-5.5); LYMPHOCYTES % (AUTO) 32.4 % (20.5-51.5); MEAN CORPUSCULAR HEMOGLOBIN 26 pg (27-31); MEAN CORPUSCULAR HGB CONC 33 % (32-36); MEAN CORPUSCULAR VOLUME 78 fL (79.0-98.0); MONOCYTES # (AUTO) 0.6 K/uL (0.0-1.0); MONOCYTES % (AUTO) 5.5 % (1.7-9.3); NEUTROPHILS # (AUTO) 6.5 K/uL (1.8-7.7); NEUTROPHILS % (AUTO) 56.5 % (40.0-70.0); PLATELET COUNT (AUTO) 316 K/uL (130-430); RED BLOOD CELL COUNT(AUTO) 4.56 MIL/uL (4.2-6.2); RED CELL DISTRIBUTION WIDTH 14.5 % (9.0-15.0); WHITE BLOOD COUNT (AUTO) 11.5 K/uL (4.8-10.8)
[2019-03-29 07:58] LABS: CALCIUM 8.5 mg/dL (8.4-11.0); POTASSIUM 3.6 mmol/L (3.5-5.1)
[2019-03-29] MEDS: GABAPENTIN 100 MG CAPSULE PO SCH ×3 (08:01→20:40)
[2019-03-29] MEDS: OXYBUTYNIN CHLORIDE 5 MG TABLET PO SCH ×2 (08:01→20:39)
[2019-03-29] MEDS: CITALOPRAM HYDROBROMIDE 20 MG TABLET PO SCH (08:05)
[2019-03-29] MEDS: DOCUSATE SODIUM 100 MG CAPSULE PO SCH ×2 (08:05→20:39)
[2019-03-29] MEDS: FENOFIBRATE NANOCRYSTALLIZED 48 MG TABLET (TRICOR) PO SCH (08:05)
[2019-03-29] MEDS: BISACODYL 5 MG TABLET.DR (DULCOLAX) PO SCH ×2 (08:05→20:40)
[2019-03-29] MEDS: MUPIROCIN 2% TOPICAL OINTMENT 22 GM TP SCH (08:10)
[2019-03-29] MEDS: INSULIN GLARGINE 100 UNITS/ML 10 ML VIAL SUBCUT SCH ×2 (08:10→20:37)
[2019-03-29] MEDS: NYSTATIN/TRIAMCIN 15 GM TOPICAL CREAM TP SCH ×2 (08:11→20:43)
[2019-03-29] MEDS ORDERED: CITALOPRAM HYDROBROMIDE 20 MG TABLET ONE (08:19)
[2019-03-29] MEDS ORDERED: NS 500 ML IV ONE (09:30)
[2019-03-29] MEDS: NOREPINEPHRINE BITARTRATE 4 MG in D5W 246 ML IV PRN (09:30)
[2019-03-29] MEDS: 0.45% NS 1,000 ML IV SCH (14:07)
[2019-03-29] MEDS: FLUCONAZOLE 100 mg/ NS 50 ML IV SCH (18:01)
[2019-03-29] MEDS: ENOXAPARIN SODIUM 40 MG/0.4 ML SYRINGE SUBCUT SCH (20:36)
[2019-03-29] MEDS: SENNOSIDES 8.6 MG TABLET PO SCH (20:40)
[2019-03-29] MEDS: ATORVASTATIN 10 MG TABLET PO SCH (20:40)
[2019-03-29] MEDS: MIRTAZAPINE 15 MG TABLET PO SCH (20:40)
[2019-03-30] VITALS (19 sets, daily range): BP systolic 90–152
[2019-03-30] MEDS: 0.45% NS 1,000 ML IV SCH ×3 (02:25→22:09)
[2019-03-30] MEDS: MEROPENEM 1 GM IVPB PREMIX 50 ML IV SCH ×3 (05:40→22:14)
[2019-03-30] MEDS: LEVOTHYROXINE SODIUM 0.1 MG TABLET PO SCH (06:02)
[2019-03-30] MEDS: INSULIN REGULAR, HUMAN 100 UNITS/ML, 10 ML VIAL (humuLIN R) SUBCUT PRN ×4 (06:04→22:17)
[2019-03-30] MEDS: NOREPINEPHRINE BITARTRATE 4 MG in D5W 246 ML IV PRN (06:09)
[2019-03-30] MEDS ORDERED: NOREPINEPHRINE 4 MG/4 ML VIAL IV ONE (06:15)
[2019-03-30 07:04] LABS: BASOPHILS # (AUTO) 0.1 K/uL (0.0-0.2); BASOPHILS % (AUTO) 0.8 % (0.0-2.0); EOSINOPHILS # (AUTO) 0.5 K/uL (0.0-0.4); EOSINOPHILS % (AUTO) 4.6 % (0.0-4.0); HEMATOCRIT 36.6 % (36-48); LYMPHOCYTES # (AUTO) 3.6 K/uL (1.0-5.5); LYMPHOCYTES % (AUTO) 31.8 % (20.5-51.5); MEAN CORPUSCULAR HEMOGLOBIN 26 pg (27-31); MEAN CORPUSCULAR HGB CONC 33 % (32-36); MEAN CORPUSCULAR VOLUME 78 fL (79.0-98.0); MONOCYTES # (AUTO) 0.8 K/uL (0.0-1.0); MONOCYTES % (AUTO) 6.7 % (1.7-9.3); NEUTROPHILS # (AUTO) 6.3 K/uL (1.8-7.7); NEUTROPHILS % (AUTO) 56.1 % (40.0-70.0); PLATELET COUNT (AUTO) 315 K/uL (130-430); RED BLOOD CELL COUNT(AUTO) 4.67 MIL/uL (4.2-6.2); RED CELL DISTRIBUTION WIDTH 14.7 % (9.0-15.0); WHITE BLOOD COUNT (AUTO) 11.3 K/uL (4.8-10.8)
[2019-03-30 07:17] LABS: CALCIUM 8.5 mg/dL (8.4-11.0); CREATININE 0.96 mg/dL (0.55-1.30); POTASSIUM 3.9 mmol/L (3.5-5.1)
[2019-03-30] MEDS: FENOFIBRATE NANOCRYSTALLIZED 48 MG TABLET (TRICOR) PO SCH (09:00)
[2019-03-30] MEDS: DOCUSATE SODIUM 100 MG CAPSULE PO SCH ×3 (09:00→21:47)
[2019-03-30] MEDS: MUPIROCIN 2% TOPICAL OINTMENT 22 GM TP SCH (09:00)
[2019-03-30] MEDS: NYSTATIN/TRIAMCIN 15 GM TOPICAL CREAM TP SCH ×2 (09:00→21:00)
[2019-03-30] MEDS ORDERED: NS 500 ML IV ONE (09:00)
[2019-03-30] MEDS: OXYBUTYNIN CHLORIDE 5 MG TABLET PO SCH ×2 (10:28→21:45)
[2019-03-30] MEDS: GABAPENTIN 100 MG CAPSULE PO SCH ×3 (10:28→21:47)
[2019-03-30] MEDS: CITALOPRAM HYDROBROMIDE 20 MG TABLET PO SCH (10:29)
[2019-03-30] MEDS: BISACODYL 5 MG TABLET.DR (DULCOLAX) PO SCH ×2 (10:50→21:00)
[2019-03-30] MEDS: INSULIN GLARGINE 100 UNITS/ML 10 ML VIAL SUBCUT SCH ×3 (10:50→21:56)
[2019-03-30] MEDS: FLUCONAZOLE 100 mg/ NS 50 ML IV SCH (18:35)
[2019-03-30] MEDS: ATORVASTATIN 10 MG TABLET PO SCH (21:47)
[2019-03-30] MEDS: MIRTAZAPINE 15 MG TABLET PO SCH (21:47)
[2019-03-30] MEDS: SENNOSIDES 8.6 MG TABLET PO SCH (21:47)
[2019-03-30] MEDS: ENOXAPARIN SODIUM 40 MG/0.4 ML SYRINGE SUBCUT SCH (21:54)
[2019-03-31 04:18] VITALS: BP_SYST 129
[2019-03-31] MEDS: 0.45% NS 1,000 ML IV SCH ×2 (04:59→16:14)
[2019-03-31] MEDS: MEROPENEM 1 GM IVPB PREMIX 50 ML IV SCH ×3 (06:41→21:49)
[2019-03-31] MEDS: LEVOTHYROXINE SODIUM 0.1 MG TABLET PO SCH (07:00)
[2019-03-31] MEDS: FLOVENT INH SCH ×2 (07:41→20:22)
[2019-03-31 08:00] VITALS: BP_SYST 136
[2019-03-31] MEDS: NYSTATIN/TRIAMCIN 15 GM TOPICAL CREAM TP SCH ×2 (08:31→21:00)
[2019-03-31] MEDS: MUPIROCIN 2% TOPICAL OINTMENT 22 GM TP SCH (08:31)
[2019-03-31] MEDS: OXYBUTYNIN CHLORIDE 5 MG TABLET PO SCH ×2 (08:34→20:27)
[2019-03-31] MEDS: FENOFIBRATE NANOCRYSTALLIZED 48 MG TABLET (TRICOR) PO SCH (08:34)
[2019-03-31] MEDS: DOCUSATE SODIUM 100 MG CAPSULE PO SCH ×2 (08:34→20:22)
[2019-03-31] MEDS: CITALOPRAM HYDROBROMIDE 20 MG TABLET PO SCH (08:34)
[2019-03-31] MEDS: GABAPENTIN 100 MG CAPSULE PO SCH ×3 (08:34→20:24)
[2019-03-31] MEDS: BISACODYL 5 MG TABLET.DR (DULCOLAX) PO SCH ×2 (08:34→20:23)
[2019-03-31] MEDS: INSULIN GLARGINE 100 UNITS/ML 10 ML VIAL SUBCUT SCH ×2 (08:36→22:00)
[2019-03-31 10:14] LABS: BASOPHILS # (AUTO) 0.1 K/uL (0.0-0.2); BASOPHILS % (AUTO) 0.9 % (0.0-2.0); EOSINOPHILS # (AUTO) 0.5 K/uL (0.0-0.4); EOSINOPHILS % (AUTO) 5.1 % (0.0-4.0); HEMATOCRIT 36.6 % (36-48); HEMOGLOBIN 11.7 g/dL (12.0-16.0); LYMPHOCYTES % (AUTO) 31.4 % (20.5-51.5); MEAN CORPUSCULAR HEMOGLOBIN 25 pg (27-31); MEAN CORPUSCULAR HGB CONC 32 % (32-36); MEAN CORPUSCULAR VOLUME 79 fL (79.0-98.0); MONOCYTES # (AUTO) 0.5 K/uL (0.0-1.0); NEUTROPHILS # (AUTO) 5.4 K/uL (1.8-7.7); NEUTROPHILS % (AUTO) 57.6 % (40.0-70.0); PLATELET COUNT (AUTO) 278 K/uL (130-430); RED BLOOD CELL COUNT(AUTO) 4.64 MIL/uL (4.2-6.2); WHITE BLOOD COUNT (AUTO) 9.5 K/uL (4.8-10.8)
[2019-03-31 10:18] LABS: CALCIUM 8.6 mg/dL (8.4-11.0); CREATININE 0.94 mg/dL (0.55-1.30); POTASSIUM 3.8 mmol/L (3.5-5.1)
[2019-03-31 12:38] VITALS: BP_SYST 120
[2019-03-31] MEDS: FLUCONAZOLE 100 mg/ NS 50 ML IV SCH (17:02)
[2019-03-31] MEDS: INSULIN REGULAR, HUMAN 100 UNITS/ML, 10 ML VIAL (humuLIN R) SUBCUT PRN ×2 (17:08→22:08)
[2019-03-31 17:30] VITALS: BP_SYST 127
[2019-03-31 20:00] VITALS: BP_SYST 125
[2019-03-31] MEDS: MIRTAZAPINE 15 MG TABLET PO SCH (20:24)
[2019-03-31] MEDS: SENNOSIDES 8.6 MG TABLET PO SCH (20:24)
[2019-03-31] MEDS: ATORVASTATIN 10 MG TABLET PO SCH (20:25)
[2019-03-31] MEDS: ENOXAPARIN SODIUM 40 MG/0.4 ML SYRINGE SUBCUT SCH (22:06)
[2019-03-31 22:40] VITALS: BP_SYST 129
[2019-04-01] MEDS: 0.45% NS 1,000 ML IV SCH ×4 (03:55→20:59)
[2019-04-01] MEDS: MEROPENEM 1 GM IVPB PREMIX 50 ML IV SCH ×4 (05:43→22:00)
[2019-04-01 06:37] LABS: BASOPHILS # (AUTO) 0.1 K/uL (0.0-0.2); BASOPHILS % (AUTO) 0.8 % (0.0-2.0); EOSINOPHILS # (AUTO) 0.4 K/uL (0.0-0.4); EOSINOPHILS % (AUTO) 4.8 % (0.0-4.0); HEMATOCRIT 33.9 % (36-48); LYMPHOCYTES # (AUTO) 3.6 K/uL (1.0-5.5); LYMPHOCYTES % (AUTO) 38.9 % (20.5-51.5); MEAN CORPUSCULAR HEMOGLOBIN 26 pg (27-31); MEAN CORPUSCULAR HGB CONC 33 % (32-36); MEAN CORPUSCULAR VOLUME 79 fL (79.0-98.0); MONOCYTES # (AUTO) 0.6 K/uL (0.0-1.0); MONOCYTES % (AUTO) 6.3 % (1.7-9.3); NEUTROPHILS # (AUTO) 4.6 K/uL (1.8-7.7); NEUTROPHILS % (AUTO) 49.2 % (40.0-70.0); PLATELET COUNT (AUTO) 256 K/uL (130-430); RED BLOOD CELL COUNT(AUTO) 4.26 MIL/uL (4.2-6.2); RED CELL DISTRIBUTION WIDTH 14.9 % (9.0-15.0); WHITE BLOOD COUNT (AUTO) 9.3 K/uL (4.8-10.8)
[2019-04-01] MEDS: LEVOTHYROXINE SODIUM 0.1 MG TABLET PO SCH (06:55)
[2019-04-01 08:00] VITALS: BP_SYST 121
[2019-04-01 08:18] LABS: CALCIUM 8.7 mg/dL (8.4-11.0); CREATININE 0.92 mg/dL (0.55-1.30); POTASSIUM 3.9 mmol/L (3.5-5.1)
[2019-04-01] MEDS: CITALOPRAM HYDROBROMIDE 20 MG TABLET PO SCH (08:49)
[2019-04-01] MEDS: DOCUSATE SODIUM 100 MG CAPSULE PO SCH ×2 (08:49→23:16)
[2019-04-01] MEDS: FLOVENT INH SCH ×2 (08:49→21:00)
[2019-04-01] MEDS: BISACODYL 5 MG TABLET.DR (DULCOLAX) PO SCH ×2 (08:49→23:17)
[2019-04-01] MEDS: GABAPENTIN 100 MG CAPSULE PO SCH ×3 (08:50→23:17)
[2019-04-01] MEDS: FENOFIBRATE NANOCRYSTALLIZED 48 MG TABLET (TRICOR) PO SCH (08:50)
[2019-04-01] MEDS: OXYBUTYNIN CHLORIDE 5 MG TABLET PO SCH ×2 (08:50→23:17)
[2019-04-01] MEDS: MUPIROCIN 2% TOPICAL OINTMENT 22 GM TP SCH (08:51)
[2019-04-01] MEDS: NYSTATIN/TRIAMCIN 15 GM TOPICAL CREAM TP SCH ×2 (08:51→21:00)
[2019-04-01] MEDS: INSULIN GLARGINE 100 UNITS/ML 10 ML VIAL SUBCUT SCH ×2 (08:51→21:00)
[2019-04-01] MEDS: IBUPROFEN 600 MG TABLET PO PRN (10:56)
[2019-04-01 12:00] VITALS: BP_SYST 154
[2019-04-01 16:00] VITALS: BP_SYST 150
[2019-04-01] MEDS: FLUCONAZOLE 100 mg/ NS 50 ML IV SCH (17:17)
[2019-04-01] MEDS: INSULIN REGULAR, HUMAN 100 UNITS/ML, 10 ML VIAL (humuLIN R) SUBCUT PRN (17:17)
[2019-04-01] MEDS ORDERED: traMADol HCL HCL 50 MG TABLET (ULTRAM) PO PRN (19:00)
[2019-04-01 20:00] VITALS: BP_SYST 124
[2019-04-01] MEDS: ENOXAPARIN SODIUM 40 MG/0.4 ML SYRINGE SUBCUT SCH (21:00)
[2019-04-01] MEDS: ATORVASTATIN 10 MG TABLET PO SCH (23:17)
[2019-04-01] MEDS: MIRTAZAPINE 15 MG TABLET PO SCH (23:17)
[2019-04-01] MEDS: SENNOSIDES 8.6 MG TABLET PO SCH (23:27)
[2019-04-02] VITALS (8 sets, daily range): BP systolic 87–145
[2019-04-02] MEDS: MEROPENEM 1 GM IVPB PREMIX 50 ML IV SCH ×2 (06:45→13:15)
[2019-04-02] MEDS: LEVOTHYROXINE SODIUM 0.1 MG TABLET PO SCH (06:47)
[2019-04-02] MEDS: 0.45% NS 1,000 ML IV SCH ×2 (08:40→13:16)
[2019-04-02] MEDS: FLOVENT INH SCH (08:40)
[2019-04-02] MEDS: DOCUSATE SODIUM 100 MG CAPSULE PO SCH ×2 (08:48→08:52)
[2019-04-02] MEDS: GABAPENTIN 100 MG CAPSULE PO SCH ×2 (08:48→14:36)
[2019-04-02] MEDS: CITALOPRAM HYDROBROMIDE 20 MG TABLET PO SCH (08:48)
[2019-04-02] MEDS: BISACODYL 5 MG TABLET.DR (DULCOLAX) PO SCH (08:48)
[2019-04-02] MEDS: OXYBUTYNIN CHLORIDE 5 MG TABLET PO SCH (08:48)
[2019-04-02] MEDS: FENOFIBRATE NANOCRYSTALLIZED 48 MG TABLET (TRICOR) PO SCH (08:48)
[2019-04-02] MEDS: INSULIN GLARGINE 100 UNITS/ML 10 ML VIAL SUBCUT SCH (08:50)
[2019-04-02] MEDS: NYSTATIN/TRIAMCIN 15 GM TOPICAL CREAM TP SCH (08:50)
[2019-04-02] MEDS: MUPIROCIN 2% TOPICAL OINTMENT 22 GM TP SCH (08:50)
[2019-04-02] MEDS: ACETAMINOPHEN 325 MG TABLET PO PRN (09:54)
[2019-04-02] MEDS: INSULIN REGULAR, HUMAN 100 UNITS/ML, 10 ML VIAL (humuLIN R) SUBCUT PRN ×2 (11:10→17:46)
[2019-04-02] MEDS ORDERED: NS 500 ML IV ONE (16:00)
[2019-04-02] MEDS: FLUCONAZOLE 100 mg/ NS 50 ML IV SCH (18:03)
[2019-04-03] MEDS ORDERED: PIPERACILLIN/TAZO 2.25G/DEX-IS 50 ML IV SCH
== END 2019-04-02 21:02 | DRG 853 ==
LOC: STU 21:58 → SMU 23:37 → SIC 03-22 18:41 → STU 03-30 19:36
PROVIDERS: ADMIT Family Medicine; ATTEND Family Medicine
PROC: 0HBT0ZZ Excision of Right Breast, Open Approach (ICD-10-PCS; 2019-03-22)
PROC: 07B50ZX Excision of Right Axillary Lymphatic, Open Approach, Diagnostic (ICD-10-PCS; principal; 2019-03-22 13:30)
PROC: 02HV33Z Insertion of Infusion Device into Superior Vena Cava, Percutaneous Approach (ICD-10-PCS; 2019-03-29)
DX: A41.9 Sepsis, unspecified organism (principal); G93.41 Metabolic encephalopathy; E11.00 Type 2 diabetes mellitus with hyperosmolarity without nonketotic hyperglycemic-hyperosmolar coma (NKHHC); R65.21 Severe sepsis with septic shock; N39.0 Urinary tract infection, site not specified; Z68.42 Body mass index [BMI] 45.0-49.9, adult; C50.911 Malignant neoplasm of unspecified site of right female breast; N63.10 Unspecified lump in the right breast, unspecified quadrant; E03.9 Hypothyroidism, unspecified; E66.01 Morbid (severe) obesity due to excess calories; E78.5 Hyperlipidemia, unspecified; E11.9 Type 2 diabetes mellitus without complications; I10 Essential (primary) hypertension; M19.90 Unspecified osteoarthritis, unspecified site; Z79.899 Other long term (current) drug therapy; Z88.8 Allergy status to other drugs, medicaments and biological substances; Z90.49 Acquired absence of other specified parts of digestive tract; Z80.3 Family history of malignant neoplasm of breast; Z79.4 Long term (current) use of insulin; B96.20 Unspecified Escherichia coli [E. coli] as the cause of diseases classified elsewhere
CPT/HCPCS: 36415; 71045; 78195; 80048; 80053; 81000-TC; 82948; 82962; 83735-TC; 85025; 85610-TC; 85730-TC; 86300; 86886; 86900; 86901; 87040-TC; 87081; 87086; 87186-TC; 88307; 88341; 88342; 93005; 93306; 97110-GP; 97116-GP; A9541; G0378; J0330; J0692; J1100; J1170; J1450; J1650; J1815; J1885; J2185; J2405; J2704; J3010; J3490; J7030; J7040; J7060; J7120; P9041; Q9968

== ENCOUNTER 2019-05-08 23:23 | Inpatient (IN) | payer OTHER, MEDICAID ==
[~2019-05-08] VITALS: Ht 154.9 cm; Wt 103.0 kg
[2019-05-08 23:23] VITALS: BP_SYST 122
[~2019-05-08 23:23] MED LIST changes: -DEXAMETHASONE SOD PHOSPHATE 4 MG/ML VIAL IVP ONE; -FURO-150 PO; -HYDROmorphone 2 MG/ML VIAL IVP ONE; -ISOFLURANE 15 MIN GAS INH ONE; -ISOSULFAN BLUE 5 ML VIAL (LYMPHAZURIN) INJ ONE; -KETOROLAC TROMETHAMINE 30 MG VIAL IVP ONE; -LABETALOL 100 MG/ 20ML VIAL IVP ONE; -NS 1000 ML IV.SOLN IV ONE; -ONDANSETRON HCL 4 MG/2 ML VIAL IVP ONE; -PROPOFOL 200MG/ 20ML VIAL (DIPRIVAN) IV ONE; -SSREG SUBCUT; -SUCCINYLCHOLINE CHLORIDE 20 MG/ML(QUELICIN) IVP ONE; -fentaNYL CITRATE/PF 100 MCG/2 ML AMP IVP ONE
[2019-05-09] MEDS ORDERED: NACL 0.9% 1,000 ML IV ONE (00:27)
[2019-05-09 02:09] LABS: BASOPHILS # (AUTO) 0.1 K/uL (0.0-0.2); BASOPHILS % (AUTO) 0.4 % (0.0-2.0); EOSINOPHILS % (AUTO) 0.2 % (0.0-4.0); HEMATOCRIT 40.6 % (36-48); LYMPHOCYTES # (AUTO) 2.8 K/uL (1.0-5.5); LYMPHOCYTES % (AUTO) 16.5 % (20.5-51.5); MEAN CORPUSCULAR HEMOGLOBIN 25 pg (27-31); MEAN CORPUSCULAR HGB CONC 32 % (32-36); MEAN CORPUSCULAR VOLUME 79 fL (79.0-98.0); MONOCYTES # (AUTO) 1.1 K/uL (0.0-1.0); MONOCYTES % (AUTO) 6.7 % (1.7-9.3); NEUTROPHILS # (AUTO) 12.7 K/uL (1.8-7.7); NEUTROPHILS % (AUTO) 76.2 % (40.0-70.0); PLATELET COUNT (AUTO) 298 K/uL (130-430); RED BLOOD CELL COUNT(AUTO) 5.16 MIL/uL (4.2-6.2); RED CELL DISTRIBUTION WIDTH 14.6 % (9.0-15.0); WHITE BLOOD COUNT (AUTO) 16.7 K/uL (4.8-10.8)
[2019-05-09 02:28] LABS: INR 1.1 (0.8-1.2); PROTHROMBIN TIME 10.6 SECS (9.5-12.5)
[2019-05-09 02:32] LABS: CALCIUM 9.7 mg/dL (8.4-11.0); CREATININE 1.41 mg/dL (0.55-1.30); POTASSIUM 3.8 mmol/L (3.5-5.1)
[2019-05-09 02:36] LABS: ALBUMIN 2.9 g/dL (3.4-4.8); TOTAL BILIRUBIN 0.4 mg/dL (0.0-1.0)
[2019-05-09] MEDS ORDERED: MIRT45TA83 PO (03:24)
[2019-05-09] MEDS ORDERED: ACET-2165 PO (03:27)
[2019-05-09] MEDS ORDERED: MIDO5TAB PO (03:29)
[2019-05-09] MEDS ORDERED: KCL 20 mEq in NS 1000 mL 1,000 ML IV ONE ×2 (03:30→04:41)
[2019-05-09] MEDS ORDERED: CALC-884 PO (03:32)
[2019-05-09] MEDS ORDERED: LOVI40 SQ (03:34)
[2019-05-09] MEDS ORDERED: TRAM50TA2 PO (03:36)
[2019-05-09] MEDS ORDERED: INSU100I26 SQ (03:37)
[2019-05-09] MEDS ORDERED: FENO54TA4 PO (03:38)
[2019-05-09] MEDS ORDERED: MEROPENEM 500 MG VIAL IV ONE (04:40)
[2019-05-09 06:00] VITALS: BP_SYST 130
[2019-05-09] MEDS: MEROPENEM 500 MG IVPB PREMIX 50 ML IV SCH ×3 (06:00→21:56)
[2019-05-09] MEDS: INSULIN REGULAR, HUMAN 100 UNITS/ML, 10 ML VIAL (humuLIN R) SUBCUT PRN ×4 (06:32→22:05)
[2019-05-09 08:00] VITALS: BP_SYST 127
[2019-05-09 12:00] VITALS: BP_SYST 117
[2019-05-09] MEDS ORDERED: IBUPROFEN 600 MG TABLET PO PRN (15:30)
[2019-05-09] MEDS ORDERED: traMADol HCL HCL 50 MG TABLET (ULTRAM) PO PRN (15:30)
[2019-05-09] MEDS ORDERED: MILK OF MAGNESIA 30 ML UDC PO PRN (15:30)
[2019-05-09] MEDS ORDERED: ACETAMINOPHEN 325 MG TABLET PO PRN (15:30)
[2019-05-09] MEDS ORDERED: MIDODRINE HCL 5 MG TABLET (PROAMATINE) PO PRN (15:30)
[2019-05-09 16:00] VITALS: BP_SYST 135
[2019-05-09] MEDS: KCL 20 mEq in 0.45% NS 1000 mL 1,000 ML IV SCH (17:54)
[2019-05-09 19:45] VITALS: BP_SYST 148
[2019-05-09] MEDS: ENOXAPARIN SODIUM 30 MG/0.3 ML SYRINGE SQ SCH (21:57)
[2019-05-09] MEDS: CALCIUM 500 MG/TAB PO SCH (21:57)
[2019-05-09] MEDS: MIRTAZAPINE 15 MG TABLET PO SCH (21:57)
[2019-05-09] MEDS: OXYBUTYNIN CHLORIDE 5 MG TABLET PO SCH (21:58)
[2019-05-09] MEDS: GABAPENTIN 100 MG CAPSULE PO SCH (21:58)
[2019-05-09] MEDS: SENNOSIDES 8.6 MG TABLET PO SCH (21:58)
[2019-05-09] MEDS: DOCUSATE SODIUM 100 MG CAPSULE PO SCH (21:58)
[2019-05-09] MEDS: ATORVASTATIN 10 MG TABLET PO SCH (21:58)
[2019-05-09] MEDS: INSULIN GLARGINE 100 UNITS/ML 10 ML VIAL SQ SCH (22:04)
[2019-05-10 01:56] VITALS: BP_SYST 137
[2019-05-10] MEDS: GABAPENTIN 100 MG CAPSULE PO SCH ×4 (06:19→21:43)
[2019-05-10] MEDS: MEROPENEM 500 MG IVPB PREMIX 50 ML IV SCH ×3 (06:19→21:51)
[2019-05-10] MEDS: INSULIN REGULAR, HUMAN 100 UNITS/ML, 10 ML VIAL (humuLIN R) SUBCUT PRN ×4 (06:22→21:50)
[2019-05-10 08:00] VITALS: BP_SYST 146
[2019-05-10] MEDS: DOCUSATE SODIUM 100 MG CAPSULE PO SCH ×2 (08:59→21:43)
[2019-05-10] MEDS: CALCIUM 500 MG/TAB PO SCH ×2 (08:59→21:43)
[2019-05-10] MEDS: OXYBUTYNIN CHLORIDE 5 MG TABLET PO SCH ×2 (08:59→21:00)
[2019-05-10] MEDS: LEVOTHYROXINE SODIUM 0.1 MG TABLET PO SCH (08:59)
[2019-05-10] MEDS: INSULIN GLARGINE 100 UNITS/ML 10 ML VIAL SQ SCH ×2 (09:31→21:47)
[2019-05-10] MEDS: KCL 20 mEq in 0.45% NS 1000 mL 1,000 ML IV SCH (11:13)
[2019-05-10 12:32] VITALS: BP_SYST 130
[2019-05-10] MEDS ORDERED: NYSTATIN 15 GM TOPICAL POWDER TP ONE (14:45)
[2019-05-10 17:01] VITALS: BP_SYST 146
[2019-05-10] MEDS: ENOXAPARIN SODIUM 30 MG/0.3 ML SYRINGE SQ SCH ×2 (21:00→21:48)
[2019-05-10] MEDS: SENNOSIDES 8.6 MG TABLET PO SCH (21:00)
[2019-05-10] MEDS: ATORVASTATIN 10 MG TABLET PO SCH (21:43)
[2019-05-10] MEDS: NYSTATIN 15 GM TOPICAL POWDER TP SCH (21:43)
[2019-05-10] MEDS: MIRTAZAPINE 15 MG TABLET PO SCH (21:43)
[2019-05-11 00:30] VITALS: BP_SYST 141
[2019-05-11] MEDS: MEROPENEM 500 MG IVPB PREMIX 50 ML IV SCH ×3 (05:09→21:41)
[2019-05-11] MEDS: GABAPENTIN 100 MG CAPSULE PO SCH ×3 (06:20→21:25)
[2019-05-11] MEDS: INSULIN REGULAR, HUMAN 100 UNITS/ML, 10 ML VIAL (humuLIN R) SUBCUT PRN ×3 (06:27→21:46)
[2019-05-11 08:00] VITALS: BP_SYST 142
[2019-05-11] MEDS: DOCUSATE SODIUM 100 MG CAPSULE PO SCH ×2 (09:20→21:25)
[2019-05-11] MEDS: LEVOTHYROXINE SODIUM 0.1 MG TABLET PO SCH (09:20)
[2019-05-11] MEDS: OXYBUTYNIN CHLORIDE 5 MG TABLET PO SCH ×2 (09:20→21:25)
[2019-05-11] MEDS: FENOFIBRATE NANOCRYSTALLIZED 48 MG TABLET (TRICOR) PO SCH (09:20)
[2019-05-11] MEDS: CALCIUM 500 MG/TAB PO SCH ×2 (09:20→21:24)
[2019-05-11] MEDS: NYSTATIN 15 GM TOPICAL POWDER TP SCH ×2 (09:21→21:30)
[2019-05-11] MEDS: INSULIN GLARGINE 100 UNITS/ML 10 ML VIAL SQ SCH ×3 (09:24→21:39)
[2019-05-11] MEDS: KCL 20 mEq in 0.45% NS 1000 mL 1,000 ML IV SCH (09:30)
[2019-05-11 09:32] LABS: BASOPHILS % (AUTO) 0.5 % (0.0-2.0); EOSINOPHILS # (AUTO) 0.2 K/uL (0.0-0.4); HEMATOCRIT 39.2 % (36-48); HEMOGLOBIN 12.6 g/dL (12.0-16.0); LYMPHOCYTES # (AUTO) 1.7 K/uL (1.0-5.5); LYMPHOCYTES % (AUTO) 21.1 % (20.5-51.5); MEAN CORPUSCULAR HEMOGLOBIN 25 pg (27-31); MEAN CORPUSCULAR HGB CONC 32 % (32-36); MEAN CORPUSCULAR VOLUME 78 fL (79.0-98.0); MONOCYTES # (AUTO) 0.7 K/uL (0.0-1.0); MONOCYTES % (AUTO) 8.8 % (1.7-9.3); NEUTROPHILS # (AUTO) 5.2 K/uL (1.8-7.7); NEUTROPHILS % (AUTO) 66.6 % (40.0-70.0); PLATELET COUNT (AUTO) 257 K/uL (130-430); RED BLOOD CELL COUNT(AUTO) 5.04 MIL/uL (4.2-6.2); RED CELL DISTRIBUTION WIDTH 14.8 % (9.0-15.0); WHITE BLOOD COUNT (AUTO) 7.9 K/uL (4.8-10.8)
[2019-05-11 09:47] LABS: CALCIUM 8.6 mg/dL (8.4-11.0); CREATININE 1.09 mg/dL (0.55-1.30); POTASSIUM 4.2 mmol/L (3.5-5.1)
[2019-05-11] MEDS ORDERED: GLUCOSE 15 GM GEL (in 37.5 GM TUBE) PO PRN (11:30)
[2019-05-11] MEDS ORDERED: DEXTROSE 50%-WATER 50 ML DISP.SYRIN IVP PRN (11:30)
[2019-05-11] MEDS ORDERED: D5W 1,000 ML IV PRN (11:30)
[2019-05-11 12:30] VITALS: BP_SYST 89
[2019-05-11 12:35] VITALS: BP_SYST 148
[2019-05-11 16:18] VITALS: BP_SYST 97
[2019-05-11 20:00] VITALS: BP_SYST 118
[2019-05-11] MEDS: SENNOSIDES 8.6 MG TABLET PO SCH (21:24)
[2019-05-11] MEDS: MIRTAZAPINE 15 MG TABLET PO SCH (21:25)
[2019-05-11] MEDS: ATORVASTATIN 10 MG TABLET PO SCH (21:25)
[2019-05-11] MEDS: ENOXAPARIN SODIUM 30 MG/0.3 ML SYRINGE SQ SCH (21:29)
[2019-05-12 01:19] VITALS: BP_SYST 143
[2019-05-12] MEDS: KCL 20 mEq in 0.45% NS 1000 mL 1,000 ML IV SCH (05:43)
[2019-05-12] MEDS: MEROPENEM 500 MG IVPB PREMIX 50 ML IV SCH ×3 (05:44→21:24)
[2019-05-12] MEDS: GABAPENTIN 100 MG CAPSULE PO SCH ×3 (06:20→21:23)
[2019-05-12 08:00] VITALS: BP_SYST 96
[2019-05-12] MEDS: CALCIUM 500 MG/TAB PO SCH ×2 (09:08→20:30)
[2019-05-12] MEDS: OXYBUTYNIN CHLORIDE 5 MG TABLET PO SCH ×2 (09:08→20:29)
[2019-05-12] MEDS: FENOFIBRATE NANOCRYSTALLIZED 48 MG TABLET (TRICOR) PO SCH (09:08)
[2019-05-12] MEDS: DOCUSATE SODIUM 100 MG CAPSULE PO SCH ×2 (09:08→20:30)
[2019-05-12] MEDS: LEVOTHYROXINE SODIUM 0.1 MG TABLET PO SCH (09:08)
[2019-05-12] MEDS: NYSTATIN 15 GM TOPICAL POWDER TP SCH ×2 (09:09→20:36)
[2019-05-12] MEDS: INSULIN GLARGINE 100 UNITS/ML 10 ML VIAL SQ SCH ×2 (09:13→20:39)
[2019-05-12] MEDS: INSULIN REGULAR, HUMAN 100 UNITS/ML, 10 ML VIAL (humuLIN R) SUBCUT PRN ×3 (11:53→20:43)
[2019-05-12 12:24] VITALS: BP_SYST 140
[2019-05-12 16:20] VITALS: BP_SYST 105
[2019-05-12 20:07] VITALS: BP_SYST 150
[2019-05-12] MEDS: SENNOSIDES 8.6 MG TABLET PO SCH (20:30)
[2019-05-12] MEDS: ATORVASTATIN 10 MG TABLET PO SCH (20:30)
[2019-05-12] MEDS: MIRTAZAPINE 15 MG TABLET PO SCH (20:30)
[2019-05-12] MEDS: ENOXAPARIN SODIUM 30 MG/0.3 ML SYRINGE SQ SCH (20:31)
[2019-05-13 01:16] VITALS: BP_SYST 133
[2019-05-13] MEDS: KCL 20 mEq in 0.45% NS 1000 mL 1,000 ML IV SCH (01:16)
[2019-05-13] MEDS: MEROPENEM 500 MG IVPB PREMIX 50 ML IV SCH ×2 (05:47→14:47)
[2019-05-13] MEDS: GABAPENTIN 100 MG CAPSULE PO SCH ×2 (06:19→14:47)
[2019-05-13] MEDS: INSULIN REGULAR, HUMAN 100 UNITS/ML, 10 ML VIAL (humuLIN R) SUBCUT PRN (06:22)
[2019-05-13 07:27] LABS: BASOPHILS # (AUTO) 0.1 K/uL (0.0-0.2); BASOPHILS % (AUTO) 0.7 % (0.0-2.0); EOSINOPHILS # (AUTO) 0.3 K/uL (0.0-0.4); EOSINOPHILS % (AUTO) 4.3 % (0.0-4.0); HEMATOCRIT 36.2 % (36-48); HEMOGLOBIN 11.8 g/dL (12.0-16.0); LYMPHOCYTES # (AUTO) 2.4 K/uL (1.0-5.5); LYMPHOCYTES % (AUTO) 31.3 % (20.5-51.5); MEAN CORPUSCULAR HEMOGLOBIN 25 pg (27-31); MEAN CORPUSCULAR HGB CONC 33 % (32-36); MEAN CORPUSCULAR VOLUME 77 fL (79.0-98.0); MONOCYTES # (AUTO) 0.6 K/uL (0.0-1.0); NEUTROPHILS # (AUTO) 4.3 K/uL (1.8-7.7); NEUTROPHILS % (AUTO) 55.7 % (40.0-70.0); PLATELET COUNT (AUTO) 302 K/uL (130-430); RED BLOOD CELL COUNT(AUTO) 4.68 MIL/uL (4.2-6.2); RED CELL DISTRIBUTION WIDTH 14.7 % (9.0-15.0); WHITE BLOOD COUNT (AUTO) 7.8 K/uL (4.8-10.8)
[2019-05-13 07:28] LABS: CALCIUM 8.5 mg/dL (8.4-11.0); POTASSIUM 3.8 mmol/L (3.5-5.1)
[2019-05-13 09:00] VITALS: BP_SYST 129
[2019-05-13] MEDS: LEVOTHYROXINE SODIUM 0.1 MG TABLET PO SCH (09:44)
[2019-05-13] MEDS: CALCIUM 500 MG/TAB PO SCH (09:44)
[2019-05-13] MEDS: DOCUSATE SODIUM 100 MG CAPSULE PO SCH (09:45)
[2019-05-13] MEDS: OXYBUTYNIN CHLORIDE 5 MG TABLET PO SCH (09:45)
[2019-05-13] MEDS: FENOFIBRATE NANOCRYSTALLIZED 48 MG TABLET (TRICOR) PO SCH (09:45)
[2019-05-13] MEDS: NYSTATIN 15 GM TOPICAL POWDER TP SCH (09:45)
[2019-05-13] MEDS: INSULIN GLARGINE 100 UNITS/ML 10 ML VIAL SQ SCH (09:53)
[2019-05-13 13:01] VITALS: BP_SYST 114
[2019-05-13 16:59] VITALS: BP_SYST 118
[2019-05-13 17:15] VITALS: BP_SYST 114
== END 2019-05-13 18:30 | DRG 871 ==
LOC: SED 23:23 → STU 05-09 03:17
PROVIDERS: ADMIT Family Medicine; ATTEND Family Medicine
DX: A41.51 Sepsis due to Escherichia coli [E. coli] (principal); G93.41 Metabolic encephalopathy; N39.0 Urinary tract infection, site not specified; N17.9 Acute kidney failure, unspecified; E03.9 Hypothyroidism, unspecified; E86.0 Dehydration; M19.90 Unspecified osteoarthritis, unspecified site; I12.9 Hypertensive chronic kidney disease with stage 1 through stage 4 chronic kidney disease, or unspecified chronic kidney disease; E11.22 Type 2 diabetes mellitus with diabetic chronic kidney disease; N18.9 Chronic kidney disease, unspecified; F41.9 Anxiety disorder, unspecified; E78.00 Pure hypercholesterolemia, unspecified; Z85.3 Personal history of malignant neoplasm of breast; Z87.891 Personal history of nicotine dependence; Z88.8 Allergy status to other drugs, medicaments and biological substances; Z79.899 Other long term (current) drug therapy; Z90.49 Acquired absence of other specified parts of digestive tract
CPT/HCPCS: 36415; 70450-TC; 71045; 80048; 80053; 82962; 83605; 83735-TC; 84484; 85025; 85610-TC; 85730-TC; 87040-TC; 87081; 87186-TC; 93005; 99285; G0378; J1650; J1815; J2185; J3480